=== PATIENT | female | born 1990 | race Caucasian/White ===

== ENCOUNTER 2021-11-18 09:14 | Emergency (ER) | payer OTHER, SELFPAY ==
[2021-11-18 09:15] VITALS: BP 106/62; PULSE 89; RESP 14; TEMP 36.1; O2SAT 97; BMI 31.7
--- NOTE | 2021-11-18 09:53 | EDS_ITS ---
HPI History of Present Illness Chief Complaint: Back Informant: patient Onset/Context/Timing Onset: Today Context: Gradual Onset Timing: Continuous Quality: Sharp and Aching Location: Lumbar and Right Leg Worsened by: improves with Movement Relieved by: Nothing Associated Symptoms Associated Symptoms: Radiation to Right Leg; Negative for Numbness, Tingling, Radiation to Left Leg, Abdominal Pain, Dysuria, Unable to Ambulate, Unable to Transfer, Urinary Retention, Urinary Incontinence, Constipation and Fecal Incontinence Narrative Narrative: Patient presents with low back pain that became worse today. Patient states she has a history of chronic low back pain. Patient states she recently moved to the area and has a new primary care physician but has not seen them ye t. Patient states her pain is over her lower lumbar area. Patient states the pain radiates down her right leg. Patient states nothing makes it better. Patient states it is worse with movement. Patient denies any fevers or chills. Patient denies any abdominal pain. Patient denies any bowel or bladder changes. Patient denies any saddle anesthesia. [facility] LICENSE OF [facility] Medical History Bipolar disorder Home Medications fluoxetine 40 mg PO DAILY 11/18/21 [History Last Taken Unknown] hydrocodone-acetaminophen 1 tab PO Q6H PRN PRN 3 Days #10 tablet 11/18/21 [Rx Last Taken Unknown] Allergy/AdvReac Type Severity Reaction Status Date / Time sumatriptan [From Imitrex] Allergy Mild Other Verified 11/18/21 09:17 Social History Smoking Status: Never smoker ROS ROS ED Constitutional Constitutional ED: Denies chills or fever(s) Eyes Eyes: Denies blurry vision or change in vision ENT ENT ED: Denies rhinorrhea or sore throat Cardiovascular Cardiovascular: Denies chest pain or palpitations Respiratory/Chest Respiratory/Chest: Denies cough or dyspnea Gastrointestinal Gastrointestinal: Denies nausea or vomiting Genitourinary Genitourinary ED: Denies dysuria or hematuria Musculoskeletal Musculoskeletal: Reports back pain; Denies neck pain Integumentary Denies abscess or rash Neurologic Neurologic: Denies headache(s) or weakness Allergic/Immunologic Allergic/Immunologic ED: Denies mouth swelling or urticaria EXAM Physical Exam Const Vital Signs: 11/18/21 09:15 Temperature 97.0 F L Temperature Source Temporal Pulse Rate 89 Respiratory Rate 14 Blood Pressure 106/62 Blood Pressure Mean 76 Pulse Ox 97 Oxygen Delivery Method Room Air Positive well nourished, well developed and obese General Appearance ED: well developed Nutritional Appearance: obese HEENT Reports moist mucous membranes Neck supple and no JVD Back/Spine Back/Spine Narrative: There is tenderness over the lower lumbar spine and paraspinal muscles, worse on the right. There is no edema or ecchymosis. There is no bony crepitance or step-off. Range of motion was slightly limited in all motions of the lumbar spine secondary to pain. Strength is 5/5 bilaterally in the lower extremities. There are no sensory deficits noted. Deep tendon reflexes are 2/4 bilaterally. Neuro oriented x3 and no sensory deficits noted Sensorium / Orientation: alert Motor Exam: strength 5/5 throughout Deep Tendon Reflexes: Rt Patellar (L4): 2+, Lt Patellar (L4): 2+, Rt Ankle (S1): 2+ and Lt Ankle (S1): 2+ Deep Tendon Reflexes Back: Rt Patellar (L4): 2+, Lt Patellar (L4): 2+, Rt Ankle (S1): 2+ and Lt Ankle (S1): 2+ Psych mental status grossly normal MDM MDM MDM Narrative Medical decision making narrative: Patient was given injection of morphine here. Patient was given a prescription for short course of [place]. Patient was instructed to use ice to the area. Patient was instructed to follow-up with her primary care physician in 5 to 7 days. Patient understood and was agreeable with the plan. All questions were answered. Discharge Plan Triage Chief Complaint: Back ED Provider: Ernesto Burt Dx/Rx/DC Orders Clinical Impression: Sciatica Instructions: ED Sciatica Prescriptions: New hydrocodone-acetaminophen [hydrocodone-acetaminophen] 1 TABLET tablet 1 tab PO Q6H PRN PRN (Reason: Pain) 3 Days Qty: 10 RF: 0 No Action fluoxetine 40 mg Capsule 40 mg PO DAILY RF: 0 Referrals: Rg Muñoz MD [NON-STAFF] - 3-5 Days Disposition Disposition: Home, Self Care
[2021-11-18] MEDS: Morphine 4 MG/ML Syringe IM (10:13)
[2021-11-18 10:25] VITALS: PULSE 73; RESP 16; O2SAT 98
--- NOTE | 2021-11-18 10:26 | ED.RN ---
THIS NURSE REVIEWED D/C INSTRUCTIONS WITH PT. PT VERBALIZED UNDERSTANDING OF INSTRUCTIONS. PT DENIES FURTHER NEEDS OR QUESTIONS AT THIS TIME
== END 2021-11-18 10:30 | disposition home or self-care (01) ==
LOC: ED 10:14
PROVIDERS: Emergency Provider Emergency Medicine; Visit Provider Emergency Medicine
DX: M54.41 Lumbago with sciatica, right side (principal); E66.9 Obesity, unspecified; Z79.899 Other long term (current) drug therapy
CPT/HCPCS: 96372; 99282

== ENCOUNTER 2021-11-26 08:16 | Emergency (ER) | payer OTHER, SELFPAY ==
[2021-11-26 08:17] VITALS: BP 108/74; PULSE 90; RESP 16; TEMP 36.1; O2SAT 98; BMI 31.8
--- NOTE | 2021-11-26 08:36 | ED.VIS.BACK ---
HPI History of Present Illness Chief Complaint: Back Narrative Narrative: Patient has chronic back pain. This has been ongoing for a few years, she exacerbated it again about a month ago and is has had pain ever since. She does have an appointment but it is 3 weeks from now. She has no radiation of the pain she has no bowel or bladder compromise. No urinary retention symptoms. No recent fever or chills. She does not know an event that would have caused this pain. [facility] Medical History Bipolar disorder Home Medications fluoxetine 40 mg PO DAILY 11/18/21 [History Last Taken Unknown] hydrocodone-acetaminophen 1 tab PO Q6H PRN PRN 3 Days #10 tablet 11/18/21 [Rx Last Taken Unknown] hydrocodone-acetaminophen 1 tab PO Q8H PRN 3 Days #10 tab 11/26/21 [Rx Last Taken Unknown] tizanidine 4 mg PO QHS PRN #20 tab 11/26/21 [Rx Last Taken Unknown] Allergy/AdvReac Type Severity Reaction Status Date / Time sumatriptan [From Imitrex] Allergy Mild Other Verified 11/26/21 08:20 Social History Smoking Status: Never smoker ROS ROS ED ROS Narrative Past medical history: Reviewed Medications: Reviewed Social history: Noncontributory Review of systems: All systems negative except as indicated General: No fever Eyes: No visual changes ENT: No upper airway congestion, normal voice Neck: No neck pain Cardiovascular: No chest pain Respiratory: No shortness of breath or cough Gastrointestinal: No abdominal pain, nausea vomiting or diarrhea Genitourinary: No dysuria. No urinary retention symptoms Musculoskeletal: Back pain as in HPI Skin: No rash Neurological: No memory loss, confusion or any focal weakness Psych: No recent behavioral changes Hematologic: No easy bleeding or easy bruising EXAM Physical Exam Narrative Exam Narrative: Vitals reviewed General: Patient appears in some discomfort HEENT: Moist mucous membranes Neck: Nontender Cardiovascular normal heart rate Respiratory: No respiratory difficulty speaking in full sentences Abdomen: Soft and nontender, there is no suprapubic mass or pain Back: Some back pain in the lower back region both spinal and paraspinal. No step-offs. Some flattening of the lordosis. Extremities: Moves all extremities without joint pain or signs of trauma Neurological: There is normal plantar flexion and dorsiflexion of both feet and great toes. Patellar and Achilles reflexes are normal. Normal strength and sensation. Negative straight leg test. Skin: No rash Psychiatric: Slightly anxious. Const Vital Signs: 11/26/21 08:17 Temperature 97.0 F L Temperature Source Temporal Pulse Rate 90 Respiratory Rate 16 Blood Pressure 108/74 Blood Pressure Mean 85 Pulse Ox 98 Oxygen Delivery Method Room Air MDM MDM MDM Narrative Medical decision making narrative: Patient has back pain. No radicular symptoms. No signs of cauda equina. She has had x-rays in the past which were unremarkable. She does not meet criteria for MRI. I will treat her symptomatically she is to follow-up so she can get physical therapy and other treatments. Discharge Plan Triage Chief Complaint: Back ED Provider: Chapincito Negron Dx/Rx/DC Orders Clinical Impression: Acute lumbar myofascial strain Instructions: ED Back Pain (Acute or Chronic) Prescriptions: New hydrocodone-acetaminophen 5-325 mg tablet 1 tab PO Q8H PRN (Reason: pain) 3 Days Qty: 10 RF: 0 tizanidine 4 mg tablet 4 mg PO QHS PRN (Reason: muscle spasticity) Qty: 20 RF: 0 No Action fluoxetine 40 mg Capsule 40 mg PO DAILY RF: 0 hydrocodone-acetaminophen [hydrocodone-acetaminophen] 1 TABLET tablet 1 tab PO Q6H PRN PRN (Reason: Pain) 3 Days Qty: 10 RF: 0 Primary Care Provider: Care Physician,No Primary Referrals: Care Physician,No Primary [Primary Care Provider] - Disposition Disposition: Home, Self Care
[2021-11-26] MEDS: oxyCODONE 5 MG Tablet PO (09:07)
[2021-11-26] MEDS: cycloBENZAPRine HCl 10 MG Tablet PO (09:08)
== END 2021-11-26 09:32 | disposition home or self-care (01) ==
LOC: ED 08:42
PROVIDERS: Emergency Provider Emergency Medicine; Visit Provider Emergency Medicine
DX: S39.012A Strain of muscle, fascia and tendon of lower back, initial encounter (principal); G89.29 Other chronic pain; X58.XXXA Exposure to other specified factors, initial encounter
CPT/HCPCS: 99282

== ENCOUNTER 2021-12-06 03:22 | Emergency (ER) | payer OTHER, SELFPAY ==
[2021-12-06 03:23] VITALS: BP 106/58; PULSE 76; RESP 16; TEMP 36.8; O2SAT 95; BMI 32.3
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
[2021-12-06] MEDS: Ketorolac 60 MG/2 ML Vial IM (03:50)
[2021-12-06] MEDS: diazePAM 5 MG Tablet PO (03:51)
[2021-12-06] MEDS: oxyCODONE 5 MG Tablet 10 MG PO (03:51)
[2021-12-06 04:09] VITALS: BP 112/60; PULSE 79; RESP 18; O2SAT 96
== END 2021-12-06 04:10 | disposition home or self-care (01) ==
LOC: ED 03:56
PROVIDERS: Emergency Provider Emergency Medicine; Visit Provider Emergency Medicine
DX: M54.9 Dorsalgia, unspecified (principal); G89.29 Other chronic pain
CPT/HCPCS: 96372; 99283

== ENCOUNTER 2022-01-13 09:24 | Emergency (ER) | payer BC, OTHER, SELFPAY ==
[2022-01-13 09:25] VITALS: BP 107/75; PULSE 79; RESP 16; TEMP 35.9; O2SAT 99; BMI 30.9
--- NOTE | 2022-01-13 10:26 | ED.VIS.BACK ---
HPI History of Present Illness Chief Complaint: Back Informant: patient Onset/Context/Timing Onset: Days Context: Gradual Onset Timing: Continuous Quality: Dull and - (Stabbing) Location: Lumbar Worsened by: improves with Movement and Ambulation Relieved by: Nothing Associated Symptoms Associated Symptoms: Numbness, Tingling and Dysuria; Negative for Radiation to Right Leg, Radiation to Left Leg, Fever, Abdominal Pain, Unable to Ambulate, Unable to Transfer, Urinary Retention, Urinary Incontinence, Constipation and Fecal Incontinence Narrative Narrative: Patient presents with back pain that has gotten worse over the past couple days. Patient states it is constant. Patient describes it as dull and stabbing. Patient states it is in her lower back and radiates into both hips and buttocks. Patient states her pain is worse with movement and with ambulation. Patient admits to some numbness and tingling in her buttocks. Patient also admits to some dysuria. Patient denies any urinary or stool incontinence. Patient denies any saddle anesthesia. [facility] Medical History Bipolar disorder Home Medications fluoxetine 40 mg PO DAILY 01/13/22 [History Last Taken Unknown] hydrocodone-acetaminophen 1 tab PO Q6H PRN PRN 3 Days #10 tablet 01/13/22 [Rx Last Taken Unknown] Allergy/AdvReac Type Severity Reaction Status Date / Time sumatriptan [From Imitrex] Allergy Mild Other Verified 01/13/22 09:25 Social History Smoking Status: Never smoker substance use type: does not use ROS ROS ED Constitutional Constitutional ED: Denies chills or fever(s) Eyes Eyes: Denies blurry vision or change in vision ENT ENT ED: Reports rhinorrhea; Denies sore throat Cardiovascular Cardiovascular: Denies chest pain or palpitations Respiratory/Chest Respiratory/Chest: Denies cough or dyspnea Gastrointestinal Gastrointestinal: Denies nausea or vomiting Genitourinary Genitourinary ED: Denies dysuria or hematuria Musculoskeletal Musculoskeletal: Reports back pain; Denies neck pain Integumentary Denies abscess or rash Neurologic Neurologic: Reports headache(s); Denies weakness Allergic/Immunologic Allergic/Immunologic ED: Denies mouth swelling or urticaria EXAM Physical Exam Const Vital Signs: 01/13/22 09:25 Temperature 96.6 F L Temperature Source Temporal Pulse Rate 79 Respiratory Rate 16 Blood Pressure 107/75 Blood Pressure Mean 85 Pulse Ox 99 Oxygen Delivery Method Room Air Positive well nourished and well developed General Appearance ED: well developed HEENT Reports moist mucous membranes Back/Spine Back/Spine Narrative: There is tenderness over the lumbar spine and right lumbar paraspinal muscles. There is no edema or ecchymosis. There is no bony crepitance or step-off. There is no deformity noted. Range of motion was limited in all motions of the lumbar spine secondary to pain. Lumbar Spine / Lower Back: ROM limited Extremity normal to inspection General Extremety ED: Negative for edema or tenderness General Extremity: Negative for edema Neuro oriented x3 and no sensory deficits noted Sensorium / Orientation: alert Motor Exam: strength 5/5 throughout Deep Tendon Reflexes: Rt Patellar (L4): 2+, Lt Patellar (L4): 2+, Rt Ankle (S1): 2+ and Lt Ankle (S1): 2+ Deep Tendon Reflexes Back: Rt Patellar (L4): 2+, Lt Patellar (L4): 2+, Rt Ankle (S1): 2+ and Lt Ankle (S1): 2+ Psych mental status grossly normal MDM MDM MDM Narrative Medical decision making narrative: Patient was given a dose of [place] here. X-rays of the lumbar spine were obtained. There are 3 views. On my interpretation, there is no acute fracture. There is some mild degenerative changes. Urinalysis was obtained. There is no evidence of urinary tract infection. Patient was advised of her findings. Patient states she was still having some pain in her back. Patient was given an injection of morphine. Patient was given referral for primary care physician. Patient was given a prescription for a short course of [place]. Patient was instructed to use ice to the area. Patient was instructed to return if worse in any way. Patient understood and was agreeable with the plan. All questions were answered. Lab Data Attestation: I reviewed the patient's lab results. Labs: Laboratory Results - last 24 hr 01/13/22 12:30 Urine Color Yellow Urine Clarity Sl. Cloudy Urine pH 8.0 Ur Specific Cat[place] 1.010 Urine Protein Negative Urine Glucose (UA) Normal Urine Ketones Negative Urine Occult Blood Negative Urine Nitrite Negative Urine Bilirubin Negative Urine Urobilinogen Normal Ur Leukocyte Esterase Negative Urine RBC 0 SEEN Urine WBC 0 SEEN Ur Squamous Epith Cells 5-10 SEEN Urine Bacteria 0 SEEN Urine Mucus 0 SEEN Radiography X-Ray: LS SPine, Read by ED Physician, Read by Radiologist and DJD Diagnostic Testing: Clinical Impression(s) from Imaging Studies Lumbar Spine X-Ray 01/13/22 10:32 IMPRESSION: 1. Mild degenerative disc disease Electronically Signed: Tyrone Aguilera MD at 11:40 EST Reading Location ID and State: [address] [place] [address] , Service support , Discharge Plan Triage Chief Complaint: Back ED Provider: Ernesto Burt Dx/Rx/DC Orders Clinical Impression: Low back pain Instructions: ED Back Pain (Acute or Chronic) Prescriptions: New hydrocodone-acetaminophen [hydrocodone-acetaminophen] 1 TABLET tablet 1 tab PO Q6H PRN PRN (Reason: Pain) 3 Days Qty: 10 RF: 0 No Action fluoxetine 40 mg capsule 40 mg PO DAILY RF: 0 Primary Care Provider: Care Physician,No Primary Referrals: Quentin Zimmerman MD [STAFF PHYSICIAN] - 3-5 Days Care Physician,No Primary [Primary Care Provider] - Disposition Disposition: Home, Self Care
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
[2022-01-13] MEDS: HYDROcodone Bitartrate/Apap 5/325 Tablet PO (10:54)
--- NOTE | 2022-01-13 12:10 | CASEMGMT ---
DRU GARG note: Today's visit noted to be patient's fourth ER visit for back pain since 11/18/2021. DRU GARG to patient's room to speak with patient. DRU GARG introduced self and role at [facility]. Patient alert and oriented, agreeable to speaking with DRU GARG. Patient confirms that she does not have a primary care physician. Patient provided with [facility] Healthcare Provider Directory and encouraged to review directory and contact provider of choice to establish care. Patient questions, Are they affiliated with the [facility]? Because I don't want to see anybody at the [facility]. Patient made aware [facility] providers, as well as non-[facility] providers, listed on directory. Voiced understanding. Patient denies questions, concerns or needs. DRU Buckley CM
[2022-01-13] MEDS: Morphine 2 MG/ML Syringe IM (12:32)
[2022-01-13 12:36] LABS: Bacteria 0 SEEN /hpf (None Seen); Mucous, Urine 0 SEEN /hpf (<or=2+); Red Blood Cells-Urine 0 SEEN /hpf (0-5); White Blood Cells 0 SEEN /hpf (0-5)
[2022-01-13 12:38] LABS: Color, Urine Yellow (Yellow); Glucose, Dipstick Normal (Normal); Ketone-Dipstick Negative (Negative); Leukocyte Esterase-Dipstick Negative /ul (Negative); Nitrite-Dipstick Negative (Negative); Occult Blood-Urine Negative /ul (Negative); Protein-Dipstick Negative (Negative); Urine Bilirubin Dipstick Negative (Negative); Urine Clarity Sl. Cloudy (Clear); Urine Urobilinogen Normal (Normal)
[2022-01-13 12:47] LABS: Squamous Epithelial Cells - UA 5-10 SEEN /hpf (5-10)
== END 2022-01-13 13:36 | disposition home or self-care (01) ==
PROVIDERS: Emergency Provider Emergency Medicine; Visit Provider Emergency Medicine
DX: M54.50 Low back pain, unspecified (principal); Z79.899 Other long term (current) drug therapy
CPT/HCPCS: 72100; 81001; 96372; 99283

== ENCOUNTER 2022-04-18 07:30 | Emergency (ER) | payer BC, OTHER, SELFPAY ==
[2022-04-18 07:31] VITALS: BP 107/71; PULSE 78; RESP 16; TEMP 36.5; O2SAT 97; BMI 31.8
--- NOTE | 2022-04-18 08:09 | EDS_ITS ---
HPI History of Present Illness Chief Complaint: Back Narrative Narrative: 32-year-old female presenting with back pain. She described this is nontraumatic. She describes this as a chronic recurrent issue. She describes it as right-sided radiating to the right gluteal and right hamstring. She is able to ambulate although it is worse with movement. Its worse with twisting and rotating her trunk. She states she is seen a physician in [place] for this as well as in [place]. She states that she is also seeing a primary care here in [place]. She states that she was told she is going to need physical therapy although she has not done this recently. Her last physical therapy was in June with a different physician out of state. Patient states that this was unsuccessful. No urinary complaints. No loss of bladder or bowel control. [facility] Medical History Bipolar disorder Home Medications fluoxetine 40 mg PO DAILY 01/13/22 [History Last Taken Unknown] prednisone 40 mg PO DAILY 2 Days #8 tab 04/18/22 [Rx Last Taken Unknown] tizanidine [Zanaflex] 4 mg PO Q8H PRN #14 cap 04/18/22 [Rx Last Taken Unknown] Allergy/AdvReac Type Severity Reaction Status Date / Time sumatriptan [From Imitrex] Allergy Mild Other Verified 04/18/22 07:33 Social History Smoking Status: Never smoker alcohol intake: current substance use type: does not use ROS ROS ED Constitutional Constitutional ED: Denies chills, fever(s) or sweats Eyes Eyes: Denies blurry vision or change in vision ENT ENT ED: Denies ear pain or sore throat Cardiovascular Cardiovascular: Denies chest pain, palpitations or racing heartbeat Respiratory/Chest Respiratory/Chest: Denies cough, dyspnea or sputum Gastrointestinal Gastrointestinal: Denies abdominal pain, constipation, diarrhea, nausea or vomiting Genitourinary Genitourinary ED: Denies dysuria, hematuria or urinary frequency Musculoskeletal Musculoskeletal: Reports back pain; Denies arthralgias, myalgias or neck pain Integumentary Denies abscess, Abrasions or rash Neurologic Neurologic: Denies headache(s), paresthesias or weakness Psychiatric Psychiatric: Denies anxiety, depression, suicidal ideation or suicidal thoughts Endocrine Endocrinology: Denies polydipsia or polyuria EXAM Physical Exam Const Vital Signs: 04/18/22 07:31 Temperature 97.7 F L Temperature Source Temporal Pulse Rate 78 Respiratory Rate 16 Blood Pressure 107/71 Blood Pressure Mean 83 Pulse Ox 97 Oxygen Delivery Method Room Air Positive well nourished General Appearance ED: NAD HEENT Reports moist mucous membranes Negative for trauma Eyes PERRL and EOMs intact bilaterally Resp normal respiratory effort Cardio regular rate and regular rhythm Back/Spine Lumbar Spine / Lower Back: lumbar ROM normal, paraspinal muscle tenderness right and straight leg raise positive right at 40 degrees; Negative for lumbar spinal tenderness Sacrum: Negative for ecchymosis Coccyx: Negative for swelling Extremity normal to inspection General Extremety ED: Yes edema and tenderness General Extremity: edema Neuro oriented x3 and no sensory deficits noted Sensorium / Orientation: alert Motor Exam: strength 5/5 throughout Psych mental status grossly normal Skin no rashes or lesions noted MDM MDM MDM Narrative Medical decision making narrative: Patient presenting with recurrent back pain. She states she was told she needs physical therapy to improve this. She states this is currently nontraumatic and she woke up with pain. She denies any loss of bladder bowel control. She denies saddle anesthesia. She does have some radicular pain going down her right gluteal and hamstring on the right. Patient given Norflex and Toradol in the ER. I spent a great deal of time discussing with her the process of physical therapy and trying to improve. I also discussed with her stretching exercises to help her improve her pain. She will be given a prescription for prednisone and muscle relaxers. I do not believe she is needs any imaging as this is nontraumatic and she has had imaging in the past which was nondiagnostic. Patient appears to be amenable to this plan and she is discharged home in stable condition. Impression: 1. Lumbar strain 2. Lumbar radiculopathy Lab Data Attestation: I reviewed the patient's lab results. Discharge Plan Triage Chief Complaint: Back ED Provider: Dinesh Shepard Dx/Rx/DC Orders Instructions: Back Exercises: Lower Back Stretch, ED Back Exercises, Lumbar, ED Back Sprain/Strain Prescriptions: New tizanidine [Zanaflex] 4 mg capsule 4 mg PO Q8H PRN (Reason: muscle spasticity) Qty: 14 RF: 0 prednisone 10 mg tablet 40 mg PO DAILY 2 Days Qty: 8 RF: 0 No Action fluoxetine 40 mg capsule 40 mg PO DAILY RF: 0 Primary Care Provider: Fouzia Amezquita NP Referrals: Fouzia Amezquita NP, [employer]ER-[employer] [Primary Care Provider] - Disposition Disposition: Home, Self Care
[2022-04-18] MEDS: predniSONE 20 MG Tablet 60 MG PO (08:12)
[2022-04-18] MEDS: Orphenadrine 60 MG/2 ML Ampul IM (08:12)
[2022-04-18] MEDS: Ketorolac 15 MG/ML Vial IM (08:13)
== END 2022-04-18 08:43 | disposition home or self-care (01) ==
PROVIDERS: Emergency Provider Student in an Organized Health Care Education/Training Program; PCP Clinical Nurse Specialist; Visit Provider Student in an Organized Health Care Education/Training Program
DX: S39.012A Strain of muscle, fascia and tendon of lower back, initial encounter (principal); F31.9 Bipolar disorder, unspecified; X58.XXXA Exposure to other specified factors, initial encounter; M54.16 Radiculopathy, lumbar region; G89.29 Other chronic pain
CPT/HCPCS: 96372; 99283

== ENCOUNTER 2023-07-14 09:28 | Emergency (ER) | payer OTHER, SELFPAY ==
[2023-07-14 09:29] VITALS: PULSE 78; RESP 14; TEMP 36.4; O2SAT 98; BMI 29.2
--- NOTE | 2023-07-14 09:40 | EDS_ITS ---
HPI History of Present Illness Chief Complaint: Headache Narrative Narrative: Patient presents with a gradual onset of headache for few days. This is similar to prior migraine headaches. She has photophobia but no vision changes she has some nausea but no vomiting. She has no neck pain or stiffness she has no fevers or chills. She has no neurological symptoms. [facility] Medical History Bipolar disorder Home Medications fluoxetine 40 mg capsule 40 mg PO DAILY 01/13/22 [History Last Taken Unknown] prednisone 10 mg tablet 40 mg (4 x 10 mg) PO DAILY 2 days #8 tabs 04/18/22 [Rx Last Taken Unknown] tizanidine 4 mg capsule (Zanaflex) 4 mg PO Q8H PRN muscle spasticity #14 caps 04/18/22 [Rx Last Taken Unknown] Allergy/AdvReac Type Severity Reaction Status Date / Time sumatriptan [From Imitrex] Allergy Mild Other Verified 04/18/22 07:33 Social History Smoking Status: Never smoker alcohol intake: current substance use type: does not use ROS ROS ED ROS Narrative Past medical history: Reviewed Medications: Reviewed Social history: Noncontributory Review of systems: All systems negative except as indicated General: No fever. Headache as in HPI Eyes: No visual changes. Some photophobia ENT: No upper airway congestion, normal voice Neck: No neck pain Cardiovascular: No chest pain Respiratory: No shortness of breath or cough Gastrointestinal: No abdominal pain. There is nausea present Genitourinary: No dysuria Musculoskeletal: Denies myalgias no difficulty with ambulation Skin: No rash Neurological: No memory loss, confusion or any focal weakness EXAM Physical Exam Narrative Exam Narrative: Physical exam General: Patient appears somewhat uncomfortable Head: Normocephalic, Atraumatic Eyes: Conjunctiva not pale. Pupils are 3 mm and reactive ENT: Moist mucous membranes Neck: Supple, Nontender, No lymphadenopathy. No meningismus Cardiovascular: Regular rate, Regular rhythm Respiratory: No distress, CTA bilaterally Abdomen: Soft, Nontender, Nondistended Back: Nontender, Normal Inspection. Negative for: CVA tenderness Extremities: Nontender, No edema Skin: Normal color, No rash Neurological: Alert, Normal Strength, Normal Sensation Const Vital Signs: 07/14/23 09:29 Temperature 97.5 F L Temperature Source Temporal Pulse Rate 78 Respiratory Rate 14 Pulse Ox 98 Oxygen Delivery Method Room Air MDM MDM MDM Narrative Medical decision making narrative: Patient has a gradual onset of her chronic recurrent migraine. She has no neurological symptoms, she has no neck stiffness or fever or chills. Therefore I believe she likely has a migraine. I am not worried about meningitis, I am n ot worried about any intracranial mass, I am not worried about any kind of stroke or subarachnoid hemorrhage. Patient does not meet criteria for head CT. She does not meet criteria for any blood work. She received IV fluids and headache cocktail with significant improvement of her symptoms. I believe she can be safely discharged home. Discharge Plan Triage Chief Complaint: Headache ED Provider: Chapincito Negron Dx/Rx/DC Orders Clinical Impression: Migraine, Nausea Instructions: ED Headache Unspecified Prescriptions: No Action fluoxetine 40 mg capsule 40 mg PO DAILY Patient Comments: take 1 capsule by mouth once daily tizanidine [Zanaflex] 4 mg capsule 4 mg PO Q8H PRN (Reason: muscle spasticity) Qty: 14 0RF prednisone 10 mg tablet 40 mg PO DAILY 2 Days Qty: 8 0RF Primary Care Provider: Fouzia Amezquita NP Referrals: Fouzai Amezquita REAL ESTATE INVESTOR, REAL ESTATE INVESTOR-C [Primary Care Provider] - 3-5 Days Disposition Disposition: Home, Self Care
[2023-07-14] MEDS: 0.9% Normal Saline 1,000 ML 999 ML IV (09:49)
[2023-07-14] MEDS: Metoclopramide 10 MG/2 ML Vial IV (09:50)
[2023-07-14] MEDS: DiphenhydrAMINE 50 MG/ML Syringe 25 MG IV (09:51)
[2023-07-14] MEDS: Ketorolac 15 MG/ML Vial IV (09:52)
[2023-07-14 11:02] VITALS: BP 154/72; PULSE 76; RESP 16; O2SAT 99
== END 2023-07-14 11:03 | disposition home or self-care (01) ==
PROVIDERS: Emergency Provider Emergency Medicine; PCP Clinical Nurse Specialist; Visit Provider Emergency Medicine
DX: G43.909 Migraine, unspecified, not intractable, without status migrainosus (principal)
CPT/HCPCS: 96361; 96374; 96375; 99283; J7030

== ENCOUNTER 2023-07-16 09:07 | Emergency (ER) | payer OTHER, SELFPAY ==
[2023-07-16 09:08] VITALS: BP 89/77; PULSE 55; RESP 14; TEMP 36.6; O2SAT 97; BMI 30.9
[2023-07-16] MEDS: DiphenhydrAMINE 50 MG/ML Syringe 25 MG IV (09:41)
[2023-07-16] MEDS: 0.9% Normal Saline 1,000 ML 999 ML IV (09:41)
[2023-07-16] MEDS: Ketorolac 30 MG/ML Syringe IV (09:42)
[2023-07-16] MEDS: Metoclopramide 10 MG/2 ML Vial IV (09:42)
--- NOTE | 2023-07-16 10:53 | EX.ED.DYSGE1 ---
HPI History of Present Illness Chief Complaint: Headache Informant: patient Onset/Context/Timing Onset: Today Context: Gradual Onset Current Severity: Moderate Maximum Severity: Moderate Narrative Narrative: Patient presents secondary to migraine that started this morning. Was gradual in onset. She does have a history of migraines. Patient was actually treated in the ER couple days ago for similar. She states that she also has some head congestion with nausea and chills. [facility] Medical History (Updated 07/16/23 @ 10:[address] Tracey Coleman MD) Bipolar disorder Migraine Home Medications fluoxetine 40 mg capsule 40 mg PO DAILY 01/13/22 [History Last Taken Unknown] prednisone 10 mg tablet 40 mg (4 x 10 mg) PO DAILY 2 days #8 tabs 04/18/22 [Rx Last Taken Unknown] tizanidine 4 mg capsule (Zanaflex) 4 mg PO Q8H PRN muscle spasticity #14 caps 04/18/22 [Rx Last Taken Unknown] Allergy/AdvReac Type Severity Reaction Status Date / Time sumatriptan [From Imitrex] Allergy Mild Other Verified 07/16/23 09:08 Social History Smoking Status: Never smoker alcohol intake: current substance use type: does not use ROS ROS ED Constitutional Constitutional ED: Reports chills; Denies fever(s) Eyes Eyes: Reports other Details: Sees wavy lines in vision consistent with prior migraines ENT ENT ED: Reports other Details: Head congestion ; Denies rhinorrhea or sore throat Cardiovascular Cardiovascular: Denies chest pain or palpitations Respiratory/Chest Respiratory/Chest: Reports cough; Denies dyspnea Gastrointestinal Gastrointestinal: Denies abdominal pain, nausea or vomiting Genitourinary Genitourinary ED: Denies dysuria Musculoskeletal Musculoskeletal: Denies back pain or extremity pain Integumentary Denies Abrasions or rash Neurologic Neurologic: Reports headache(s); Denies weakness Psychiatric Psychiatric: Denies anxiety or depression Allergic/Immunologic Allergic/Immunologic ED: Denies lip swelling or urticaria EXAM Physical Exam Const Vital Signs: 07/16/23 09:08 Temperature 98 F Temperature Source Temporal Pulse Rate 55 L Respiratory Rate 14 Blood Pressure 89/77 L Blood Pressure Mean 81 Pulse Ox 97 Oxygen Delivery Method Room Air Positive well nourished and well developed General Appearance ED: well developed HEENT Reports moist mucous membranes Eyes EOMs intact bilaterally Chest Wall inspection of chest normal and palpation of chest normal Resp normal respiratory effort and clear to auscultation bilaterally Cardio regular rhythm Rate: bradycardia GI normal to inspection, nondistended, normoactive bowel sounds Extremity normal to inspection Neuro oriented x3 and no sensory deficits noted Motor Exam: strength 5/5 throughout Skin no rashes or lesions noted MDM MDM MDM Narrative Medical decision making narrative: Patient was given Toradol, Reglan, Benadryl, IV fluids. Given her congestion a COVID and influenza test is obtained. Treatment and Re-Evaluation :: On repeat evaluation patient reports feeling much improved. Her COVID test did return positive. This was discussed with her. She was encouraged to contact her company to determine how long she will need to be off work. Return instructions given. Discharge Plan Triage Chief Complaint: Headache ED Provider: Tracey Coleman Dx/Rx/DC Orders Clinical Impression: COVID, Migraine Instructions: Coronavirus Disease 2019 (COVID-19): Overview, Coronavirus Disease 2019 (COVID-19): Caring for Yourself or Others, ED, Migraine (Classical) Prescriptions: No Action fluoxetine 40 mg capsule 40 mg PO DAILY Patient Comments: take 1 capsule by mouth once daily tizanidine [Zanaflex] 4 mg capsule 4 mg PO Q8H PRN (Reason: muscle spasticity) Qty: 14 0RF prednisone 10 mg tablet 40 mg PO DAILY 2 Days Qty: 8 0RF Stand Alone Forms: ED Work / School Excuse Primary Care Provider: Fouzia Amezquita NP Referrals: Fouzia Amezquita NP, [employer]OES SALESPERSON-C [Primary Care Provider] - 1-2 Weeks Disposition Disposition: Home, Self Care
[2023-07-16 11:16] VITALS: BP 105/66; PULSE 63; RESP 18; O2SAT 100
== END 2023-07-16 11:17 | disposition home or self-care (01) ==
PROVIDERS: Emergency Provider Emergency Medicine; PCP Clinical Nurse Specialist; Visit Provider Emergency Medicine
DX: U07.1 COVID-19 (principal); G43.909 Migraine, unspecified, not intractable, without status migrainosus
CPT/HCPCS: 87428; 96361; 96374; 96375; 99283; J7030; A4216

== ENCOUNTER 2023-07-24 10:01 | Emergency (ER) | payer OTHER, SELFPAY ==
[2023-07-24 10:03] VITALS: BP 115/74; PULSE 72; RESP 14; TEMP 35.1; O2SAT 97; BMI 30.2
--- NOTE | 2023-07-24 10:17 | EX.ED.VIS.HA ---
HPI History of Present Illness Chief Complaint: Headache Detail of Chief Complaint: Diagnosed with COVID about 8 days ago. Informant: patient Onset/Context/Timing Onset: Today Context: Gradual Timing: Continuous Quality -Headache: Positive for Similar Prior Headaches and Dull Current Severity: Mild Maximum Severity: Mild Associated Symptoms/Injury Associated Symptoms: Positive for Nausea and Vomiting Injury - HICKS: Negative for Direct Trauma, Fall or Assault Narrative Narrative: 33 -year-old female history of bipolar disorder migraine headaches. Seen in ER twice last week on diagnosed with COVID. She been having intermittent headaches. She has had imaging in the past and has no history of brain aneurysms. No fall or trauma. Sister is also tested positive for COVID recently. She has had some nausea and vomiting. Prior similar symptoms: Yes Recent Illness/Hospitalization: No PFSH PFSH Medical History Bipolar disorder Migraine Home Medications fluoxetine 40 mg capsule 40 mg PO DAILY 01/13/22 [History Last Taken Unknown] prednisone 10 mg tablet 40 mg (4 x 10 mg) PO DAILY 2 days #8 tabs 04/18/22 [Rx Last Taken Unknown] tizanidine 4 mg capsule (Zanaflex) 4 mg PO Q8H PRN muscle spasticity #14 caps 04/18/22 [Rx Last Taken Unknown] ondansetron 4 mg disintegrating tablet 4 mg PO Q6H PRN nausea and vomiting #7 tabs 07/24/23 [Rx Last Taken Unknown] Allergy/AdvReac Type Severity Reaction Status Date / Time sumatriptan [From Imitrex] Allergy Mild Other Verified 07/24/23 10:02 Social History Smoking Status: Never smoker alcohol intake: current substance use type: does not use ROS ROS ED ROS Narrative Headache. Nausea and vomiting. Body aches. Review of Systems ROS Unobtainable: Denies due to encephalopathy Constitutional Constitutional ED: Reports chills and fever(s) Eyes Eyes: Denies blurry vision ENT ENT ED: Denies ear pain, rhinorrhea or sore throat Respiratory/Chest Respiratory/Chest: Reports cough Gastrointestinal Gastrointestinal: Reports nausea and vomiting; Denies abdominal pain, constipation, diarrhea or melena Genitourinary Genitourinary ED: Denies dysuria or hematuria Integumentary Denies abscess Neurologic Neurologic: Reports headache(s) Psychiatric Psychiatric: Denies anxiety Endocrine Endocrinology: Denies polydipsia Hematologic/Lymphatic Hematologic/Lymphatic: Denies easy bleeding or easy bruising Allergic/Immunologic Allergic/Immunologic ED: Denies mouth swelling or tongue swelling EXAM Physical Exam Narrative Exam Narrative: Well-appearing 33-year-old female. Vital signs stable afebrile. Does not look septic toxic or in distress. HEENT exam unremarkable. Moist with membranes. Posterior pharynx unremarkable. Neck nontender no lymphadenopathy. No meningismus. Lungs clear to auscultation bilaterally. Heart regular rhythm rate about 70 no murmur. Chest wall nontender. Abdomen soft nontender. Back nontender. Moving all 4 extremities. Neurovascular intact. NIH is 0. Normal neurologic exam. Awake alert. Oriented. Answering questions following commands. Exam. Const Vital Signs: 07/24/23 10:03 Temperature 95.2 F L Temperature Source Temporal Pulse Rate 72 Respiratory Rate 14 Blood Pressure 115/74 Blood Pressure Mean 87 Pulse Ox 97 Oxygen Delivery Method Room Air Positive well nourished and well developed; Negative for cachectic, contractures or unkempt General Appearance ED: well developed and NAD; Negative for unkempt, cachectic, contractures, cyanotic or diaphoretic Nutritional Appearance: Negative for cachectic HEENT Reports normocephalic and moist mucous membranes atraumatic; Negative for trauma, tenderness, temporal artery tenderness or vesicular rash Face and Sinus: Negative for sinus tenderness Eyes PERRL and EOMs intact bilaterally General Eye ED: Negative for pale conjunctiva or scleral icterus Neck no lymphadenopathy, supple, no meningeal signs and no JVD General: Negative for tenderness Resp normal respiratory effort and clear to auscultation bilaterally Effort and Inspection: Negative for retractions Auscultation: Negative for rales, rhonchi or wheezes Cardio regular rate, regular rhythm, S1 normal heart sound, S2 normal heart sound and no murmurs Rate: Negative for bradycardia or tachycardic Rhythm: Negative for abnormal rhythm GI non-tender and non-distended Auscultation: normoactive bowel sounds Palpation: soft; Negative for firm or tender Back/Spine no CVA tenderness General Back: Negative for CVA tenderness Cervical Spine: Negative for cervical spine tenderness Thoracic Spine / Upper Back: Negative for thoracic spinal tenderness Lumbar Spine / Lower Back: Negative for lumbar spinal tenderness Extremity normal to inspection, full ROM and normal capillary refill General Extremety ED: Negative for edema or tenderness General Extremity: Negative for edema Neuro oriented x3, CN's II-XII intact bilaterally and no sensory deficits noted Sensorium / Orientation: awake, alert, oriented to person, oriented to place and oriented to time; Negative for orientation impaired, lethargic or stuporous Coordination / Balance: [id number]-cp-coxb test normal Speech: speech normal Motor Exam: strength 5/5 throughout Psych mental status grossly normal Appearance: Negative for unkempt Attitude: No agitated Mood & Affect: Negative for depressed, anxious or tearful Skin General Skin Exam: elasticity normal Lesions: no lesions Rashes: no rashes Trauma: Negative for abrasion MDM MDM MDM Narrative Medical decision making narrative: [id number] female COVID-positive 8 days ago. Symptoms consistent with COVID and also migraine headaches. Exam very benign. Neurologic exam normal. Treated with IM Toradol. P.o. Zofran. Discharged home with a prescription for Zofran. Outpatient follow-up. Off work today. History & Record Review Discussion w/independent historian: Patient Discharge Plan Triage Chief Complaint: Headache Other Complaint: Nausea/Vomiting ED Provider: Lauri Mena Dx/Rx/DC Orders Clinical Impression: COVID, Migraine headache Instructions: Human Coronaviruses, ED, Migraine (Classical) Prescriptions: New ondansetron 4 mg tablet,disintegrating 4 mg PO Q6H PRN (Reason: nausea and vomiting) Qty: 7 0RF No Action fluoxetine 40 mg capsule 40 mg PO DAILY Patient Comments: take 1 capsule by mouth once daily tizanidine [Zanaflex] 4 mg capsule 4 mg PO Q8H PRN (Reason: muscle spasticity) Qty: 14 0RF prednisone 10 mg tablet 40 mg PO DAILY 2 Days Qty: 8 0RF Primary Care Provider: Fouzia Amezquita NP Referrals: Fouzia Amezquita AERONAUTICS TEACHER, AERONAUTICS TEACHER-C [Primary Care Provider] - 1 Week if not improving Activity Restrictions/Additional Instructions: Motrin and Tylenol for body aches and headaches. Fluids and rest Zofran as needed for nausea. Primary care provider if not improving. Off work today. May return to normal work on Thursday. That is July 27. Disposition Disposition: Home, Self Care
[2023-07-24] MEDS: Ondansetron ODT 4 MG Tablet PO (10:50)
[2023-07-24] MEDS: Ketorolac 60 MG/2 ML Vial IM (10:50)
== END 2023-07-24 11:08 | disposition home or self-care (01) ==
LOC: ED 10:30
PROVIDERS: Emergency Provider Emergency Medicine; PCP Clinical Nurse Specialist; Visit Provider Emergency Medicine
DX: U07.1 COVID-19 (principal); F31.9 Bipolar disorder, unspecified; R11.2 Nausea with vomiting, unspecified; G43.909 Migraine, unspecified, not intractable, without status migrainosus; Z79.899 Other long term (current) drug therapy
CPT/HCPCS: 96372; 99283

== ENCOUNTER 2023-10-05 11:07 | Emergency (ER) | payer OTHER, SELFPAY ==
[2023-10-05 11:08] VITALS: BP 115/72; PULSE 79; RESP 14; TEMP 36.6; O2SAT 100; BMI 65.3
--- NOTE | 2023-10-05 11:25 | CT_ITS ---
STUDY: CT ABDOMEN AND PELVIS WITH CONTRAST REASON FOR EXAM: Female, 33 years old. abdominal pain RADIATION DOSAGE (If Supplied By Facility): CTDIvol = ( 11.57 ) mGy, DLP = ( 428.35 ) mGycm TECHNIQUE: Transaxial images were obtained from the dome of the diaphragm to the symphysis pubis without oral contrast. IV 100mL Isovue-300 was administered. Sagittal and coronal images were reconstructed. Individualized dose optimization techniques were used for this CT. COMPARISON: None. FINDINGS: The visualized lung bases are unremarkable. The visualized portions of the heart are within normal limits. Normal liver. Normal gallbladder and extrahepatic biliary system. Normal spleen. Normal pancreas. Normal bilateral adrenal glands. Normal right kidney. Normal left kidney. Normal visualized stomach. Normal small intestine. Normal colon. The appendix is visualized and appears normal. Appendix seen on coronal recon image 57 Normal abdominal aorta. Normal inferior vena cava. Normal retroperitoneum. Normal urinary bladder. Normal visualized uterus. Physiologic ovarian cysts noted, no demonstrated free fluid. There is a small umbilical hernia containing fat. Normal osseous structures. CT/Abdomen/Pelvis W IV Cont ONLY IMPRESSION: No suspicious solid organ abnormality No free intraperitoneal fluid, air, or suspicious adenopathy. Normal appendix visualized Electronically Signed: Gennaro Kee MD at 12:33 EST ,
--- NOTE | 2023-10-05 11:27 | EX.ED.DYSGE1 ---
HPI <TRUONG Orozco - Last Filed: 10/05/23 13:18> History of Present Illness Chief Complaint: GI Bleed Narrative Narrative: Patient is a 33-year-old female with history of migraine headaches, bipolar disorder, who is currently being treated for right hip strain who has been taking ibuprofen 600 mg twice a day for 1 week, she did not take any today. Patient presents the emergency department with 2 days of generalized abdominal cramping, abdominal pain, nausea and vomiting. Patient states this morning she had a bowel movement that was straight blood. Patient states this concerned her and this is what brought her in for evaluation. She denies any fever or chills, she denies any recent antibiotic use. She is concerned secondary to abdominal pain. She denies any history of abdominal surgeries, she denies being sexually active at this time, she denies any history of hemorrhoids. PFSH <TRUONG Orozco - Last Filed: 10/05/23 13:18> [facility]LY [facility], [facility] Medical History (Updated 10/05/23 @ 13:16 by TRUONG Orozco) Bipolar disorder COVID Migraine Home Medications fluoxetine 40 mg capsule 40 mg PO DAILY 01/13/22 [History Last Taken Unknown] prednisone 10 mg tablet 40 mg (4 x 10 mg) PO DAILY 2 days #8 tabs 04/18/22 [Rx Last Taken Unknown] tizanidine 4 mg capsule (Zanaflex) 4 mg PO Q8H PRN muscle spasticity #14 caps 04/18/22 [Rx Last Taken Unknown] ondansetron 4 mg disintegrating tablet 4 mg PO Q6H PRN nausea and vomiting #7 tabs 07/24/23 [Rx Last Taken Unknown] dicyclomine 20 mg tablet 20 mg PO TID #30 tabs 10/05/23 [Rx Last Taken Unknown] Allergy/AdvReac Type Severity Reaction Status Date / Time sumatriptan [From Imitrex] Allergy Mild Other Verified 07/24/23 10:02 Social History Smoking Status: Unknown if ever smoked alcohol intake: current substance use type: does not use ROS <TRUONG Orozco - Last Filed: 10/05/23 13:18> ROS ED ROS Narrative Constitutional: Negative for fever, chills, weight loss, weakness Eyes: Negative for vision loss, vision change, double vision ENT: Negative for any sore throat, ear pain, congestion Cardiovascular: Negative for any chest pain, tightness, palpitations Respiratory: Negative for any cough, sputum production, hemoptysis, dyspnea, dyspnea on exertion, orthopnea Gastrointestinal: Negative for any a constipation, blood in vomit. Positive for blood in stool patient positive for abdominal pain, nausea and vomiting, diarrhea : Negative for any urinary frequency, dysuria, retention, blood in urine Muscle skeletal: Negative for any myalgias, arthralgias, neck pain, back pain Neurological: Negative for any headache, syncope, numbness or tingling, dizziness Skin: Negative for any rashes, lumps, itching, abrasions, lacerations Psychiatric: Negative for any depression, anxiety, stress, suicidal ideation, homicidal ideation Hematologic: Negative for any easy bruising, excessive bruising, easy bleeding Allergies: Negative for any eczema, hives, rash EXAM <TRUONG Orozco - Last Filed: 10/05/23 13:18> Physical Exam Narrative Exam Narrative: Vital signs reviewed. HEET: Head normocephalic atraumatic, TMs clear bilaterally. Posterior pharynx is clear, moist mucous membranes. Nares clear bilaterally. Neck: Supple with no lymphadenopathy or tenderness. No signs of meningismus. Cardiac: Regular rate and rhythm no murmurs gallops or rubs, equal peripheral pulses bilaterally. Respiratory: Lungs clear to auscultation bilaterally. No chest tenderness. Abdomen: Soft,nondistended. No abdominal bruit or pulsatile masses. No hepatosplenomegaly. Patient has tenderness to the lower abdomen to the suprapubic area that goes to the left lower abdomen. No peritoneal signs. Active bowel sounds. Extremities: No peripheral edema, no signs of gross trauma or deformity. Active full range of motion of all extremities. Neuro: Cranial nerves II through XII intact, no focal neurological deficits. Skin: Clean dry and intact with no rash, purpura, petechiae, vesicles or pustules. Backs/flank: No CVA tenderness, no midline spinal tenderness, no deformity. Psych: Normal mood and affect. No SI, HI or acute psychosis. Rectal: Rectal exam completed with female nurse retail cashier associate Inessa GONSALES. Patient had a chronic hemorrhoid, there is no active blood around the anus, there is no dried blood. Rectal vault was empty, light brown residue my finger. No masses felt. No signs of hemorrhage Const Vital Signs: 10/05/23 11:08 Temperature 98 F Temperature Source Temporal Pulse Rate 79 Respiratory Rate 14 Blood Pressure 115/72 Blood Pressure Mean 86 Pulse Ox 100 Oxygen Delivery Method Room Air Positive well nourished and well developed General Appearance ED: well developed <Dr. Chino Morris DO - Last Filed: 10/05/23 11:35> Physical Exam Const Vital Signs: 10/05/23 11:08 Temperature 98 F Temperature Source Temporal Pulse Rate 79 Respiratory Rate 14 Blood Pressure 115/72 Blood Pressure Mean 86 Pulse Ox 100 Oxygen Delivery Method Room Air MDM <TRUONG Orozco - Last Filed: 10/05/23 13:18> MDM Lab Data Labs: Laboratory Results - last 24 hr 10/05/23 10/05/23 11:35 12:11 WBC 9.1 RBC 4.44 Hgb 13.8 Hct 40.4 MCV 91.0 MCH 31.1 MCHC 34.2 RDW Std Deviation 41.6 RDW Coeff of Duy 12.6 Plt Count 286 MPV 9.8 Immature Gran % (Auto) 0.200 Neut % (Auto) 57.5 Lymph % (Auto) 29.2 Coryell % (Auto) 6.1 Eos % (Auto) 6.1 H Baso % (Auto) 0.9 Absolute Neuts (auto) 5.2 Absolute Lymphs (auto) 2.65 Nucleated RBC % 0 Sodium 137 Potassium 4.0 Chloride 106 Carbon Dioxide 26.0 Anion Gap 5 BUN 15 Creatinine 0.78 Estim Creat Clear Calc 83.27 Est GFR (MDRD) Af Amer 109 Est GFR (MDRD) Non-Af 90 BUN/Creatinine Ratio 19.4 Glucose 91 Calcium 8.6 Total Bilirubin 0.40 AST 18 ALT 13 Alkaline Phosphatase 68 Total Protein 7.6 Albumin 3.8 Globulin 3.8 Albumin/Globulin Ratio 1.0 Lipase 36 Urine Color Yellow Urine Clarity Clear Urine pH 6.0 Ur Specific Chauvin 1.015 Urine Protein Negative Urine Glucose (UA) Normal Urine Ketones Negative Urine Occult Blood Negative Urine Nitrite Negative Urine Bilirubin Negative Urine Urobilinogen Normal Ur Leukocyte Esterase Negative Urine RBC 0 SEEN Urine WBC 0 SEEN Ur Squamous Epith Cells 0-5 SEEN Urine Bacteria 0 SEEN Urine Mucus 0 SEEN Urine Test Negative Radiography Diagnostic Testing: Clinical Impression(s) from Imaging Studies Abdomen/Pelvis CT 10/05/23 11:25 IMPRESSION: No suspicious solid organ abnormality No free intraperitoneal fluid, air, or suspicious adenopathy. Normal appendix visualized Electronically Signed: Gennaro Kee MD at 12:33 EST Reading Location ID and State: [address] [place] [address] , Service support , Treatment and Re-Evaluation :: Patient appears generally well, patient appears nontoxic, vital signs are stable. Patient presents to the emergency department with complaints of generalized abdominal cramping, nausea vomiting with 1 episode of blood in stool. Differential diagnosis includes rectal mass, diverticulitis, viral gastroenteritis, gastritis. Patient's physical lamination was negative for any red flag signs. There is no rectal bleeding on my exam. Patient will receive a CT scan of the abdomen pelvis. Patient was given dicyclomine IM, Toradol, Zofran as well as 1 L of normal saline. On reevaluation, patient was in no distress. Patient did have relief of symptoms with medication. Patient CBC was unremarkable, hemoglobin is 13.8, patient's chemistries were unremarkable, lipase was negative. Patient's urinalysis was negative for any infection, patient's urine hCG was negative. Patient was positive for blood occult, this was microscopic. As I do not see any blood on my examination. Patient CT scan of the abdomen pelvis shows no suspicious solid organ abnormality, no free intraperitoneal fluid, air, or suspicious adenopathy, normal appendix visualized. At this time, patient will be discharged home, patient will need to follow-up outpatient with GI. Patient was given strict return precaution to return for worsening rectal bleeding, worsening abdominal pain. All questions were answered. Patient instructed to stop her ibuprofen that she is taking for her hip, she will also be giving a prescription for Bentyl. Patient is happy with the plan of care, patient stable for discharge <Dr. Chino Morris, DO - Last Filed: 10/05/23 11:35> [facility] MDM Narrative Medical decision making narrative: ED attending note: I evaluated the patient in conjunction with the LOUISE. I agree with his/her statements and above findings. I have personally performed a face to face assessment of the patient and have reviewed the LOUISE Note. I performed a substantive portion of the visit including all aspects of the following. I personally saw the patient performed chart review, physical exam, reviewed labs, imaging (if obtained), and formulated a treatment and management plan. Brief history: 33-year-old female here with abdominal pain, diarrhea concern for GI bleed Exam: Nursing triage notes reviewed, Vital signs reviewed Constitutional: please see mdm Lungs: Clear to auscultation, No wheezing or rales. No increased work of breathing, no conversational dyspnea, no accessory muscle use, no nasal flaring. No respiratory distress noted Heart: Regular rate and rhythm, No murmurs, No rubs and No gallops, 2+ distal pulses (radial, femoral, posterior tibial) in all extremities Abdomen: Soft, there is no tenderness, rigidity, rebound or guarding, no obvious peritoneal signs, no palpable pulsatile abdominal masses, no auscultated abdominal bruit : No CVAT Rectal: Performed by LOUISE Extremities: No edema Neuro: No focal neurological deficits, cranial nerves II through XII intact, 5/5 strength in all extremities. Intact sensation to light touch in all extremities, 2+ reflexes bilateral patella dens. Normal gait. No ataxia. MDM/plan: Chief Complaint: Abdominal pain, diarrhea concern for GI bleed External records reviewed: Imaging studies reviewed: No recent advanced imaging of the abdomen or pelvis Factors affecting care: Migraine, COVID-19 Social determinants of health: None History obtained from others: None Consults: None at this time [facility] narrative: Patient was initially hemodynamically stable, afebrile, nontoxic-appearing. Abdominal exam is benign. Rectal exam showed no active bleeding. I considered the following differential diagnosis: Dehydration, anemia, pancreatitis, hepatobiliary instruction, GI bleed We will obtain a broad lab work-up, give fluids, obtain a CT scan abdomen pelvis, to rule out a life-limiting etiologies. Shared decision making: I will have a discussion with the patient and or visitors regarding risk/benefits of further testing or admission. They will be made aware of of the risk/benefits inherent in this decision they will be given the opportunity to voice understanding. Lab Data Labs: Laboratory Results - last 24 hr 10/05/23 10/05/23 11:35 12:11 WBC 9.1 RBC 4.44 Hgb 13.8 Hct 40.4 MCV 91.0 MCH 31.1 MCHC 34.2 RDW Std Deviation 41.6 RDW Coeff of Duy 12.6 Plt Count 286 MPV 9.8 Immature Gran % (Auto) 0.200 Neut % (Auto) 57.5 Lymph % (Auto) 29.2 Coryell % (Auto) 6.1 Eos % (Auto) 6.1 H Baso % (Auto) 0.9 Absolute Neuts (auto) 5.2 Absolute Lymphs (auto) 2.65 Nucleated RBC % 0 Sodium 137 Potassium 4.0 Chloride 106 Carbon Dioxide 26.0 Anion Gap 5 BUN 15 Creatinine 0.78 Estim Creat Clear Calc 83.27 Est GFR (MDRD) Af Amer 109 Est GFR (MDRD) Non-Af 90 BUN/Creatinine Ratio 19.4 Glucose 91 Calcium 8.6 Total Bilirubin 0.40 AST 18 ALT 13 Alkaline Phosphatase 68 Total Protein 7.6 Albumin 3.8 Globulin 3.8 Albumin/Globulin Ratio 1.0 Lipase 36 Urine Color Yellow Urine Clarity Clear Urine pH 6.0 Ur Specific Chauvin 1.015 Urine Protein Negative Urine Glucose (UA) Normal Urine Ketones Negative Urine Occult Blood Negative Urine Nitrite Negative Urine Bilirubin Negative Urine Urobilinogen Normal Ur Leukocyte Esterase Negative Urine RBC 0 SEEN Urine WBC 0 SEEN Ur Squamous Epith Cells 0-5 SEEN Urine Bacteria 0 SEEN Urine Mucus 0 SEEN Urine Test Negative Radiography Diagnostic Testing: Clinical Impression(s) from Imaging Studies Abdomen/Pelvis CT 10/05/23 11:25 IMPRESSION: No suspicious solid organ abnormality No free intraperitoneal fluid, air, or suspicious adenopathy. Normal appendix visualized Electronically Signed: Gennaro Kee MD at 12:33 EST , Discharge Plan Triage Chief Complaint: GI Bleed ED Midlevel Provider: [place] Eli ED Provider: Chino Morris Dx/Rx/DC Orders Clinical Impression: Blood in stool, Abdominal pain Instructions: Abdominal Pain Prescriptions: New dicyclomine 20 mg tablet 20 mg PO TID Qty: 30 0RF No Action fluoxetine 40 mg capsule 40 mg PO DAILY Patient Comments: take 1 capsule by mouth once daily tizanidine [Zanaflex] 4 mg capsule 4 mg PO Q8H PRN (Reason: muscle spasticity) Qty: 14 0RF prednisone 10 mg tablet 40 mg PO DAILY 2 Days Qty: 8 0RF ondansetron 4 mg tablet,disintegrating 4 mg PO Q6H PRN (Reason: nausea and vomiting) Qty: 7 0RF Primary Care Provider: Fouzia Amezquita NP Referrals: Javier Beonit DO [Med Staff - Active Staff] - Fouzia Amezquita METAL ENGRAVER, METAL ENGRAVER-C [Primary Care Provider] - Activity Restrictions/Additional Instructions: Please stop your ibuprofen, use Tylenol for pain. Please follow-up with GI. Return for any worsening symptoms Disposition Disposition: Home, Self Care
[2023-10-05 11:42] LABS: Absolute Lymphocyte Count 2.65 X10^3/uL (0.83-4.51); Absolute Neutrophil Count 5.2 X10^3/uL (2.0-7.7); Basophil# 0.08 X10^3/uL; Basophil% 0.9 % (0-1); Eosinophil# 0.55 X10^3/uL; Eosinophils% 6.1 % (0-5); Hematocrit 40.4 % (37-47); Hemoglobin 13.8 g/dL (12.0-15.0); Lymphocyte # 2.65 X10^3/ul (0.83-4.51); Lymphocyte % 29.2 % (19-41); Mean Corp Hgb Conc 34.2 g/dL (32-36); Mean Corpuscular Hgb 31.1 pg (27.0-32.0); Mean Platelet Vol. 9.8 fl (6.2-12.0); Monocyte# 0.55 X10^3/uL; Monocyte% 6.1 % (0-10); NRBC Flagged by Analyzer 0 % (0-5); Neutrophil # 5.21 X10^3/uL (2.7-7.7); Neutrophil % 57.5 % (47-70); Platelet Count 286 K/mm3 (150-450); RBC Distribution Width CV 12.6 % (11.6-14.6); RBC Distribution Width SD 41.6 fl (35.1-43.9); Red Blood Count 4.44 M/mm3 (4.2-5.4); White Blood Count 9.1 K/mm3 (4.4-11.0)
[2023-10-05] MEDS: 0.9% Normal Saline (1000mL) 1,000 ML 1000 ML IV (11:42)
[2023-10-05] MEDS: Ketorolac 15 MG/ML Vial IV (11:42)
[2023-10-05] MEDS: Ondansetron 4 MG/2 ML Vial IV (11:43)
[2023-10-05] MEDS: Dicyclomine 20 MG/2 ML Vial IM (11:43)
[2023-10-05 11:59] LABS: AST(SGOT) 18 U/L (15-37); Alanine Aminotransfer ALT/SGPT 13 U/L (13-56); Albumin, Serum 3.8 g/dL (3.2-5.0); Alkaline Phosphatase 68 U/L (45-117); Anion Gap 5 (5-15); BUN 15 mg/dL (7-18); BUN/Creat Ratio 19.4 RATIO (10-20); Calcium,Total 8.6 mg/dL (8.5-10.1); Chloride 106 mmol/L (98-107); Creatinine, Serum 0.78 mg/dL (0.55-1.02); EST Glomerular Filtration Rate 90 mL/min (>60); Est Glom Filt Rate - Afr Amer 109 mL/min (>60); Estimated Creatinine Clearance 83.27 ml/min; Globulin 3.8 g/dL (2.2-4.2); Glucose 91 mg/dL (74-106); Lipase 36 U/L (13-75); Protein, Total 7.6 g/dL (6.4-8.2); Sodium Level 137 mmol/L (136-145)
[2023-10-05 12:18] LABS: Bacteria 0 SEEN /hpf (None Seen); Mucous, Urine 0 SEEN /hpf (<or=2+); Red Blood Cells-Urine 0 SEEN /hpf (0-5); White Blood Cells 0 SEEN /hpf (0-5)
[2023-10-05 12:21] LABS: Color, Urine Yellow (Yellow); Glucose, Dipstick Normal (Normal); Ketone-Dipstick Negative (Negative); Leukocyte Esterase-Dipstick Negative /ul (Negative); Nitrite-Dipstick Negative (Negative); Occult Blood-Urine Negative /ul (Negative); Protein-Dipstick Negative (Negative); Specific Gravity, Urine 1.015 (1.002-1.030); Urine Bilirubin Dipstick Negative (Negative); Urine Clarity Clear (Clear); Urine Urobilinogen Normal (Normal)
[2023-10-05 12:22] LABS: Internal QC Validated? YES +Cl - CLEAR BKGD; Pregnancy, Urine Negative Negative
[2023-10-05 12:26] LABS: Squamous Epithelial Cells - UA 0-5 SEEN /hpf (5-10)
[2023-10-05 13:24] VITALS: BP 128/78; PULSE 68; RESP 16
== END 2023-10-05 13:25 | disposition home or self-care (01) ==
PROVIDERS: Nurse Practitioner; Emergency Provider Emergency Medicine; PCP Clinical Nurse Specialist; Visit Provider Emergency Medicine
DX: K92.1 Melena (principal); F31.9 Bipolar disorder, unspecified; R19.7 Diarrhea, unspecified; R10.84 Generalized abdominal pain; Z79.899 Other long term (current) drug therapy; K64.9 Unspecified hemorrhoids
CPT/HCPCS: 74177; 80053; 81001; 81025; 82274; 83690; 85025; 96361; 96372; 96374; 96375; 99283; J7030; Q9967; A4216; J2405

== ENCOUNTER → 2023-11-10 | Outpatient (CLI) | payer OTHER, SELFPAY ==
[2023-11-10 09:06] LABS: Absolute Lymphocyte Count 2.79 X10^3/uL (0.83-4.51); Absolute Neutrophil Count 4.5 X10^3/uL (2.0-7.7); Basophil# 0.07 X10^3/uL; Basophil% 0.8 % (0-1); Eosinophil# 0.42 X10^3/uL; Hematocrit 42.4 % (37-47); Hemoglobin 14.2 g/dL (12.0-15.0); Lymphocyte # 2.79 X10^3/ul (0.83-4.51); Lymphocyte % 33.2 % (19-41); Mean Corp Hgb Conc 33.5 g/dL (32-36); Mean Corpuscular Hgb 30.9 pg (27.0-32.0); Mean Corpuscular Volume 92.2 fL (81-99); Mean Platelet Vol. 10.1 fl (6.2-12.0); Monocyte% 7.1 % (0-10); NRBC Flagged by Analyzer 0 % (0-5); Neutrophil % 53.5 % (47-70); Platelet Count 298 K/mm3 (150-450); RBC Distribution Width CV 12.6 % (11.6-14.6); RBC Distribution Width SD 42.3 fl (35.1-43.9); RET-HE 32.4 pg (30-35); Reticulocyte Count 1.45 % (0.5-1.5); White Blood Count 8.4 K/mm3 (4.4-11.0)
[2023-11-10 09:32] LABS: Vitamin B12 460 pg/mL (211-911)
[2023-11-10 09:41] LABS: AST(SGOT) 14 U/L (15-37); Alanine Aminotransfer ALT/SGPT 12 U/L (13-56); Albumin, Serum 3.6 g/dL (3.2-5.0); Alkaline Phosphatase 64 U/L (45-117); Anion Gap 3 (5-15); BUN 12 mg/dL (7-18); BUN/Creat Ratio 14.9 RATIO (10-20); CRP 3.16 mg/L (0.0-3.0); Chloride 109 mmol/L (98-107); EST Glomerular Filtration Rate 86 mL/min (>60); Est Glom Filt Rate - Afr Amer 104 mL/min (>60); Ferritin 72 ng/mL (8-252); Free T3 2.1 pg/mL (2.18-3.98); Globulin 3.7 g/dL (2.2-4.2); Glucose 101 mg/dL (74-106); Iron 54 ug/dL (50-170); Iron Binding Capacity,Total 297 ug/dL (250-450); LDH 200 U/L (84-246); Luteinizing Hormone 10.4 mIU/mL; Potassium 3.9 mmol/L (3.5-5.1); Protein, Total 7.3 g/dL (6.4-8.2); Sodium Level 138 mmol/L (136-145); Thyroid Stim Hormone (TSH) 2.67 uIU/mL (0.358-3.74); Triglycerides 50 mg/dL
[2023-11-11 08:28] LABS: Erythrocyte Sedimentation Rate 12 mm/hr (0-30)
[2023-11-12 13:07] LABS: Anti-Centromere B Ab <0.2 AI (0.0-0.9); Anti-Chromatin <0.2 AI (0.0-0.9); Anti-Jo <0.2 AI (0.0-0.9); Anti-Scleroderma-70 AB 6.8 AI (0.0-0.9); Anti-dsDNA Ab 2 IU/mL (0-9); Beef <0.10 kU/L (Class 0); Chocolate <0.10 kU/L (Class 0); Codfish <0.10 kU/L (Class 0); Corn <0.10 kU/L (Class 0); Egg, Whole <0.10 kU/L (Class 0); Milk (Cow) <0.10 kU/L (Class 0); Mussels <0.10 kU/L (Class 0); Peanut <0.10 kU/L (Class 0); Pork <0.10 kU/L (Class 0); RNP Ab <0.2 AI (0.0-0.9); SJOGREN'S Anti-SS-A test < 0.2 AI (0.0-0.9); SJOGREN'S Anti-SS-B test < 0.2 AI (0.0-0.9); Salmon <0.10 kU/L (Class 0); Shrimp <0.10 kU/L (Class 0); Smith Ab <0.2 AI (0.0-0.9); Soybean <0.10 kU/L (Class 0); Tuna <0.10 kU/L (Class 0); Vitamin D 1,25-Dihydroxy 39.4 pg/mL (24.8-81.5); Wheat <0.10 kU/L (Class 0)
[2023-11-13 15:08] LABS: Albumin 4.1 g/dL (2.9-4.4); Alpha-1-Globulins 0.2 g/dL (0.0-0.4); Alpha-2-Globulins 0.7 g/dL (0.4-1.0); Anti-Smooth Muscle ABS 11 Units (0-19); Chromogranin A 43.5 ng/mL (0.0-101.8); Cytoplasmic Ab (C-ANCA) <1:20 titer (Neg:<1:20); Endomysial Antibody IgA Negative (Negative); Gamma Globulin 1.1 g/dL (0.4-1.8); Gastrin, Serum 29 pg/mL (0-115); HEPATITIS B SURFACE AG Negative (Negative); Haptoglobin 163 mg/dL (33-278); Hep C Antibodies Non Reactive (Non Reactive); Hepatitis A IgM Antibody Negative (Negative); Hepatitis B Core AB IgM Negative (Negative); IgG, Quant 1092 mg/dL (586-1602); Immunoglobulin A 115 mg/dL (87-352); Immunoglobulin E 5 IU/mL (6-495); Immunoglobulin G, Subclass 1 554 mg/dL (248-810); Immunoglobulin G, Subclass 2 290 mg/dL (130-555); Immunoglobulin G, Subclass 3 83 mg/dL (15-102); Immunoglobulin G, Subclass 4 27 mg/dL (2-96); Immunoglobulin M 178 mg/dL (26-217); PROEL- TOTAL PROTEIN 7.1 g/dL (6.0-8.5); Perinuclear Ab (P-ANCA) <1:20 titer (Neg:<1:20); t-Transglutaminase IgA <2 U/mL (0-3)
== END | disposition home or self-care (01) ==
PROVIDERS: PCP Clinical Nurse Specialist; Referring Provider Internal Medicine Gastroenterology; Visit Provider Internal Medicine Gastroenterology
DX: K92.2 Gastrointestinal hemorrhage, unspecified (principal)
CPT/HCPCS: 36415; 80053; 80074; 82607; 82652; 82728; 82784; 82785; 82787; 82941; 83001; 83002; 83010; 83516; 83540; 83550; 83615; 84165; 84443; 84478; 84481; 85025; 85045; 85652; 86003; 86005; 86140; 86225; 86235; 86255; 86256; 86316; 86334

== ENCOUNTER → 2023-11-12 | Outpatient (CLI) | payer OTHER, SELFPAY ==
[2023-11-18 13:07] LABS: Giardia Lamblia, Stool EIA Negative (Negative); Pancreatic Elastase, Fecal 288 (>200)
[2023-11-20 17:07] LABS: Calprotectin, Stool 578 ug/g (0-120)
== END | disposition home or self-care (01) ==
LOC: LABSPEC 10:31
PROVIDERS: PCP Internal Medicine; Referring Provider Internal Medicine Gastroenterology; Visit Provider Internal Medicine Gastroenterology
DX: K58.9 Irritable bowel syndrome, unspecified (principal); K92.2 Gastrointestinal hemorrhage, unspecified
CPT/HCPCS: 82653; 83630; 83993; 87329

== ENCOUNTER 2023-11-23 07:51 | Day surgery (SDC) | payer OTHER, SELFPAY ==
[2023-11-23] VITALS (7 sets, daily range): BP systolic 92–107; BP diastolic 50–66; PULSE 59–69; RESP 14–16; TEMP 36.3–36.8; O2SAT 94–97; BMI 31.0
--- NOTE | 2023-11-23 | GASB_PTH ---
PATHOLOGY RESULTS PATIENT: CARLOS SAN LOC: EN U#:[id number] AGE/SX: 33/F ROOM: RE11/23/[address]: Dr. Javier Benoit DO : 1990 BED: DIS: 11/23/2023 SPEC #: [id number] RECD: 11/23/23 13:06 STATUS: LILIANA ALEGRIA #: [id number] SANTOS: 11/23/23 00:[address]: Javier Benoit DEPT: SURGICAL PATHOLOGY RECD BY: Harry Pillai ENTERED: 11/23/23 13:06 SP TYPE: Gastric Bx OTHR DR: Dr. Louann Dolan MD Tissues: Duodenum, NOS Gastric mucous membrane Procedures: Surgery Specimen Level IV HEADER OPERATION: EGD with biopsy PRE-OP DIAGNOSIS: GI bleeding, nausea and vomiting TISSUE SUBMITTED: A - Duodenum biopsy, B - Gastric antrum biopsy MICROSCOPIC DIAGNOSIS A. Duodenum, biopsy: Fragments of duodenal mucosa, no pathologic diagnosis. B. Gastric antrum, biopsy: Mild gastritis. See microscopic description and comment. KOURTNEY:minoo 11/24/2023 COMMENT B. The results of immunohistochemistry for Helicobacter pylori will be reported separately ([id number]). MICROSCOPIC DESCRIPTION Slides are reviewed. B. The specimen shows fragments of gastric mucosa with chronic inflammatory cell infiltrates in the lamina propria consisting of lymphocytes and plasma cells, consistent with mild chronic gastritis. GROSS DESCRIPTION A - Received in fixative is one container labeled with the patient's name and designated duodenum biopsy. The specimen consists of two irregular fragments of light pedroza soft tissue that in aggregate measure 0.6 x 0.3 x 0.1 cm. The specimen is totally submitted in one cassette. B - Received in fixative is one container labeled with the patient's name and designated gastric antrum biopsy. The specimen consists of two irregular fragments of light pedroza soft tissue that in aggregate measure 0.6 x 0.3 x 0.1 cm. The specimen is totally submitted in one cassette. / KOURNTEY:minoo 11/23/2023 TC:3 CPT: 04787 x2
--- OUTSIDE RECORDS SUMMARY | 2023-11-23 08:19 | XMS RPT_ITS | CCD ---
Author Name Unknown Address [id number] [place] [address] Organization [facility] Care Team Providers Care Federal Law Clerk Name Role Phone Brad Dolan MD Primary Care Provider TALAMPAS, BRAD D Primary Care Unavailable TALAMPAS, BRAD D Primary Care Unavailable TALAMPAS, BRAD D Primary Care Unavailable TALAMPAS, BRAD D Primary Care Unavailable FOUZIA AMEZQUITA Referring Unavailable TALAMPAS, BRAD D Primary Care Unavailable TALAMPAS, BRAD D Attending Unavailable ISSA BHATTI Referring Unavailable TALAMPAS, BRAD D Primary Care Unavailable TALAMPAS, BRAD D Primary Care Unavailable ISSA BHATTI Attending Unavailable TALAMPAS, BRAD D Referring Unavailable TALAMPAS, BRAD D Primary Care Unavailable TALAMPAS, BRAD D Primary Care Unavailable TALAMPAS, BRAD D Primary Care Unavailable AVRIL RHOADES Referring Unavailable Allergies Allergy Classification Reported Allergen(s) Allergy Type Date of Onset Reaction(s) Facility (20 sources) SUMAtriptan; Translations: [SUMATRIPTAN] Drug Allergy 10-04-2019 [facility] Medications Current Medications Medication Drug Class(es) Dates Sig (Normalized) Sig (Original) acetaminophen 325 mg oral tablet (2 sources) Start: 08-24-2023 End: 08-31-2023 take 325-650 mg by mouth every four hours as needed acetaminophen (TYLENOL) 325 mg tablet Take 1-2 tablets by mouth every 4 hours as needed for pain for up to 7 days. 30 tablet 0 08/24/2023 08/31/2023 Active Completed/Discontinued Medications Medication Drug Class(es) Dates Sig (Normalized) Sig (Original) cyclobenzaprine hydrochloride 10 mg oral tablet (1 source) Muscle Relaxant Start: 10-16-2021 End: 03-11-2022 take 1 tablet by mouth at bedtime as needed for muscle spasms cyclobenzaprine (FLEXERIL) 10 mg tablet Indications: Acute bilateral low back pain with right-sided sciatica Take 1 tablet by mouth at bedtime as needed for muscle spasm. 30 tablet 0 10/16/2021 03/11/2022 Discontinued Problems Problem Classification Problem Date Documented Date Episodic/Chronic Anxiety disorders (4 sources) Anxiety; Translations: [Anxiety disorder, unspecified] Onset: 11-07-2022 Chronic Conditions associated with dizziness or vertigo (2 sources) Dizziness; Translations: [Dizziness and giddiness] Onset: 09-28-2023 09-28-2023 Episodic Genitourinary symptoms and ill-defined conditions (1 source) Increased frequency of urination; Translations: [Frequency of micturition] Episodic Immunizations and screening for infectious disease (7 sources) Patient encounter status; Translations: [Encounter for screening for human immunodeficiency virus [HIV]] Episodic Inflammatory diseases of female pelvic organs (1 source) Bacterial vaginosis; Translations: [Acute vaginitis] Episodic Menstrual disorders (2 sources) Missed period; Translations: [Irregular menstruation, unspecified] Onset: 11-07-2022 Chronic Mood disorders (1 source) Mood disorders; Translations: [Anxiety and depression] Onset: 11-07-2022 Nausea and vomiting (3 sources) Nausea and vomiting; Translations: [Nausea with vomiting, unspecified] Episodic Other aftercare (1 source) Encounter for therapeutic drug level monitoring; Translations: [Encounter for therapeutic drug monitoring] Onset: 09-28-2023 Episodic Other endocrine disorders (20 sources) Polycystic ovary; Translations: [Polycystic ovarian syndrome] Onset: 03-11-2022 Chronic Other female genital disorders (1 source) Vaginal discharge; Translations: [Other specified noninflammatory disorders of vagina] Episodic Other injuries and conditions due to external causes (1 source) Injury of left knee; Translations: [Unspecified injury of left lower leg, subsequent encounter] Episodic Other non-traumatic joint disorders (1 source) Bilateral wrist pain; Translations: [Pain in right wrist] Episodic Other non-traumatic joint disorders (1 source) Pain in left knee; Translations: [Pain in joint, lower leg] Episodic Other non-traumatic joint disorders (1 source) Pain in right hip joint; Translations: [Pain in right hip] 08-24-2023 Episodic Other non-traumatic joint disorders (1 source) Pain in right hip; Translations: [Pain of right hip] Onset: 08-24-2023 Episodic Other nutritional; endocrine; and metabolic disorders (1 source) Body mass index 30+ - obesity; Translations: [Obesity, unspecified] Chronic Other screening for suspected conditions (not mental disorders or infectious disease) (1 source) Cancer cervix screening status; Translations: [Encounter for screening for malignant neoplasm of cervix] Episodic Other upper respiratory infections (4 sources) Sore throat symptom; Translations: [Acute pharyngitis, unspecified] Episodic Residual codes; unclassified (1 source) Did not attend; Translations: [Procedure and treatment not carried out because of patient's decision for other reasons] Episodic Residual codes; unclassified (1 source) Flushing; Translations: [Hot flashes] Onset: 09-28-2023 Episodic Screening and history of mental health and substance abuse codes (1 source) H/O: manic depressive disorder; Translations: [Personal history of other mental and behavioral disorders] Episodic Spondylosis; intervertebral disc disorders; other back problems (4 sources) Chronic low back pain; Translations: [Lumbago with sciatica, right side] Episodic Results Test Name Value Interpretation Reference Range Facil ity Vital Signs Date Time Vital Sign Value Performing Clinician Jeffy carlin 09-28-2023 10:46-0500 Body temperature 97.11 [degF] Jarrett Carcamo MD Work Phone: [facility] 09-28-2023 10:46-0500 Body weight 77.29 kg Jarrett Carcamo MD Work Phone: [facility] 09-28-2023 10:46-0500 Diastolic blood pressure 72 mm[Hg] Jarrett Carcamo MD Work Phone: [facility] 09-28-2023 10:46-0500 Heart rate 62 /min Jarrett Carcamo MD Work Phone: [facility] 09-28-2023 10:46-0500 Respiratory rate 21 /min Jarrett Carcamo MD Work Phone: [facility] 09-28-2023 10:46-0500 SaO2% (BldA) [Mass fraction] 98 % Jarrett Carcamo MD Work Phone: [facility] 09-28-2023 10:46-0500 Systolic blood pressure 98 mm[Hg] Jarrett Carcamo MD Work Phone: [facility] 09-04-2023 10:03-0400 Body temperature 98.01 [degF] Amalia Gerard APRN.HEALTH ASSESSMENT AND TREATMENT TEACHER Work Phone: [facility] 09-04-2023 10:03-0400 Body weight 77.47 kg Amalia Gerard APRN.HEALTH ASSESSMENT AND TREATMENT TEACHER Work Phone: [facility] 09-04-2023 10:03-0400 Diastolic blood pressure 70 mm[Hg] Amalia Gerard APRN.HEALTH ASSESSMENT AND TREATMENT TEACHER Work Phone: [facility] 09-04-2023 10:03-0400 Heart rate 81 /min Amalia Gerard APRN.HEALTH ASSESSMENT AND TREATMENT TEACHER Work Phone: [facility] 09-04-2023 10:03-0400 Respiratory rate 18 /min Amalia Gerard APRN.HEALTH ASSESSMENT AND TREATMENT TEACHER Work Phone: [facility] 09-04-2023 10:03-0400 SaO2% (BldA) [Mass fraction] 97 % Amalia Gerard APRN.HEALTH ASSESSMENT AND TREATMENT TEACHER Work Phone: [facility] 09-04-2023 10:03-0400 Systolic blood pressure 104 mm[Hg] Amalia Gerard APRN.HEALTH ASSESSMENT AND TREATMENT TEACHER Work Phone: [facility] 08-24-2023 09:26-0400 Body temperature 96.91 [degF] Avril Rhoades APRN.HEALTH ASSESSMENT AND TREATMENT TEACHER Work Phone: [facility] 08-24-2023 09:26-0400 Body weight 78.47 kg Avril Rhoades APRN.HEALTH ASSESSMENT AND TREATMENT TEACHER Work Phone: [facility] 08-24-2023 09:26-0400 Diastolic blood pressure 72 mm[Hg] Avril Rhoades APRN.HEALTH ASSESSMENT AND TREATMENT TEACHER Work Phone: [facility] 08-24-2023 09:26-0400 Heart rate 88 /min Avril Pendlebury [employer].HEALTH ASSESSMENT AND TREATMENT TEACHER Work Phone: [facility] 08-24-2023 09:26-0400 Respiratory rate 16 /min Avril Pendlebury [employer].HEALTH ASSESSMENT AND TREATMENT TEACHER Work Phone: [facility] 08-24-2023 09:26-0400 SaO2% (BldA) [Mass fraction] 98 % Avril Pendduglasbury [employer].HEALTH ASSESSMENT AND TREATMENT TEACHER Work Phone: [facility] 08-24-2023 09:26-0400 Systolic blood pressure 126 mm[Hg] Avril Pendlebury [employer].HEALTH ASSESSMENT AND TREATMENT TEACHER Work Phone: [facility] 05-12-2023 07:15-0400 Body temperature 98.6 [degF] Isela Praisler-Wood [employer].HEALTH ASSESSMENT AND TREATMENT TEACHER Work Phone: [facility] 05-12-2023 07:15-0400 Body weight 79.38 kg Isela Praisler-Wood [employer].HEALTH ASSESSMENT AND TREATMENT TEACHER Work Phone: [facility] 05-12-2023 07:15-0400 Diastolic blood pressure 82 mm[Hg] Isela Praisler-Wood [employer].HEALTH ASSESSMENT AND TREATMENT TEACHER Work Phone: [facility] 05-12-2023 07:15-0400 Heart rate 76 /min Isela Praisler-Wood [employer].HEALTH ASSESSMENT AND TREATMENT TEACHER Work Phone: [facility] 05-12-2023 07:15-0400 Respiratory rate 16 /min Isela Praisler-Wood [employer].HEALTH ASSESSMENT AND TREATMENT TEACHER Work Phone: [facility] 05-12-2023 07:15-0400 SaO2% (BldA) [Mass fraction] 98 % Isela Praisler-Wood [employer].HEALTH ASSESSMENT AND TREATMENT TEACHER Work Phone: [facility] 05-12-2023 07:15-0400 Systolic blood pressure 118 mm[Hg] Isela Praisler-Wood [employer].HEALTH ASSESSMENT AND TREATMENT TEACHER Work Phone: [facility] 03-12-2023 16:05-0400 Body temperature 98.01 [degF] Chiara Donell [employer].HEALTH ASSESSMENT AND TREATMENT TEACHER Work Phone: [facility] 03-12-2023 16:05-0400 Body weight 77.66 kg Chiara Donell [employer].HEALTH ASSESSMENT AND TREATMENT TEACHER Work Phone: [facility] 03-12-2023 16:05-0400 Diastolic blood pressure 66 mm[Hg] Chiara Donell [employer].HEALTH ASSESSMENT AND TREATMENT TEACHER Work Phone: [facility] 03-12-2023 16:05-0400 Heart rate 101 /min Chiara Donell [employer].HEALTH ASSESSMENT AND TREATMENT TEACHER Work Phone: [facility] 03-12-2023 16:05-0400 Respiratory rate 18 /min Chiara Donell [employer].HEALTH ASSESSMENT AND TREATMENT TEACHER Work Phone: [facility] 03-12-2023 16:05-0400 SaO2% (BldA) [Mass fraction] 97 % Chiara Donell [employer].HEALTH ASSESSMENT AND TREATMENT TEACHER Work Phone: [facility] 03-12-2023 16:05-0400 Systolic blood pressure 122 mm[Hg] Chiara Donell [employer].HEALTH ASSESSMENT AND TREATMENT TEACHER Work Phone: [facility] 09-25-2022 10:37-0500 Body weight 82.56 kg Fouzia Amezquita [employer].CLINICAL PROJECT LEADER Work Phone: [facility] 09-25-2022 10:37-0500 Diastolic blood pressure 58 mm[Hg] Fouzia Amezquita [employer].CLINICAL PROJECT LEADER Work Phone: [facility] 09-25-2022 10:37-0500 Heart rate 65 /min Fouzia Amezquita [employer].CLINICAL PROJECT LEADER Work Phone: [facility] 09-25-2022 10:37-0500 SaO2% (BldA) [Mass fraction] 98 % Fouzia Amezquita [employer].CLINICAL PROJECT LEADER Work Phone: [facility] 09-25-2022 10:37-0500 Systolic blood pressure 94 mm[Hg] Fouzia Amezquita [employer].CLINICAL PROJECT LEADER Work Phone: [facility] 09-11-2022 09:14-0400 Body weight 81.65 kg Fouzia Amezquita [employer].CLINICAL PROJECT LEADER Work Phone: [facility] 09-11-2022 09:14-0400 Diastolic blood pressure 62 mm[Hg] Fouzia Amezquita [employer].CLINICAL PROJECT LEADER Work Phone: [facility] 09-11-2022 09:14-0400 Heart rate 68 /min Fouzia Amezquita [employer].CLINICAL PROJECT LEADER Work Phone: [facility] 09-11-2022 09:14-0400 Respiratory rate 16 /min Fouzia Amezquita [employer].CLINICAL PROJECT LEADER Work Phone: [facility] 09-11-2022 09:14-0400 SaO2% (BldA) [Mass fraction] 98 % Fouzia Amezquita [employer].CLINICAL PROJECT LEADER Work Phone: [facility] 09-11-2022 09:14-0400 Systolic blood pressure 94 mm[Hg] Fouzia Amezquita [employer].CLINICAL PROJECT LEADER Work Phone: [facility] 06-11-2022 10:49-0400 Body temperature 97.2 [degF] Jarrett Carcamo MD Work Phone: [facility] 06-11-2022 10:49-0400 Body weight 86.55 kg Jarrett Carcamo MD Work Phone: [facility] 06-11-2022 10:49-0400 Diastolic blood pressure 82 mm[Hg] Jarrett Carcamo MD Work Phone: [facility] 06-11-2022 10:49-0400 Heart rate 62 /min Jarrett Carcamo MD Work Phone: [facility] 06-11-2022 10:49-0400 Respiratory rate 16 /min Jarrett Carcamo MD Work Phone: [facility] 06-11-2022 10:49-0400 SaO2% (BldA) [Mass fraction] 97 % Jarrett Carcamo MD Work Phone: [facility] 06-11-2022 10:49-0400 Systolic blood pressure 120 mm[Hg] Jarrett Carcamo MD Work Phone: [facility] 03-13-2022 07:54-0400 Body height 160 cm Katelyn Hoff [employer].HEALTH ASSESSMENT AND TREATMENT TEACHER Work Phone: [facility] 03-13-2022 07:54-0400 Body weight 84.19 kg Katelyn Hoff [employer].HEALTH ASSESSMENT AND TREATMENT TEACHER Work Phone: [facility] 03-13-2022 07:54-0400 Diastolic blood pressure 60 mm[Hg] Katelyn Hoff [employer].HEALTH ASSESSMENT AND TREATMENT TEACHER Work Phone: [facility] 03-13-2022 07:54-0400 Systolic blood pressure 90 mm[Hg] Katelyn Hoff [employer].HEALTH ASSESSMENT AND TREATMENT TEACHER Work Phone: [facility] 03-11-2022 07:10-0400 Body height 161.9 cm Fouzia Amezquita [employer].CLINICAL PROJECT LEADER Work Phone: [facility] 03-11-2022 07:10-0400 Body weight 83.01 kg Fouzia Amezquita [employer].CLINICAL PROJECT LEADER Work Phone: [facility] 03-11-2022 07:10-0400 Diastolic blood pressure 72 mm[Hg] Fouzia Amezquita [employer].CLINICAL PROJECT LEADER Work Phone: [facility] 03-11-2022 07:10-0400 Heart rate 68 /min Fouzia Amezquita [employer].CLINICAL PROJECT LEADER Work Phone: [facility] 03-11-2022 07:10-0400 Respiratory rate 16 /min Fouzia Amezquita [employer].CLINICAL PROJECT LEADER Work Phone: [facility] 03-11-2022 07:10-0400 Systolic blood pressure 104 mm[Hg] Fouzia Amezquita [employer].CLINICAL PROJECT LEADER Work Phone: [facility] Encounters Encounter Date Encounter Type Care Provider Facility Start: 10-05-2023 ambulatory Brad salcedo MD Work Phone: [facility] Procedures Date Procedure Procedure Detail Performing Clinician Start: 03-12-2023 STREP A MOLECULAR (POC) Amalia Gerard APRN.HEALTH ASSESSMENT AND TREATMENT TEACHER Work Phone: Start: 06-11-2022 Urnls dip stick/tabl et rgnt auto w/o microscopy Hi João [employer].HEALTH ASSESSMENT AND TREATMENT TEACHER Work Phone: Start: 03-11-2022 Adult depression screening assessment Fouzia Amezquita [employer].CLINICAL PROJECT LEADER Work Phone: Plan of Treatment Date Care Activity Detail Author Start: 03-13-2027 HPV TESTING HPV TESTING [facility] Start: 03-13-2027 PAP TESTING PAP TESTING [facility] Start: 05-15-2024 Influenza vaccination Influenza Vacc ine (#1) [facility] Immunizations Immunization Date Immunization Notes Care Provider Fa cility 05-20-2021 COVID-19 vaccine (ABDI) Fouzia Amezquita [employer].CLINICAL PROJECT LEADER Work Phone: [facility] Work Phone: Payers Date Payer Category Payer Unknown [id number] 2021 Unknown [employer] PPO [id number] 2021-Present [phone] [address] [place] [address] PPO [id number] 2021 Unknown [id number] 2021 Unknown [facility] [id number] 2021-Present [phone] [address] [place] [address] PPO [id number] Social History Date Type Detail Facility Start: 10-16-2021 End: 09-11-2022 Tobacco smoking status NHIS Never smoked tobacco [facility] Start: 10-16-2021 End: 09-11-2022 Tobacco use and exposure Smokeless tobacco non-user [facility] Start: 1990 Sex Assigned At Not on file C [facility] Start: 03-01-2022 End: 09-25-2022 Exposure to SARS-CoV-2 (event) Not sure [facility] Work Phone: Start: 03-13-2022 End: 09-28-2023 Alcohol intake Current drinker of alcohol (finding) [facility] Start: 03-13-2022 History SDOH Alcohol Comment socially [facility] Start: 09-11-2022 End: 11-07-2022 History SDOH Alcohol Frequency 2 [facility] Start: 09-11-2022 End: 11-07-2022 History SDOH Alcohol Std Drinks 1 [facility] Start: 09-11-2022 End: 11-07-2022 History SDOH Social Connections [facility] 3 [facility] Start: 09-11-2022 History SDOH Social Connections Meetings 98 [facility] Start: 09-11-2022 End: 11-07-2022 History SDOH Physical Activity DPW 5 [facility] Start: 09-11-2022 History SDOH Physica l Activity MPS 0 [facility] Start: 11-07-2022 History SDOH Financial 4 [facility] Start: 11-07-2022 End: 12-13-2022 History of Social function [facility] Start: 11-07-2022 End: 12-13-2022 Social connection and isolation panel [facility] Do you belong to any clubs or organizations such as faith groups, unions, fraternal or athletic groups, or school groups? No [facility] Are you now , , , , never or living with a partner? [facility] How often to you hav e a drink containing alcohol? Monthly or less [facility] How many standard dr inks containing alcohol do you have on a typical day? 1 or 2 [facility] How often do you hav e 6 or more drinks on 1 occasion? Less than monthly [facility] How hard is it for y ou to pay for the very basics like food, housing, medical care, and heating Not very hard [facility] Adult Depression Scr eening Assessment 4 [facility] Do you feel stress - tense, restless, nervous, or anxious, or unable to sleep at night because your mind is troubled all the time - these days [OSQ] Very much [facility] (I/We) worried whefred er (my/our) food would run out before (I/we) got money to buy more. Never true [facility] Clinical Notes 03-11-2022 to 10-14-2023 Telephone Encounter - Arely Rodriguez RN - 10/14/2023 11:03 AM ESTTelephone Encounter - Angela Stephenson LPN - 10/14/2023 10:56 AM Jarrett Barger MD - 09/28/2023 10:57 AM EST Note Date & Type Note Facility 10-14-2023 Miscellaneous Notes Patient returns call and below message reviewed. Patient verbalizes understanding. Arely Rodriguez RN LEFT MESSAGE FOR PATIENT TO CALL OFFICE. The following approved medication requests have been transmitted electronically. Requested Prescriptions Signed Prescriptions Disp Refills promethazine (PHENERGAN) 25 mg tablet 12 tablet 0 Sig: Take 1 tablet by mouth every 6 hours as needed for nausea/vomiting. Authorizing Provider: BRAD DOLAN MD See if above more effective. Let her know can be more sedating than Zofrn. Noted will address 2 & [address] Benoit Pt notified of 's message below. Pt reports the followin) Zofran only works for 1 hr for nausea. Is there something else that can be prescribed. 2) Pt is scheduled with Dr. Benoit for 11/10 3) At ER on physical exam dr noted pt has a lump on the outside of rectum but nothing more was said about it. Pt is going to ask Dr. Benoit about it at appt. Marianna Delacruz LPN LEFT MESSAGE FOR PATIENT TO CALL OFFICE. Reviewed labs. Issa addressed already. Agree with Vitamin D supplement. Also noted that after the 09/30 telephone encounter, she had episode of rectal bleeding and went to ER as instructed by triage nurse. Reviewed ER evaluation. CT scan unremarkable. Blood counts were fine. Glucose was within normal limits. Ibuprofen that had been taking for hip pain routinely for a week was discontinued. She was referred to Dr. Benoit. Noted called to request work excuse 10/09 and Issa took care of that. Check on patient to see how she is doing. Hoping that stopping the ibuprofen helped with nausea and that rectal bleeding has resolved. See whether she was able to make appointment with Dr. Benoit (if any problems getting appointment due to his busy scheduled, if she is okay with going outside of [place] to [facility], can refer to GI in [facility] or [place], or other [facility] site that she prefers. With regards to the low glucose, if she was not symptomatic, note that women can usually tolerate a lower glucose than men. Also, body can make fuel when glucose is low (by burning up fat stores). If gets symptoms of low sugar between meals, needs to make sure to get enough protein whenever has meals, and also snacks should not be high carb snacks. Avoid high amounts of simple carb meals and snacks that can result in low sugars 1 to 2 hours after meal because pancreas releases too much insulin in response to the high carb meal. She should follow up if ongoing issues with nausea or trouble eating, or symptoms of low sugar, etc. Patient reviewed her lab results and provider's message. Asking why was her glucose 67 that day. Reports she ate breakfast and lunch that day and had labs drawn in the afternoon. Reports she has been weak lately, and nauseous, and she is not b/c she has taken 3 tests- all negative, and she had her period. Patient had nausea episode while talking on the phone to this nurse. Reports she had already taken zofran today, and cannot take it again until 11 am. Advised patient to try eating saltine cracker and / or sip on gingerale. Patient agreeable. Patient aware her vitamin D is low and plans to start taking supplement as advised. Please advise patient. documented in this encounter [facility] 10-05-2023 Miscellaneous Notes Patient call in for rectal bleeding. Patient has been having problems with dizziness. Patient reports having nausea and vomiting to day. Patient reports that she just went to restroom and had a bowel movment with a cup full of flood. Nurse Triage assessment completed with protocol recommending for disposition of Go to ED now. Care advice reviewed with patient, patient stated understanding. Reason for Disposition SEVERE rectal bleeding (large blood clots; constant or on and off bleeding) Answer Assessment - Initial Assessment Questions 1. APPEARANCE of BLOOD: Bright red, little stool mixed in 2. AMOUNT: Patient states a normal sized cup full of blood. 3. FREQUENCY: One time 4. ONSET: Just noticed it today 5. DIARRHEA: Yes, 3 in past 24 hours. 6. CONSTIPATION: Denies constipation 7. RECURRENT SYMPTOMS: Denies ever having blood in stool before 8. BLOOD THINNERS: Not on blood thinners 9. OTHER SYMPTOMS: Nausea and Vomiting; Abdominal pain rating 7 out of 10, sharp pain; Has been getting dizzy. Protocols used: Rectal [id number] documented in this encounter [facility] 09-28-2023 Note HNO ID: [id number] Author: Issa Bhatti APRN.HEALTH ASSESSMENT AND TREATMENT TEACHER Service: ? Author Type: Nurse Practitioner Type: Progress Notes Filed: 09/28/2023 4:38 PM Note Text: SUBJECTIVE Jordyn Araujo is a 33 year old female here today for acute concern. Chief Complaint Patient presents with: Same Day Appointment HPI Jordyn Araujo is a 33 year old female. She was seen in earlier today and brought up concerns of dizziness and was advised to follow up with her PCP. Issues with dizziness over the last 2 months. Gets a hot flash, dizzy, light headed, nausea, maybe vomiting. 2-4 times a day. No feelings of passing out or that she might pass out. Appetite decreased some. Has migraines but not any worse. No new medicines. Menstrual cycles are regular for her, just ended. No possibility of . Not sleeping great. Maybe 4 hours. Wakes and tosses and turns. Cannot take seroquel when she has to work the next day. Her medications were reviewed today and her list is now up to date. Medications Current Outpatient Medications Medication Sig ibuprofen (MOTRIN) 600 mg tablet Take 1 tablet by mouth every 6 hours as needed for pain. ondansetron orally disintegrating (ZOFRAN ODT) 4 mg disintegrating tablet Take 1 tablet by mouth every 6 hours as needed for nausea/vomiting. QUEtiapine (SEROQUEL) 25 mg tablet Take 1 tablet by mouth daily at bedtime. twice a week FLUoxetine (PROZAC) 40 mg capsule Take 1 capsule by mouth once daily. No current facility-administered medications for this visit. ALLERGIES Allergen Reactions Sumatriptan Hives ACTIVE PROBLEM LIST Polycystic Ovaries - 03/11/2022 Social History Tobacco Use Smoking status: Never Smokeless tobacco: Never Vaping Use Vaping Use: Never used Substance Use Topics Alcohol use: Yes Comment: socially Drug use: Not Currently Review of Systems Respiratory: Negative. Cardiovascular: Negative. Neurological: Positive for dizziness, light-headedness and headaches. Negative for tremors, seizures, syncope, facial asymmetry, speech difficulty, weakness and numbness. OBJECTIVE BP 102/68 Pulse 96 Temp 97.6 Resp 18 Wt 170 lb (77.1kg) SpO2 97% [facility] 09/26/2023 Physical Exam Vitals and nursing note reviewed. Constitutional: General: She is awake. She is not in acute distress. Appearance: Normal appearance. She is well-developed and well-groomed. She is not ill-appearing, toxic-appearing or diaphoretic. HENT: Head: Normocephalic. Right Ear: External ear normal. Left Ear: External ear normal. Nose: Nose normal. Eyes: General: Vision grossly intact. Conjunctiva/sclera: Conjunctivae normal. Pupils: Pupils are equal, round, and reactive to light. Neck: Vascular: No JVD. Trachea: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 information from multiple sources, and as a consequence, information in this document may materially change the coding, format and clinical context of patient data. In addition, data may be omitted in some cases. CLINICAL DECISIONS SHOULD BE BASED ON THE PRIMARY CLINICAL RECORDS. [facility] [employer] [facility]. provides no warranty or guarantee of the accuracy or completeness of information in this document.
[2023-11-23 08:34] LABS: Internal QC Validated? YES +Cl - CLEAR BKGD; Pregnancy, Urine Negative Negative; Record Kit Lot#,Urine Preg HCG0000667200
[2023-11-23] MEDS: Lactated Ringers 1,000 ML 15 ML IV (08:41)
--- NOTE | 2023-11-23 08:51 | PCM.HP.BLA ---
History and Physical Date of Admission: 11/23/23 33 F who presents to the office today for follow up. PMH migraines, bipolar disorder.? [facility] ED 10.05.23 with abdominal cramping/pain, N/V with single BM of blood; use of ibuprofen 600mg BID for right hip strain. No acute finding and discharged with dicyclomine.?Biochemical?CBC, CMP, lipase without pertinent abnormality?CT abd/pel IV only?small umbilical hernia. No acute/chronic finding.? OV 11.10.23- Pt reports she is still having daily abdominal pain that is worse with eating. Has been constipated. Having a hard BM every few days. Has seen blood only a handful of time since the ER visit. Nausea is controlled. Has not had any GI issues prior and has not had any major surgeries. ? ROS Const Constitutional: No anorexia, fatigue, fever(s), weight change or sleep problems Eyes Eyes: No change in vision ENT ENT: No abnormal hearing, difficulty swallowing, mouth lesions, tongue swelling or throat swelling Resp Respiratory: No cough or shortness of breath Cardio Cardiology: No chest pain at rest, chest pain with exertion, shortness of breath or dyspnea on exertion Gastro GI: No difficulty swallowing Genitourinary-Female: No difficulty urinating or burning urination Musc Musculoskeletal: No joint pain, joint swelling, muscle weakness or decreased muscle mass Skin Skin: No hair loss in leg, yellowing of the eye, itchy eyes, rash, skin ulcer or skin swelling Neuro Neurology: No abnormal hearing, abnormal movements, confusion, unsteady gait/balance or memory loss Psych Psychiatric: No anxiety, No confusion and No memory loss Endo Endocrine: No fatigue or weight change Aller/Imm Allergy/Immunologic: No itchy eyes, throat swelling or tongue swelling Marlo/Lymp Hematologic/Lymphatic: No easy bleeding, easy bruising or enlarged lymph nodes Exam Const General: cooperative and comfortable Nutritional Appearance: average body habitus and well nourished [facility] Head: normal to inspection Ears: hearing grossly normal bilaterally Nose: external nose normal Face and sinus: normal facial exam Mouth: oral mucosae normal Throat: posterior oropharynx normal Eyes General: appearance normal, both eyes and all related structures Neck Neck: normal visual inspection Chest Chest palpation & inspection: normal inspection of the chest and normal palpation of entire chest wall Resp Effort & Inspection: normal respiratory effort Auscultation: Bilateral: Clear to Auscultation Cardio Palpation: normal PMI Rate: regular rate Rhythm: regular rhythm GI Inspection: normal to inspection Auscultation: normal bowel sounds Percussion: normal to percussion Palpation: no hepatosplenomegaly Skin General: no rashes or lesions noted Neuro General: patient alert Extrem General: normal to inspection Psych Affect: normal affect Quality Reporting Tobacco Screening ([facility]) Smoking Status: Unknown if ever smoked Assessment and Plan Assessment and Plan (1) GI bleeding: Status: Acute Qualifiers: GI bleed type/associated pathology: unspecified gastrointestinal hemorrhage type Qualified Code(s): K92.2 - Gastrointestinal hemorrhage, unspecified (2) Nausea & vomiting: Status: Acute Qualifiers: Vomiting type: unspecified Qualified Code(s): R11.2 - Nausea with vomiting, unspecified Plan: 33-year-old with past medical history of migraine disorder presents with acute on chronic nausea vomiting associated with abdominal pain and lower GI bleeding. She does take ibuprofen to 3 times a day for uncontrolled migraine disorder. She also has a history of lower GI bleeding which presented to the emergency room. This prompted a CT scan of the abdomen pelvis which did not show any abnormalities. She was given Bentyl which she has been taking on a scheduled basis. She is still having some lower GI bleeding and she still very nauseous and throwing up on a daily basis. She denied marijuana usage, cigarettes or previous abdominal surgeries. She denies any urinary tract infections but did admit to abnormal Pap smear in the past. I urged her to see a radiator mechanic. She was also diagnosed with excessive testosterone levels from her previous radiator mechanic. I told her it makes it even more important that she does see a radiator mechanic or portfolio mgr. She said she would discuss this with her primary. Her differential diagnosis for upper GI symptoms does include gastroparesis, peptic ulcer disease from NSAIDs, IBS, exocrine and endocrine insufficiency, H. pylori gastritis, celiac disease. The differential diagnosis for lower GI bleeding does include hemorrhoidal bleeding, anal fissure, diverticular bleeding, ulcerative colitis and less likely neoplasia. She will undergo an upper and lower endoscopy for evaluation of her lower GI tract. She will also undergo gastric emptying study and possible HIDA scan with ejection fraction in the near future pending blood work, imaging and endoscopic evaluation. Orders: Orders CBC W/Diff, Automated Today K92.2 - Gastrointestinal hemorrhage, unspecified Ferritin Today K92.2 - Gastrointestinal hemorrhage, unspecified BHUMI + Protein Elect, Serum Today K92.2 - Gastrointestinal hemorrhage, unspecified Iron Binding Capacity,Total Today K92.2 - Gastrointestinal hemorrhage, unspecified Retic Panel Count Today K92.2 - Gastrointestinal hemorrhage, unspecified Iron Today K92.2 - Gastrointestinal hemorrhage, unspecified Celiac Disease Profile Today K92.2 - Gastrointestinal hemorrhage, unspecified LDH Today K92.2 - Gastrointestinal hemorrhage, unspecified Haptoglobin Today K92.2 - Gastrointestinal hemorrhage, unspecified ANCA Today K92.2 - Gastrointestinal hemorrhage, unspecified Anti-Smooth Muscle ABS Today K92.2 - Gastrointestinal hemorrhage, unspecified CRP Today K92.2 - Gastrointestinal hemorrhage, unspecified Erythrocyte Sed Rate Today K92.2 - Gastrointestinal hemorrhage, unspecified Immunoglobulin E Today K92.2 - Gastrointestinal hemorrhage, unspecified Miscellaneous Lab Procedure Today K92.2 - Gastrointestinal hemorrhage, unspecified Comprehensive Metabolic Profil Today K92.2 - Gastrointestinal hemorrhage, unspecified Hepatitis Panel Acute Today K92.2 - Gastrointestinal hemorrhage, unspecified Thyroid Stim Hormone (TSH) Today K92.2 - Gastrointestinal hemorrhage, unspecified Allergen, Food Profile 14 Today K92.2 - Gastrointestinal hemorrhage, unspecified Pancreatic Elastase, Fecal Today K92.2 - Gastrointestinal hemorrhage, unspecified Calprotectin, Stool Today K92.2 - Gastrointestinal hemorrhage, unspecified Stool Lactoferrin/WBC Today K58.9 - Irritable bowel syndrome without diarrhea, K92.2 - Gastrointestinal hemorrhage, unspecified Giardia Lamblia, Stool EIA Today K92.2 - Gastrointestinal hemorrhage, unspecified Triglycerides Today K92.2 - Gastrointestinal hemorrhage, unspecified IgG Subclasses Today K92.2 - Gastrointestinal hemorrhage, unspecified UCHE Comprehensive Panel Today K92.2 - Gastrointestinal hemorrhage, unspecified Vitamin B12 Today K92.2 - Gastrointestinal hemorrhage, unspecified Vitamin D 1,25-Dihydroxy Today K92.2 - Gastrointestinal hemorrhage, unspecified Free T3 Today K92.2 - Gastrointestinal hemorrhage, unspecified FSH and LH Today K92.2 - Gastrointestinal hemorrhage, unspecified Gastrin, Serum Today K92.2 - Gastrointestinal hemorrhage, unspecified Gastric Emptying Study Today K92.2 - Gastrointestinal hemorrhage, unspecified, R11.2 - Nausea with vomiting, unspecified Medications: New prochlorperazine maleate 10 mg PO Q8H PRN 90 tabs 0RF nausea and vomiting pantoprazole 20 mg PO BID 30 days 60 tabs 3RF hyoscyamine sulfate 0.125 mg PO BID-QID PRN 30 tabs 1RF abdominal pain I have examined the patient and the H&P has been reviewed. There are no clinical changes since date of exam.
--- NOTE | 2023-11-23 09:30 | IMM_PTH ---
PATHOLOGY RESULTS PATIENT: CARLOS SAN LOC: EN U#:[id number] AGE/SX: 33/F ROOM: RE11/23/[address]: Dr. Javier Benoit DO : 1990 BED: DIS: 11/23/2023 SPEC #: [id number] RECD: 11/23/23 14:10 STATUS: LILIANA REGood #: [id number] SANTOS: 11/23/23 09:[address]: Javier Benoit DEPT: IMMUNOHISTOCHEMISTRY RECD BY: Macrina Thomas ENTERED: 11/23/23 14:10 SP TYPE: IMMUNO OTHR DR: Dr. Louann Dolan MD Tissues: Stomach, NOS Procedures: H Pylori (initial) PHYSICIAN & INSTITUTION [place] [address] SPECIMEN INFORMATION: Tissue Source: B - Gastric antrum Clinical Info: GI bleeding, nausea and vomiting Specimen Number: [id number] CPT code: 71019 METHODOLOGY: Deparaffinized sections of prefer/formalin-fixed tissue or PAP/DQ stained slides are incubated with monoclonal/polyclonal antibodies/oligonucleotide probes. Localization is made via biotin free immunoperoxidase method. Appropriate controls are performed and reacted as expected. Results on target cell population are indicated in the following table: RESULTS: ANTIBODY / CLONE RESULT Block B H Pylori (polyclonal) negative These tests were developed and their performance characteristics determined by [facility]. They may not have been cleared or approved by the U.S. Food and Drug Administration. The FDA has determined that such clearance or approval is not necessary. The above immunohistochemical/dualISH markers are ordered and reviewed by the Pathologist. INTERPRETATION: B. Gastric antrum, biopsy: Negative for Helicobacter pylori organisms. KOURTNEY:minoo 11/24/2023
--- NOTE | 2023-11-23 10:11 | OP.EGD_ITS ---
Patient Name: Jordyn Araujo Procedure Date: 11/23/2023 9:52 AM Date of : 1990 Age: 33 Procedure: Upper GI endoscopy Indications: Epigastric abdominal pain Providers: Javier Benoit DO Referring MD: Louann Dolan Medicines: Monitored Anesthesia Care Patient Profile: This is a 33 year old female. Refer to note in patient chart for documentation of history and physical. Patient has symptoms of acute epigastric abdominal pain. Complications: No immediate complications. Procedure: Pre-Anesthesia Assessment: - Prior to the procedure, a History and Physical was performed, and patient medications and allergies were reviewed. The patient is competent. The risks and benefits of the procedure and the sedation options and risks were discussed with the patient. All questions were answered and informed consent was obtained. Patient identification and proposed procedure were verified by the physician in the pre-procedure area. Mental Status Examination: alert and oriented. Airway Examination: normal oropharyngeal airway and neck mobility. Respiratory Examination: clear to auscultation. Prophylactic Antibiotics: The patient does not require prophylactic antibiotics. Prior Anticoagulants: The patient has taken no anticoagulant or antiplatelet agents. ASA Grade Assessment: II - A patient with mild systemic disease. After reviewing the risks and benefits, the patient was deemed in satisfactory condition to undergo the procedure. The anesthesia plan was to use monitored anesthesia care (MAC). Immediately prior to administration of medications, the patient was re-assessed for adequacy to receive sedatives. The heart rate, respiratory rate, oxygen saturations, blood pressure, adequacy of pulmonary ventilation, and response to care were monitored throughout the procedure. The physical status of the patient was re-assessed after the procedure. After obtaining informed consent, the endoscope was passed under direct vision. Throughout the procedure, the patient's blood pressure, pulse, and oxygen saturations were monitored continuously. The gastroscope was introduced through the anus and advanced to second part of duodenum. After obtaining informed consent, the endoscope was passed under direct vision. Throughout the procedure, the patient's blood pressure, pulse, and oxygen saturations were monitored continuously. The gastroscope was introduced through the mouth, and advanced to the second part of duodenum. The upper GI endoscopy was accomplished without difficulty. The patient tolerated the procedure well. Scope In: 10:03:24 AM Scope Out: 10:06:13 AM Total Procedure Duration Time 0 hours 2 minutes 49 seconds Findings: The examined esophagus was normal. One non-bleeding linear gastric ulcer with no stigmata of bleeding was found in the gastric antrum. The lesion was 6 mm in largest dimension. Biopsies were taken with a cold forceps for histology. Verification of patient identification for the specimen was done. Biopsies were taken with a cold forceps for Helicobacter pylori testing. Verification of patient identification for the specimen was done. No gross lesions were noted in the second portion of the duodenum. Biopsies were taken with a cold forceps for histology. Verification of patient identification for the specimen was done. Estimated blood loss was minimal. Impression: - Normal esophagus. - Non-bleeding gastric ulcer with no stigmata of bleeding. Biopsied. - No gross lesions in the second portion of the duodenum. Biopsied. Recommendation: - Discharge patient to home. - Resume previous diet. - Continue present medications. - Await pathology results. Procedure Code(s): --- Professional --- 17638, Esophagogastroduodenoscopy, flexible, transoral; with biopsy, single or multiple CPT copyright 2021 [employer]. All rights reserved. The codes documented in this report are preliminary and upon hairspring assembler review may be revised to meet current compliance requirements. Javier Benoit DO 11/23/2023 10:11:09 AM This report has been signed electronically. Number of Addenda: 0 Note Initiated On: 11/23/2023 9:52 AM
--- NOTE | 2023-11-23 10:11 | OP.CCLET_ITS ---
11/23/2023 Louann Dolan [address] [place] [address] Re : Upper GI endoscopy procedure for Jordyn Araujo Dear Dr. Dolan This procedure was performed on Thursday, November 23, 2023. My impressions and recommendations are as follows: Impressions : - Normal esophagus. - Non-bleeding gastric ulcer with no stigmata of bleeding. Biopsied. - No gross lesions in the second portion of the duodenum. Biopsied. Recommendations : - Discharge patient to home. - Resume previous diet. - Continue present medications. - Await pathology results. My findings are described in the full procedure note, which is enclosed. If I can be of further assistance, please feel free to contact me at . Sincerely, Javier Benoit, 11/23/2023 10:11:09 AM This report has been signed electronically.
== END 2023-11-23 10:57 | disposition home or self-care (01) ==
LOC: EN 07:55 → AC 07:56
PROVIDERS: Anesthesiology; PCP Internal Medicine; Referring Provider Internal Medicine; Visit Provider Internal Medicine Gastroenterology
PROC: 0DJ08ZZ Inspection of Upper Intestinal Tract, Via Natural or Artificial Opening Endoscopic (ICD-10-PCS; CPT 43235; principal; 2023-11-23 09:25)
DX: K29.70 Gastritis, unspecified, without bleeding (principal); K92.2 Gastrointestinal hemorrhage, unspecified; K25.9 Gastric ulcer, unspecified as acute or chronic, without hemorrhage or perforation; R11.2 Nausea with vomiting, unspecified; J45.909 Unspecified asthma, uncomplicated; K21.9 Gastro-esophageal reflux disease without esophagitis; Z79.899 Other long term (current) drug therapy
CPT/HCPCS: 43239; 81025; 88305; 88342; J7120; J2405

== ENCOUNTER 2023-11-24 04:35 | Emergency (ER) | payer OTHER, SELFPAY ==
[2023-11-24 04:36] VITALS: BP 108/54; PULSE 84; RESP 16; TEMP 36.6; O2SAT 96; BMI 30.8
--- NOTE | 2023-11-24 04:44 | EX.ED.VIS.HA ---
HPI History of Present Illness Chief Complaint: Headache Narrative Narrative: 33-year-old female past medical history of previous migraine headaches, presents with migraine headache that began approximately 12 hours ago. She states that yesterday she had a procedure performed, and that she had an anoscopy . She is not sure if she is having a reaction to the anesthesia because in the evening, she developed a migraine headache. She states is little worse than her previous migraines but similar in location. It is in her front forehead area and radiates towards the back, then will lighten up and then go forward again. She endorses photophobia and phonophobia but no numbness or tingling of her arms or legs, no blurred vision. She was nauseated and vomited once. She states that she found out that ibuprofen which she usually takes for headaches was causing her ulcers. However, she did take Aleve an hour prior to arrival which did nothing for her pain. She presents because of migraine headache. [facility] Medical History Alcohol use Anxiety Arthritis Asthma Back pain Bipolar disorder Easy bruising Gastric reflux History of irregular heartbeat History of pain when walking History of steroid therapy Injury of head and neck Loss of consciousness Low iron Marijuana use Migraine Restless legs Shortness of breath on exertion Syncope Vapes nicotine containing substance Wears glasses Home Medications fluoxetine 40 mg capsule 40 mg PO DAILY 01/13/22 [History Last Taken 11/23/23 06:00] tizanidine 4 mg capsule (Zanaflex) 4 mg PO Q8H PRN muscle spasticity #14 caps 04/18/22 [Rx Last Taken Unknown] prochlorperazine maleate 10 mg tablet 10 mg PO Q8H PRN nausea and vomiting #90 tabs 11/10/23 [Rx Last Taken Unknown] hyoscyamine sulfate 0.125 mg tablet 0.125 mg PO DAILY PRN abdominal pain 11/19/23 [History Last Taken Unknown] pantoprazole 20 mg tablet,delayed release 20 mg PO DAILY 11/19/23 [History Last Taken Unknown] Allergy/AdvReac Type Severity Reaction Status Date / Time sumatriptan [From Imitrex] Allergy Mild Other Verified 11/23/23 08:36 Surgical History Hx of tonsillectomy Social History Smoking Status: Current some day smoker tobacco type: e-cigarettes alcohol intake: current substance use type: does not use ROS ROS ED ROS Narrative Constitutional: No fever, no chills. HEENT: No sore throat. No neck pain. No loss of vision. No rhinorrhea. Cardiovascular: No chest pain. No palpitations. No pedal edema. Respiratory: No cough, no shortness of breath. Abdominal: No abdominal pain. 1 episode of nausea and vomiting. Genitourinary: No dysuria. No hematuria. Musculoskeletal: No myalgias. No arthralgias. Neurologic: Positive headaches. No dizziness. No lightheadedness. No paresthesias. No loss of vision. Positive phonophobia and photophobia. Skin: No rash. No change in color. Psychiatric: No depression. No anxiety. EXAM Physical Exam Narrative Exam Narrative: Afebrile. Vital signs noted. HEENT: Normocephalic. Atraumatic. PERRL, EOMI. Neck soft and supple. No point tenderness or step off. Cardiovascular: Regular rate and rhythm. No murmurs, rubs, or gallops appreciated. Respiratory: No tachypnea. Lungs clear to auscultation bilaterally. Gastrointestinal: Abdomen soft, nontender, with normoactive bowel sounds. No rebound or guarding. Neurological: Awake. Alert. Nonfocal, nonlateralizing. Patellar DTRs equal and symmetric. EHL intact bilaterally. Skin: No rash. Normal color. No pallor. Musculoskeletal: No pedal edema. Full range of motion extremities. Const Vital Signs: 11/24/23 04:36 Temperature 97.8 F Temperature Source Temporal Pulse Rate 84 Respiratory Rate 16 Blood Pressure 108/54 L Blood Pressure Mean 72 Pulse Ox 96 Oxygen Delivery Method Room Air MDM MDM MDM Narrative Medical decision making narrative: Concern is for migraine headache. I do not feel that she meets requirement for CT scanning as her exam is nonfocal and nonlateralizing. I have low suspicion for intracranial hemorrhage or intracranial mass. I reviewed her prior records and she had been given Toradol, Benadryl, and Reglan in the past. As she has already taken an NSAID and stated that she found out that she has ulcers, I will refrain from Toradol use here in the emergency department. She currently rates her headache at about a 7 or 7-1/2. She will be bolused IV fluids and administered 10 mg of Reglan and 50 mg of Benadryl intravenously. On repeat examination at approximately 6:45 AM, she now rates her pain down to a 3 or 4, and as she has lessened by at least 2, I feel that she can be discharged to follow-up with her primary care provider. I also referred her to neurology as her new medications out there for migraines. She will be given a note to be off work today. I do not feel she requires admission. Disposition is discharged home in improved and stable condition. History & Record Review Discussion w/independent historian: Patient Additional record(s) reviewed:: Prior outpatient record and Prior ED visit Discharge Plan Triage Chief Complaint: Headache ED Provider: Steve Sweeney Dx/Rx/DC Orders Clinical Impression: Migraine headache Instructions: Migraine Triggers, ED, Migraine (Classical) Prescriptions: No Action prochlorperazine maleate 10 mg tablet 10 mg PO Q8H PRN (Reason: nausea and vomiting) Qty: 90 0RF fluoxetine 40 mg capsule 40 mg PO DAILY Patient Comments: take 1 capsule by mouth once daily tizanidine [Zanaflex] 4 mg capsule 4 mg PO Q8H PRN (Reason: muscle spasticity) Qty: 14 0RF pantoprazole 20 mg tablet,delayed release (DR/EC) 20 mg PO DAILY hyoscyamine sulfate 0.125 mg tablet 0.125 mg PO DAILY PRN (Reason: abdominal pain) Primary Care Provider: Louann Dolan Referrals: Louann Dolan MD [Primary Care Provider] - 3-5 Days if not improving Iggy Newby MD [Non-Staff -Ordering Privileges] - As Needed Disposition Disposition: Home, Self Care
[2023-11-24] MEDS: DiphenhydrAMINE 50 MG/ML Syringe IV (04:56)
[2023-11-24] MEDS: 0.9% Normal Saline (1000mL) 1,000 ML 999 ML IV (04:56)
[2023-11-24] MEDS: Metoclopramide 10 MG/2 ML Vial IV (04:56)
--- OUTSIDE RECORDS SUMMARY | 2023-11-24 05:32 | XMS RPT_ITS | CCD ---
Author Name Unknown Address [address] [place] [address] Organization [facility] Care Team Providers Care [employer] Business Development Officer Name Role Phone Brad Dolan MD Primary [...] sources) SUMAtriptan; Translations: [SUMATRIPTAN] Drug Allergy 10-04-2019 [facility] Medications Current Medications Medication Drug Class(es) [...] 97.11 [degF] Jarrett Carcamo MD Work Phone: [facility] 09-28-2023 10:46-0500 Body weight 77.29 kg Jarrett Carcamo MD Work Phone: [facility] 09-28-2023 10:46-0500 Diastolic blood pressure 72 mm[Hg] Jarrett Carcamo MD Work Phone: [facility] 09-28-2023 10:46-0500 Heart rate 62 /min Jarrett Carcamo MD Work Phone: [facility] 09-28-2023 10:46-0500 Respiratory rate 21 /min Jarrett Carcamo MD Work Phone: [facility] 09-28-2023 10:46-0500 SaO2% (BldA) [Mass fraction] 98 % Jarrett Carcamo MD Work Phone: [facility] 09-28-2023 10:46-0500 Systolic blood pressure 98 mm[Hg] Jarrett Carcamo MD Work Phone: [facility] 09-04-2023 10:03-0400 Body temperature 98.01 [degF] Amalia Gerard APRN.TEACHER Work Phone: [facility] 09-04-2023 10:03-0400 Body weight 77.47 kg Amalia Gerard APRN.TEACHER Work Phone: [facility] 09-04-2023 10:03-0400 Diastolic blood pressure 70 mm[Hg] Amalia Gerard APRN.TEACHER Work Phone: [facility] 09-04-2023 10:03-0400 Heart rate 81 /min Amalia Gerard APRN.TEACHER Work Phone: [facility] 09-04-2023 10:03-0400 Respiratory rate 18 /min Amalia Gerard APRN.TEACHER Work Phone: [facility] 09-04-2023 10:03-0400 SaO2% (BldA) [Mass fraction] 97 % Amalia Gerard APRN.TEACHER Work Phone: [facility] 09-04-2023 10:03-0400 Systolic blood pressure 104 mm[Hg] Amalia Gerard APRN.TEACHER Work Phone: [facility] 08-24-2023 09:26-0400 Body temperature 96.91 [degF] Avril Rhoades APRN.TEACHER Work Phone: [facility] 08-24-2023 09:26-0400 Body weight 78.47 kg Avril Rhoades APRN.TEACHER Work Phone: [facility] 08-24-2023 09:26-0400 Diastolic blood pressure 72 mm[Hg] Avril Rhoades APRN.TEACHER Work Phone: [facility] 08-24-2023 09:26-0400 Heart rate 88 /min Avril Pendlebury SPRAY STAINER.TEACHER Work Phone: [facility] 08-24-2023 09:26-0400 Respiratory rate 16 /min Avril Pendlebury SPRAY STAINER.TEACHER Work Phone: [facility] 08-24-2023 09:26-0400 SaO2% (BldA) [Mass fraction] 98 % Avril Pendduglasbury SPRAY STAINER.TEACHER Work Phone: [facility] 08-24-2023 09:26-0400 Systolic blood pressure 126 mm[Hg] Avril Pendlebury SPRAY STAINER.TEACHER Work Phone: [facility] 05-12-2023 07:15-0400 Body temperature 98.6 [degF] Isela Praisler-Wood SPRAY STAINER.TEACHER Work Phone: [facility] 05-12-2023 07:15-0400 Body weight 79.38 kg Isela Praisler-Wood SPRAY STAINER.TEACHER Work Phone: [facility] 05-12-2023 07:15-0400 Diastolic blood pressure 82 mm[Hg] Isela Praisler-Wood SPRAY STAINER.TEACHER Work Phone: [facility] 05-12-2023 07:15-0400 Heart rate 76 /min Isela Praisler-Wood SPRAY STAINER.TEACHER Work Phone: [facility] 05-12-2023 07:15-0400 Respiratory rate 16 /min Isela Praisler-Wood SPRAY STAINER.TEACHER Work Phone: [facility] 05-12-2023 07:15-0400 SaO2% (BldA) [Mass fraction] 98 % Isela Praisler-Wood SPRAY STAINER.TEACHER Work Phone: [facility] 05-12-2023 07:15-0400 Systolic blood pressure 118 mm[Hg] Isela Praisler-Wood SPRAY STAINER.TEACHER Work Phone: [facility] 03-12-2023 16:05-0400 Body temperature 98.01 [degF] Chiara Donell SPRAY STAINER.TEACHER Work Phone: [facility] 03-12-2023 16:05-0400 Body weight 77.66 kg Chiara Donell SPRAY STAINER.TEACHER Work Phone: [facility] 03-12-2023 16:05-0400 Diastolic blood pressure 66 mm[Hg] Chiara Donell SPRAY STAINER.TEACHER Work Phone: [facility] 03-12-2023 16:05-0400 Heart rate 101 /min Chiara Donell SPRAY STAINER.TEACHER Work Phone: [facility] 03-12-2023 16:05-0400 Respiratory rate 18 /min Chiara Donell SPRAY STAINER.TEACHER Work Phone: [facility] 03-12-2023 16:05-0400 SaO2% (BldA) [Mass fraction] 97 % Chiara Donell SPRAY STAINER.TEACHER Work Phone: [facility] 03-12-2023 16:05-0400 Systolic blood pressure 122 mm[Hg] Chiara Donell SPRAY STAINER.TEACHER Work Phone: [facility] 09-25-2022 10:37-0500 Body weight 82.56 kg Fouzia Amezquita SPRAY STAINER.CLIPPER AUTOMATIC Work Phone: [facility] 09-25-2022 10:37-0500 Diastolic blood pressure 58 mm[Hg] Fouzia Amezquita SPRAY STAINER.CLIPPER [employer]OM[employer]IC Work Phone: [facility] 09-25-2022 10:37-0500 Heart rate 65 /min Fouzia Amezquita SPRAY STAINER.CLIPPER AUTOMATIC Work Phone: [facility] 09-25-2022 10:37-0500 SaO2% (BldA) [Mass fraction] 98 % Fouzia Amezquita SPRAY STAINER.CLIPPER AUTOMATIC Work Phone: [facility] 09-25-2022 10:37-0500 Systolic blood pressure 94 mm[Hg] Fouzia Amezquita SPRAY STAINER.CLIPPER [employer] Work Phone: [facility] 09-11-2022 09:14-0400 Body weight 81.65 kg Fouzia Amezquita SPRAY STAINER.CLIPPER [employer] Work Phone: [facility] 09-11-2022 09:14-0400 Diastolic blood pressure 62 mm[Hg] Fouzia Amezquita SPRAY STAINER.CLIPPER [employer]OM[employer]IC Work Phone: [facility] 09-11-2022 09:14-0400 Heart rate 68 /min Fouzia Amezquita SPRAY STAINER.CLIPPER AUTOMATIC Work Phone: [facility] 09-11-2022 09:14-0400 Respiratory rate 16 /min Fouzia Amezquita SPRAY STAINER.CLIPPER AUTOMATIC Work Phone: [facility] 09-11-2022 09:14-0400 SaO2% (BldA) [Mass fraction] 98 % Fouzia Amezquita SPRAY STAINER.CLIPPER [employer]OMATIC Work Phone: [facility] 09-11-2022 09:14-0400 Systolic blood pressure 94 mm[Hg] Fouzia Amezquita SPRAY STAINER.CLIPPER [employer]OMATIC Work Phone: [facility] 06-11-2022 10:49-0400 Body temperature 97.2 [degF] Jarrett Carcamo MD Work Phone: [facility] 06-11-2022 10:49-0400 Body weight 86.55 kg Jarrett Carcamo MD Work Phone: [facility] 06-11-2022 10:49-0400 Diastolic blood pressure 82 mm[Hg] Jarrett Carcamo MD Work Phone: [facility] 06-11-2022 10:49-0400 Heart rate 62 /min Jarrett Carcamo MD Work Phone: [facility] 06-11-2022 10:49-0400 Respiratory rate 16 /min Jarrett Carcamo MD Work Phone: [facility] 06-11-2022 10:49-0400 SaO2% (BldA) [Mass fraction] 97 % Jarrett Carcamo MD Work Phone: [facility] 06-11-2022 10:49-0400 Systolic blood pressure 120 mm[Hg] Jarrett Carcamo MD Work Phone: [facility] 03-13-2022 07:54-0400 Body height 160 cm Katelyn Hoff SPRAY STAINER.TEACHER Work Phone: [facility] 03-13-2022 07:54-0400 Body weight 84.19 kg Katelny Hoff SPRAY STAINER.TEACHER Work Phone: [facility] 03-13-2022 07:54-0400 Diastolic blood pressure 60 mm[Hg] Katelyn Hoff SPRAY STAINER.TEACHER Work Phone: [facility] 03-13-2022 07:54-0400 Systolic blood pressure 90 mm[Hg] Katelyn Hoff SPRAY STAINER.TEACHER Work Phone: [facility] 03-11-2022 07:10-0400 Body height 161.9 cm Fouzia Amezquita SPRAY STAINER.[employer]IPPER [employer] Work Phone: [facility] 03-11-2022 07:10-0400 Body weight 83.01 kg Fouzia Amezquita SPRAY STAINER.CLIPPER AUTOMATIC Work Phone: [facility] 03-11-2022 07:10-0400 Diastolic blood pressure 72 mm[Hg] Fouzia Amezquita SPRAY STAINER.CLIPPER AUTOMATIC Work Phone: [facility] 03-11-2022 07:10-0400 Heart rate 68 /min Fouzia Amezquita SPRAY STAINER.CLIPPER AUTOM[employer]IC Work Phone: [facility] 03-11-2022 07:10-0400 Respiratory rate 16 /min Fouzia Amezquita SPRAY STAINER.CLIPPER AUTOMATIC Work Phone: [facility] 03-11-2022 07:10-0400 Systolic blood pressure 104 mm[Hg] Fouzia Amezquita SPRAY STAINER.CLIPPER [employer]OMATIC Work Phone: [facility] Encounters Encounter Date Encounter Type Care Provider Facility Start: 10-05-2023 ambulatory Brad salcedo MD Work Phone: Internal [facility] Procedures Date Procedure Procedure Detail Performing Clinician Start: 03-12-2023 STREP A MOLECULAR (POC) Amalia Gerard APRN.TEACHER Work Phone: Start: 06-11-2022 Urnls dip stick/tabl et rgnt auto w/o microscopy Hi João SPRAY STAINER.TEACHER Work Phone: Start: 03-11-2022 Adult depression screening assessment Fouzia Amezquita SPRAY STAINER.[employer]IPPER [employer] Work Phone: Plan of Treatment Date Care Activity Detail Author Start: 03-13-2027 HPV TESTING HPV TESTING [facility] Start: 03-13-2027 PAP TESTING PAP TESTING [facility] Start: 05-15-2024 Influenza vaccination Influenza Vacc ine (#1) [facility] Immunizations Immunization Date Immunization Notes Care Provider Fa cility 05-20-2021 COVID-19 vaccine (ABDI) Fouzia Amezquita SPRAY STAINER.CLIPPER AUTOM[employer]IC Work Phone: [facility] Work Phone: Payers Date Payer Category Payer Unknown [id number] 2021 Unknown [employer] PPO [id number] 2021-Present [phone] [address] [place] [address] PPO [id number] 2021 Unknown [id number] 2021 Unknown [facility] [id number] 2021-Present [phone] [address] [place] [address] PPO [id number] Social History Date Type Detail Facility Start: 10-16-2021 End: 09-11-2022 Tobacco smoking status NHIS Never smoked tobacco [facility] Start: 10-16-2021 End: 09-11-2022 Tobacco use and exposure Smokeless tobacco non-user [facility] Start: 1990 Sex Assigned At Not on file [facility] Start: 03-01-2022 End: 09-25-2022 Exposure to SARS-CoV-2 (event) Not sure [facility] Work Phone: Start: 03-13-2022 End: 09-28-2023 Alcohol intake Current drinker of alcohol (finding) [facility] Start: 03-13-2022 History SDOH Alcohol Comment socially [facility] Start: 09-11-2022 End: 11-07-2022 History SDOH Alcohol Frequency 2 [facility] Start: 09-11-2022 End: 11-07-2022 History SDOH Alcohol Std Drinks 1 [facility] Start: 09-11-2022 End: 11-07-2022 History SDOH Social Connections Confucianism 3 [facility] Start: 09-11-2022 History SDOH Social Connections Meetings 98 [facility] Start: 09-11-2022 End: 11-07-2022 History SDOH Physical Activity DPW 5 [facility] Start: 09-11-2022 History SDOH Physica l Activity MPS 0 [facility] Start: 11-07-2022 History SDOH Financial 4 [facility] Start: 11-07-2022 End: 12-13-2022 History of Social function [facility] Start: 11-07-2022 End: 12-13-2022 Social connection and isolation panel [facility] Do you belong to any clubs or organizations such as uatsdin groups, unions, fraternal or athletic groups, or school groups? No [facility] Are you now , , , , never or living with a partner? [facility] How often to you hav e a drink containing alcohol? Monthly or less [facility] How many standard dr inks containing alcohol do you have on a typical day? 1 or 2 [facility] How often do you hav e 6 or more drinks on 1 occasion? Less than monthly [facility] How hard is it for y ou to pay for the very basics like food, housing, medical care, and heating Not very hard [facility] Adult Depression Scr eening Assessment 4 [facility] Do you feel stress - tense, restless, nervous, or anxious, or unable to sleep at night because your mind is troubled all the time - these days [OSQ] Very much [facility] (I/We) worried whefred er (my/our) food would run out before (I/we) got money to buy more. Never true [facility] Clinical Notes 03-11-2022 to 10-14-2023 Telephone Encounter [...] she is okay with going outside of [place] to [facility] GI, can refer to GI in [facility] or [place], or other [facility] site that she prefers. With regards to [...] Please advise patient. documented in this encounter [facility] 10-05-2023 Miscellaneous Notes Patient call in for [...] Has been getting dizzy. Protocols used: Rectal [id number] documented in this encounter [facility] 09-28-2023 Note HNO ID: [id number] Author: Issa Bhatti APRN.TEACHER Service: ? Author Type: Nurse Practitioner Type: [...] 18 Wt 170 lb (77.1kg) SpO2 97% [facility] 09/26/2023 Physical Exam Vitals and nursing note [...] necessary edited, so (more content not included)... [facility] 09-28-2023 Note HNO ID: [id number] Author: Jarrett Carcamo MD Service: ? Author [...] walked to appointment desk. Jarrett Carcamo MD [facility] 09-28-2023 History of Presen t [...] Jarrett Carcamo MD documented in this encounter [facility] 09-04-2023 Note HNO ID: [id number] Author: Amalia Gerard APRN.DAR Service: ? Author [...] Patient agreeable to treatment plan. Amalia Gerard APRN.[facility] 09-04-2023 History of Presen t illness [...] Amalia Gerard APRN.DAR documented in this encounter [facility] 08-24-2023 Note HNO ID: [id number] Author: Elle Michaud RT(R) Service: Radiology Author [...] RT Michael(R) August 24, 2023 9:56 AM [facility] 08-24-2023 Miscellaneous Notes Patient notified of results as listed below, verbalized understanding of instructions given. Margot Gross MA X-rays normal. Continue care plan as discussed. Avril Rhoades APRN.CNP documented in this encounter [facility] 08-24-2023 Note HNO ID: [id number] Author: Avril Rhoades APRN.DAR Service: ? Author [...] of care. This note was generated using go2 media software. It may contain errors in wording, punctuation, or spelling. Avril Rhoades APRN.[facility] 08-24-2023 History of Presen t illness [...] of care. This note was generated using go2 media software. It may contain errors in wording, punctuation, or spelling. Avril Rhoades APRN.DAR documented in this encounter [facility] 07-01-2023 Miscellaneous Notes Last office visit: 11/07/22 [...] Angela Stephenson LPN documented in this encounter [facility] 06-25-2023 Miscellaneous Notes Last office visit: 11/07/2022 No future appt Dahiana Arriaga LPN documented in this encounter [facility] 05-13-2023 Miscellaneous Notes Spoke with pt and information listed below given. Pt verbalizes understanding. Marli Cui LPN Left message for patient to return call. Maria E Ashton Negative for flu and covid please notify thank you documented in this encounter [facility] 05-12-2023 Note HNO ID: [id number] Author: Isela Gonzalez APRN.DAR Service: ? Author [...] Discussed expected course of illness Isela Gonzalez APRN.[facility] 05-12-2023 History of Presen t illness [...] Discussed expected course of illness Isela Gonzalez APRN.TEACHER documented in this encounter [facility] 05-12-2023 Instructions Iseal Gonzalez APRN.TEACHER - 05/12/2023 7:29 AM EDT ASSESSMENT/PLAN: 1. [...] Discussed expected course of illness Isela Gonzalez APRN.TEACHER Treatment for Viral Upper Respiratory Tract Infections [...] fluids help open respiratory and sinus passages Hilger Nasal [place] may offer relief of nasal and head [...] rather than better documented in this encounter [facility] 04-27-2023 Note HNO ID: [id number] Author: CHIVO Umana Service: ? Author Type: Physician Health Specialist Type: Progress Notes Filed: 04/27/2023 11:54 AM Note Text: This note was created using [employer]. Subjective Jordyn Araujo is a 33 year [...] detail warranting prompt ER evaluation. CHIVO Umana [facility] 03-12-2023 Note HNO ID: [id number] Author: Chiara Marley APRN.TEACHER Service: ? Author Type: Nurse Practitioner Type: Progress Notes Filed: 03/12/2023 4:29 PM Note Text: Subjective The history is provided by the patient. No tack puller was used. HPI Jordyn Araujo is a [...] have confirmed and edited as necessary, the [facility] Review of Systems Constitutional: Positive for chills, [...] warranting prompt ER evaluation. Chiara Marley APRN.CNP [facility] 03-12-2023 Instructions Chiara Marley APRN.CNP [...] inability to swallow. documented in this encounter [facility] 03-12-2023 History of Presen t illness Narrative Subjective The history is provided by the patient. No tack puller was used. HPI Jordyn Araujo is a [...] have confirmed and edited as necessary, the [facility] Review of Systems Constitutional: Positive for chills, [...] Chiara Marley APRN.DAR documented in this encounter [facility] 11-07-2022 Note HNO ID: [id number] Author: Brad Dolan MD Service: ? Author Type: Physician Type: Progress Notes Filed: 11/07/2022 5:43 PM Note Text: VIRTUAL VISIT PROGRESS NOTE This is a virtual visit using [employer] video visit. It required patient-provider interaction for [...] file for this visit. Brad Dolan MD [facility] 11-07-2022 History of Presen t illness Narrative VIRTUAL VISIT PROGRESS NOTE This is a virtual visit using [employer] video visit. It required patient-provider interaction for [...] Brad Dolan MD documented in this encounter [facility] 11-07-2022 Miscellaneous Notes Patient switched to video documented in this encounter [facility] 10-15-2022 Miscellaneous Notes Last office visit: 09/25/22 Next appointment scheduled: 11/07/22 Patient phones requesting refills as follows: Requested Prescriptions Pending Prescriptions Disp Refills FLUoxetine (PROZAC) 40 mg capsule 90 capsule 3 Sig: Take 1 capsule by mouth once daily. Please review and advise. Angela Stephenson LPN documented in this encounter [facility] 09-25-2022 History of Presen t illness Narrative [...] now. - CONSULT TO ORTHOPAEDICS Fouzia Amezquita APRN.[employer] Medical Decision Making: Problems: Moderate: New problem with uncertain prognosis Risk: Moderate: Drug management Medical Decision Making Level: 4 - Moderate documented in this encounter [facility] 09-11-2022 Instructions Fouzia Amezquita APRN.CNS - 09/11/2022 9:32 AM EDT Check to see if your insurance covers Tdap vaccine and what location to get the vaccine Return here or go to pharmacy for Covid 19 booster documented in this encounter [facility] 09-11-2022 History of Presen t illness Narrative [...] care. Presents today to establish care with [facility] provider. Previous PCP: Dr Aleksandr Mares [facility]. Last seen: Jul 2021 Labwork: about Jul 2021, [place] Outside records:none available at the time of her visit. 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 States she took phentermine for weight loss and for gag reflex in the past per her previous PCP in [place]. History of PCOS, not currently taking metformin. [...] since that time. Has been seen at [facility] ER for this since moving to the [...] HEPLISAV B (HEPATITIS B, ADJUVANT, ADULT) - [employer] COVID-19 BIVALENT BOOSTER VACCINE, AGE 12+ YR [...] if needed in the interval Fouzia Amezquita APRN.[employer]IP[employer] Medical Decision Making: Problems: Low: Acute, uncomplicated illness or injury and Stable chronic illness Risk: Moderate: Drug management Medical Decision Making Level: 3 - Low documented in this encounter [facility] 07-09-2022 Miscellaneous Notes Okayed Patient has been [...] Meg Joyner LPN documented in this encounter [facility] 06-11-2022 History of Presen t illness Narrative [...] Jarrett Carcamo MD documented in this encounter [facility] 03-18-2022 History of Presen t illness Narrative GENERAL PSYCHOLOGY Patient was seen for an initial evaluation. All information is from Patient report except when noted. This evaluation is NOT intended for forensic, disability or child custody purposes. Informed consent was discussed and signed by the patient. -Pt was sent mychart msg with consent for tx -Pt read mychart msg,agreed [facility] Assessment: In Person Wstr Pt cancelled same day [facility] received a mychart msg from Pt today at 7:57am stating she needed to cancel her appt today due to needing to take her to chemo therapy -[facility] sent mychart msg with an available appt to resched appt -[facility] sent mychart msg with late cancellation ltr KASSY Parks documented in this encounter [facility] 03-14-2022 Miscellaneous Notes Patient notified. Kaitlin Sales RN The following approved medication requests have been transmitted electronically. Signed Prescriptions Disp Refills metroNIDAZOLE (FLAGYL) 500 mg tablet 14 tablet 0 Sig: Take 1 tablet by mouth twice daily for 7 days. Authorizing Provider: KATELYN HOFF Pharmacy Information Pharmacy Address Telephone [facility]/pharm[facility] #[id number] [place] [address] Left message to call office. [...] Katelyn Hoff APRN.DAR documented in this encounter [facility] 03-13-2022 History of Presen t illness Narrative Jordyn is a 32 year old who presents for an annual gynecologic exam with complaints of increase in vaginal discharge for several months. No itching, irritation or odor. Has been told that she has high testosterone but takes no medication. No history of PCOS that she is aware of. Moved to [place] from [place] 6 months ago due to 's job. Menses: cycles every 30-60 days and 4-5 days of flow. + cramping. Does not keep track of period but knows she has one each month at varying times. 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 HPV vaccine: No Last Pap: 5+ years ago in [facility] - thinks it was normal HPV: negative History of abnormal pap: Yes, had biopsy x 2, unsure of other procedures Last mammogram: never Sexually active: Yes History of STDS: ?HPV Patient concerns for STD exposure: No. Time with current partner: 10 years Pain with intercourse: No Postcoital bleeding: No OB History T2 L2 SAB0 IAB0 Ectopic0 Multiple0 Live Births0 Metalizing Supervisor History LMP: 03/08/2022, Having periods Age at Menarche: Age at First : Age at Menopause: Metalizing Supervisor History Comments: Sexual Activity: Yes; Male Contraception: [...] external genitalia normal, normal [place]th[place]'s glands, urethra, [place]'s glands, no vulvar lesions, no cervical lesions, [...] Katelyn Hoff APRN.DAR documented in this encounter [facility] 03-11-2022 History of Presen t illness Narrative SUBJECTIVE: HEPATITIS C SCREENING Never done HIV SCREENING Never done DTAP,TDAP,TD(1 - Tdap) Never done PAP TESTING Never done HPV TESTING Never done COVID-19 VACCINE(2 - Booster for Abdi series) due on 07/15/2021 HPI Jordyn Araujo is a 32 year old female. Presents today for physical exam, to establish care. Presents today to establish care with [facility] provider. Previous PCP: Dr Aleksandr Mares RUST. Last seen: Jul 2021 Labwork: about Jul 2021, [place] Outside records:none available at the time of her visit. 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 States she took phentermine for weight loss and for gag reflex in the past per her previous PCP in [place]. History of PCOS, not currently taking metformin. [...] since that time. Has been seen at [facility] ER for this since moving to the [...] ICD9: V72.31, ICD10: Z01.419 - CONSULT TO HOSE TUBING BACKER 4. Screening for HIV (human immunodeficiency virus) [...] 4 - Moderate documented in this encounter [facility] Encounter for gynecological examination (general) (routine) without abnormal findings- Primary Vaginal discharge Leukorrhea, not specified as infective Screening for cervical cancer Screening for malignant neoplasm of the cervix Encounter for screening for human papillomavirus (HPV) Special screening examination for human papillomavirus (HPV) [facility] Diagnosis BV (bacterial vaginosis)- Primary Vaginitis and vulvovaginitis, unspecified [facility] Diagnosis No-show for appointment- Primary [facility] Diagnosis Acute midline low back pain without sciatica- Primary Urinary frequency [facility] Diagnosis Bilateral wrist pain- Primary Pain [...] depression Dysthymic disorder [facility]* Diagnosis Injury of left knee, subsequent encounter- Primary Acute pain of left knee documented in this encounter [facility] note* Diagnosis Anxiety and depression- Primary Dysthymic disorder Missed periods Absence of menstruation documented in this encounter [facility] note* Diagnosis Sore throat- Primary Acute pharyngitis Strep throat Streptococcal sore throat documented in this encounter [facility] note* Diagnosis Viral URI with cough- Primary Acute upper respiratory infections of unspecified site Nausea and vomiting, unspecified vomiting type documented in this encounter [facility] note* Diagnosis Pain of right hip- Primary [facility]* Diagnosis URI, acute- Primary Acute upper respiratory infections of unspecified site documented in this encounter [facility] note* Diagnosis Acute midline low back pain without sciatica- Primary Dizziness Dizziness and giddiness Nausea and vomiting, unspecified vomiting type documented in this encounter [facility] note* Diagnosis Nausea- Primary Nausea alone [facility] Diagnostic Procedure Only (Urgent) - Closed Specialty Diagnoses / Procedures Referred By George matta Referred To Contact XR IMAGING Diagnoses Pain of right hip Procedures XR HIP GENERAL 3V PELV/AP/LAT RIGHT RADEX HIP UNILATERAL WITH PELVIS 2-3 VIEWS Avril Rhoades APRN.TEACHER [address] [place] [address] [place] [address] Referral ID Status Reason Start Date Expiration Date V isits Requested Visits Authorized [id number] Closed Auto-Generated Referral Clearance Not Met -Financial Clearance Bypassed 08/24/2023 09/22/2024 1 1 [facility] Reason for Referral Specialty Diagnoses / Procedures Referred By George matta Referred To Contact [facility] Diagnoses Chronic right-sided low back pain with right-sided sciatica Procedures CONSULT TO PHYSICAL THERAPY PHYSICAL THERAPY EVALUATION HIGH COMPLEX 45 MINS Fouzia Amezquita APRN.CLIPPER AUTOMATIC [address] [place] [address] [facility] [place] [address] [place] [address] Referral ID Status Reason Start Date Expiration Date Visits Requested Visits Authorized [id number] Pending Review Auto-Generat ed Referral 03/11/2022 03/11/2023 1 1 Specialty Diagnoses / Procedures Referred By Contac t Referred To Contact Diagnoses Well woman exam with routine gynecological exam Procedures CONSULT TO HOSE TUBING BACKER OFFICE/OUTPATIENT [facility] 60-74 MINUTES Fouzia Amezquita, SPRAY STAINER.[employer] [address] [place] [address] Referral ID Status Reason Start Date Expiration Date Visits Requested Visits Authorized [id number] Authorized PCP Requested Referral Auto-Generate d Referral 03/11/2022 03/11/2023 1 1 Specialty Diagnoses / Procedures Referred By Contac t Referred To Contact Orthopedics Diagnoses Injury of left knee, subsequent encounter Acute pain of left knee Procedures CONSULT TO ORTHOPAEDICS OFFICE/OUTPATIENT [facility] 60-74 MINUTES Fouzia Amezquita APRN.[employer]PER [employer] [address] [place] [address] Referral ID Status Reason Start Date Expiration Date Visits Requested Visits Authorized [id number] Pending Review PCP Requested Referral 2 09/25/2023 [...] or prosecute any alcohol or drug abuse patient.[facility] the event this information is protected by the Federal Confidentiality of Alcohol and Drug Abuse Patient Records regulations: The Federal rules restrict any use of the information to criminally investigate or prosecute any alcohol or drug abuse patient.[facility] the event this information is protected by the Federal Confidentiality of Alcohol and Drug Abuse Patient Records regulations: The Federal rules restrict any use of the information to criminally investigate or prosecute any alcohol or drug abuse patient.[facility] the event this information is protected by the Federal Confidentiality of Alcohol and Drug Abuse Patient Records regulations: The Federal rules restrict any use of the information to criminally investigate or prosecute any alcohol or drug abuse patient.[facility] the event this information is protected by the Federal Confidentiality of Alcohol and Drug Abuse Patient Records regulations: The Federal rules restrict any use of the information to criminally investigate or prosecute any alcohol or drug abuse patient.[facility] the event this information is protected by the Federal Confidentiality of Alcohol and Drug Abuse Patient Records regulations: The Federal rules restrict any use of the information to criminally investigate or prosecute any alcohol or drug abuse patient.[facility] the event this information is protected by the Federal Confidentiality of Alcohol and Drug Abuse Patient Records regulations: The Federal rules restrict any use of the information to criminally investigate or prosecute any alcohol or drug abuse patient.[facility] the event this information is protected by the Federal Confidentiality of Alcohol and Drug Abuse Patient Records regulations: The Federal rules restrict any use of the information to criminally investigate or prosecute any alcohol or drug abuse patient.[facility] the event this information is protected by the Federal Confidentiality of Alcohol and Drug Abuse Patient Records regulations: The Federal rules restrict any use of the information to criminally investigate or prosecute any alcohol or drug abuse patient.[facility] the event this information is protected by the Federal Confidentiality of Alcohol and Drug Abuse Patient Records regulations: The Federal rules restrict any use of the information to criminally investigate or prosecute any alcohol or drug abuse patient.[facility] the event this information is protected by the Federal Confidentiality of Alcohol and Drug Abuse Patient Records regulations: The Federal rules restrict any use of the information to criminally investigate or prosecute any alcohol or drug abuse patient.[facility] the event this information is protected by the Federal Confidentiality of Alcohol and Drug Abuse Patient Records regulations: The Federal rules restrict any use of the information to criminally investigate or prosecute any alcohol or drug abuse patient.[facility] the event this information is protected by the Federal Confidentiality of Alcohol and Drug Abuse Patient Records regulations: The Federal rules restrict any use of the information to criminally investigate or prosecute any alcohol or drug abuse patient.[facility] the event this information is protected by the Federal Confidentiality of Alcohol and Drug Abuse Patient Records regulations: The Federal rules restrict any use of the information to criminally investigate or prosecute any alcohol or drug abuse patient.[facility] the event this information is protected by the Federal Confidentiality of Alcohol and Drug Abuse Patient Records regulations: The Federal rules restrict any use of the information to criminally investigate or prosecute any alcohol or drug abuse patient.[facility] the event this information is protected by the Federal Confidentiality of Alcohol and Drug Abuse Patient Records regulations: The Federal rules restrict any use of the information to criminally investigate or prosecute any alcohol or drug abuse patient.[facility] the event this information is protected by the Federal Confidentiality of Alcohol and Drug Abuse Patient Records regulations: The Federal rules restrict any use of the information to criminally investigate or prosecute any alcohol or drug abuse patient.[facility] the event this information is protected by the Federal Confidentiality of Alcohol and Drug Abuse Patient Records regulations: The Federal rules restrict any use of the information to criminally investigate or prosecute any alcohol or drug abuse patient.[facility] the event this information is protected by the Federal Confidentiality of Alcohol and Drug Abuse Patient Records regulations: The Federal rules restrict any use of the information to criminally investigate or prosecute any alcohol or drug abuse patient.[facility] the event this information is protected by the Federal Confidentiality of Alcohol and Drug Abuse Patient Records regulations: The Federal rules restrict any use of the information to criminally investigate or prosecute any alcohol or drug abuse patient.[facility] the event this information is protected by the Federal Confidentiality of Alcohol and Drug Abuse Patient Records regulations: The Federal rules restrict any use of the information to criminally investigate or prosecute any alcohol or drug abuse patient.[facility] the event this information is protected by the Federal Confidentiality of Alcohol and Drug Abuse Patient Records regulations: The Federal rules restrict any use of the information to criminally investigate or prosecute any alcohol or drug abuse patient.[facility] the event this information is protected by the Federal Confidentiality of Alcohol and Drug Abuse Patient Records regulations: The Federal rules restrict any use of the information to criminally investigate or prosecute any alcohol or drug abuse patient.[facility] Reason for Visit (unrecogniz ed section and content) Reason Comments Yearly Exam Specialty Diagnoses / Procedures Referred By Contac t Referred To Contact Diagnoses Well woman exam with routine gynecological exam Procedures CONSULT TO HOSE TUBING BACKER OFFICE/OUTPATIENT NEW HIGH MDM 60-74 MINUTES Fouzia Amezquita, SPRAY STAINER.[employer]OMAT[employer] [address] [place] [address] Referral ID Status Reason Start Date Expiration Date V isits Requested Visits Authorized [id number] Closed PCP Requested Referral Auto-Generated Referral 03/11/2022 03/11/2023 1 1 Reason Comments Results New Medication Reason Comments Consult [facility] Assessment In P erson Pt Cancelled Same Day Specialty Diagnoses / Procedures Referred By Contac t Referred To Contact Psychiatry / ADULT PSYCHOLOGY Diagnoses 1st eval Procedures NEW PSYL ADULT Fouzia Amezquita, FRANCES.CLIPPER [employer]OMAT[employer] [address] [place] [address] Alicia, Jhon, FIRE EXTINGUISHER REPAIRER [address] [place] [address] Referral ID Status Reason Start Date Expiration Date V isits Requested Visits Authorized [id number] Pending Review 03/18/2022 06/16/2022 1 1 Reason Comments Urinary Frequency frequency and lower back pain x 3-4 days Reason Onset Date Comments Refill Request 07/09/2022 Reason Comments F/U 6 Month Specialty Diagnoses / Procedures Referred By Contac t Referred To Contact Internal Medicine / INTERNAL MEDICINE Diagnoses 6 month follow up Procedures 4C Brad Rivera MD [address] [place] [address] Fouzia Amezquita, SPRAY STAINER.[employer] [address] [place] [address] Referral ID Status Reason Start Date Expiration Date Visits Re quested Visits Authorized [id number] Closed 09/11/2022 11/15/2022 1 1 Reason Comments Knee Pain L knee. Knee popped out of place while playing pool. (uneven floor?) Specialty Diagnoses / Procedures Referred By Contac t Referred To Contact Internal Medicine / INTERNAL MEDICINE Diagnoses Knee pain left knee Well Now follow up Procedures OFFICE/OUTPATIENT ESTABLISHED MOD MDM 30-39 MIN 4C EST Self Fouzia Amzequita, SPRAY STAINER.[employer]OM[employer] [address] [place] [address] Referral ID Status Reason Start Date Expiration Date Visits Re quested Visits Authorized [id number] Closed 09/25/2022 11/15/2022 1 1 Reason Onset Date Comments Refill Request 10/15/2022 Reason Comments Follow Up Specialty Diagnoses / Procedures Referred By Contac t Referred To Contact Internal Medicine / INTERNAL MEDICINE Diagnoses 6 month f/u - new to LDT Procedures 4C EST Fouzia Amezquita, SPRAY STAINER.CLIPPER AUTOMAT[employer] [address] [place] [address] Brad Dolan MD [address] [place] [address] Referral ID Status Reason Start Date Expiration Date Visits Requested Visits Authorized [id number] Denied OON Notification Letter Financial Clearance Required - OON Payor Clearance Not Met - Admin/Fund Raiser/D irector Advise to Postpone/Resched ule or Not Proceed 2 11/15/2022 1 0 Reason Comments Pain, Throat Pt reported bilatera l ear pain, chills, cough x3 days. Specialty Diagnoses / Procedures Referred By Contac t Referred To Contact Family [facility] / [facility] Diagnoses ear pain, sore throat, bodyaches, fever, chills, cough Procedures EST SAME DAY Self Chiara Marley, SPRAY STAINER.TEACHER [address] [place] [address] Referral ID Status Reason Start Date Expiration Date Visits Re quested Visits Authorized [id number] Closed 03/12/2023 11/15/2023 1 1 Reason Comments [...] Procedures EST SAME DAY Self Avril Rhoades, SPRAY STAINER.TEACHER [address] [place] [address] Referral ID Status Reason Start Date Expiration Date Visits Re quested Visits Authorized [id number] Closed 08/24/2023 11/22/2023 1 1 Reason Comments Cough Cough, sinus, HICKS, sn eezing and congestion x 1 day Specialty Diagnoses / Procedures Referred By Contac t Referred To Contact [facility] / [facility] Diagnoses cough, sinus, headache, sneezing and congestion Procedures EST SAME DAY Self Amalia Gerard, SPRAY STAINER.TEACHER [address] [place] [address] Referral ID Status Reason Start Date Expiration Date Visits Re quested Visits Authorized [id number] Closed 09/04/2023 12/03/2023 1 1 Reason Comments Back Pain Mid to lower back pa in x 2 days Reason Comments Rectal Bleeding Reason Comments Patient Question Care Teams (unrecognized sec tion and content) [employer] Business Development Officer Relationship Specialty Start Date End Date Brad Dolan MD [address] [place] [id number] PCP - General Internal Medicine 03/11/22 Sba Business Development Officer Relationship Specialty Start Date End Date Brad Dolan MD [address] [place] [id number] PCP - General Internal Medicine 03/11/22 Sba Business Development Officer Relationship Specialty Start Date End Date Brad Dolan MD [address] [place] [id number] PCP - General Internal Medicine 03/11/22 Sba Business Development Officer Relationship Specialty Start Date End Date Brad Dolan MD [address] [place] [address] PCP - General Internal Medicine 03/11/22 Sba Business Development Officer Relationship Specialty Start Date End Date Brad Dolan MD [address] [place] [address] PCP - General Internal Medicine 03/11/22 Sba Business Development Officer Relationship Specialty Start Date End Date Brad Dolan MD [address] [place] [address] PCP - General Internal Medicine 03/11/22 Sba Business Development Officer Relationship Specialty Start Date End Date Brad Dolan MD [address] [place] [address] PCP - General Internal Medicine 03/11/22 Sba Business Development Officer Relationship Specialty Start Date End Date Brad Dolan MD [address] [place] [address] PCP - General Internal Medicine 03/11/22 Sba Business Development Officer Relationship Specialty Start Date End Date Brad Dolan MD [address] [place] [address] PCP - General Internal Medicine 03/11/22 Sba Business Development Officer Relationship Specialty Start Date End Date Brad Dolan MD [address] [place] [address] PCP - General Internal Medicine 03/11/22 Sba Business Development Officer Relationship Specialty Start Date End Date Brad Dolan MD [address] [place] [address] PCP - General Internal Medicine 03/11/22 Sba Business Development Officer Relationship Specialty Start Date End Date Brad Dolan MD [address] [place] [address] PCP - General Internal Medicine 03/11/22 Sba Business Development Officer Relationship Specialty Start Date End Date Brad Dolan MD [address] [place] [address] PCP - General Internal Medicine 03/11/22 Sba Business Development Officer Relationship Specialty Start Date End Date Brad Dolan MD [address] [place] [address] PCP - General Internal Medicine 03/11/22 Sba Business Development Officer Relationship Specialty Start Date End Date Brad Dolan MD [address] [place] [address] PCP - General Internal Medicine 03/11/22 Sba Business Development Officer Relationship Specialty Start Date End Date Brad Dolan MD [address] [place] [address] PCP - General Internal Medicine 03/11/22 Sba Business Development Officer Relationship Specialty Start Date End Date Brad Dolan MD [address] [facility], [place] [id number] PCP - General Internal Medicine 03/11/22 Sba Business Development Officer Relationship Specialty Start Date End Date Brad Dolan MD [address] [facility], [place] [id number] PCP - General Internal Medicine 03/11/22 Sba Business Development Officer Relationship Specialty Start Date End Date Brad Dolan MD [address] [place], [place] [id number] PCP - General Internal Medicine 03/11/22 INFORMATION [...] BE BASED ON THE PRIMARY CLINICAL RECORDS. [facility] [employer] [facility]. provides no warranty or guarantee of the accuracy or completeness of information in this document.
== END 2023-11-24 06:51 | disposition home or self-care (01) ==
PROVIDERS: Emergency Provider Emergency Medicine; PCP Internal Medicine; Visit Provider Emergency Medicine
DX: G43.909 Migraine, unspecified, not intractable, without status migrainosus (principal); F17.290 Nicotine dependence, other tobacco product, uncomplicated; Z79.899 Other long term (current) drug therapy
CPT/HCPCS: 96361; 96374; 96375; 99283; J7030; A4216

== ENCOUNTER 2023-12-02 06:50 | Day surgery (SDC) | payer OTHER, SELFPAY ==
--- NOTE | 2023-12-01 08:15 | COLBX_PTH ---
PATHOLOGY RESULTS PATIENT: CARLOS SAN LOC: EN U#:[id number] AGE/SX: 33/F ROOM: RE12/02/[address]: Dr. Javier Benoit DO : 1990 BED: DIS: 12/02/2023 SPEC #: [id number] RECD: 12/02/23 11:36 STATUS: LILIANA ALEGRIA #: [id number] SANTOS: 12/01/23 08:[address]: Javier Benoit DEPT: SURGICAL PATHOLOGY RECD BY: Aurea Hoff ENTERED: 12/02/23 11:37 SP TYPE: COLON BX OTHR DR: Dr. Louann Dolan MD Tissues: Ileum, NOS COLON BIOPSY Procedures: Surgery Specimen Level IV HEADER OPERATION: Colonoscopy and biopsies PRE-OP DIAGNOSIS: Lower GI bleeding and diarrhea TISSUE SUBMITTED: A - Terminal ileum, B - Random colon biopsies MICROSCOPIC DIAGNOSIS A. Terminal ileum, biopsy: Active ileitis. B. Colon, random biopsy: No pathologic change. AM:minoo 12/03/23 MICROSCOPIC DESCRIPTION Slides are reviewed. GROSS DESCRIPTION A - Received in fixative is one container labeled with the patient's name and designated terminal ileum. The specimen consists of two irregular fragments of light pedroza soft tissue that in aggregate measure 0.8 x 0.5 x 0.1 cm. The specimen is totally submitted in one cassette. B - Received in fixative is one container labeled with the patient's name and designated random colon biopsy. The specimen consists of multiple irregular fragments of light pedroza soft tissue that in aggregate measure 1.5 x 0.5 x 0.1 cm. The specimen is totally submitted in one cassette. / SJ:minoo 12/02/2023 TC:2 CPT: 21544 x2
[2023-12-02] VITALS (7 sets, daily range): BP systolic 87–101; BP diastolic 49–62; PULSE 70–80; RESP 16–18; TEMP 36.2–36.3; O2SAT 96–98; BMI 30.4
--- OUTSIDE RECORDS SUMMARY | 2023-12-02 06:57 | XMS RPT_ITS | CCD ---
Author Name Unknown Address [address] [place] [address] Organization [facility] Care Team Providers Care Medical Office Receptionist Assistant Name Role Phone Brad Dolan MD Primary [...] sources) SUMAtriptan; Translations: [SUMATRIPTAN] Drug Allergy 10-04-2019 [facility] Medications Current Medications Medication Drug Class(es) Dates [...] 97.11 [degF] Jarrett Carcamo MD Work Phone: [facility] 09-28-2023 10:46-0500 Body weight 77.29 kg Jarrett Carcamo MD Work Phone: [facility] 09-28-2023 10:46-0500 Diastolic blood pressure 72 mm[Hg] Jarrett Carcamo MD Work Phone: [facility] 09-28-2023 10:46-0500 Heart rate 62 /min Jarrett Carcamo MD Work Phone: [facility] 09-28-2023 10:46-0500 Respiratory rate 21 /min Jarrett Carcamo MD Work Phone: [facility] 09-28-2023 10:46-0500 SaO2% (BldA) [Mass fraction] 98 % Jarrett Carcamo MD Work Phone: [facility] 09-28-2023 10:46-0500 Systolic blood pressure 98 mm[Hg] Jarrett Carcamo MD Work Phone: [facility] 09-04-2023 10:03-0400 Body temperature 98.01 [degF] Amalia Gerard APRN.PRODUCTION SHIFT SUPERVISOR Work Phone: [facility] 09-04-2023 10:03-0400 Body weight 77.47 kg Amalia Gerard APRN.PRODUCTION SHIFT SUPERVISOR Work Phone: [facility] 09-04-2023 10:03-0400 Diastolic blood pressure 70 mm[Hg] Amalia Gerard APRN.PRODUCTION SHIFT SUPERVISOR Work Phone: [facility] 09-04-2023 10:03-0400 Heart rate 81 /min Amalia Gerard APRN.PRODUCTION SHIFT SUPERVISOR Work Phone: [facility] 09-04-2023 10:03-0400 Respiratory rate 18 /min Amalia Gerard APRN.PRODUCTION SHIFT SUPERVISOR Work Phone: [facility] 09-04-2023 10:03-0400 SaO2% (BldA) [Mass fraction] 97 % Amalia Gerard APRN.PRODUCTION SHIFT SUPERVISOR Work Phone: [facility] 09-04-2023 10:03-0400 Systolic blood pressure 104 mm[Hg] Amalia Gerard APRN.PRODUCTION SHIFT SUPERVISOR Work Phone: [facility] 08-24-2023 09:26-0400 Body temperature 96.91 [degF] Avril Rhoades APRN.PRODUCTION SHIFT SUPERVISOR Work Phone: [facility] 08-24-2023 09:26-0400 Body weight 78.47 kg Avril Rhoades APRN.PRODUCTION SHIFT SUPERVISOR Work Phone: [facility] 08-24-2023 09:26-0400 Diastolic blood pressure 72 mm[Hg] Avril Rhoades APRN.PRODUCTION SHIFT SUPERVISOR Work Phone: [facility] 08-24-2023 09:26-0400 Heart rate 88 /min Avril Pendlebury TECHNICAL MANAGER CHEMICAL PLANT.PRODUCTION SHIFT SUPERVISOR Work Phone: [facility] 08-24-2023 09:26-0400 Respiratory rate 16 /min Avril Pendlebury TECHNICAL MANAGER CHEMICAL PLANT.PRODUCTION SHIFT SUPERVISOR Work Phone: [facility] 08-24-2023 09:26-0400 SaO2% (BldA) [Mass fraction] 98 % Avril Pendduglasbury TECHNICAL MANAGER CHEMICAL PLANT.PRODUCTION SHIFT SUPERVISOR Work Phone: [facility] 08-24-2023 09:26-0400 Systolic blood pressure 126 mm[Hg] Avril Pendlebury TECHNICAL MANAGER CHEMICAL PLANT.PRODUCTION SHIFT SUPERVISOR Work Phone: [facility] 05-12-2023 07:15-0400 Body temperature 98.6 [degF] Isela Praisler-Wood TECHNICAL MANAGER CHEMICAL PLANT.PRODUCTION SHIFT SUPERVISOR Work Phone: [facility] 05-12-2023 07:15-0400 Body weight 79.38 kg Isela Praisler-Wood TECHNICAL MANAGER CHEMICAL PLANT.PRODUCTION SHIFT SUPERVISOR Work Phone: [facility] 05-12-2023 07:15-0400 Diastolic blood pressure 82 mm[Hg] Isela Praisler-Wood TECHNICAL MANAGER CHEMICAL PLANT.PRODUCTION SHIFT SUPERVISOR Work Phone: [facility] 05-12-2023 07:15-0400 Heart rate 76 /min Isela Praisler-Wood TECHNICAL MANAGER CHEMICAL PLANT.PRODUCTION SHIFT SUPERVISOR Work Phone: [facility] 05-12-2023 07:15-0400 Respiratory rate 16 /min Isela Praisler-Wood TECHNICAL MANAGER CHEMICAL PLANT.PRODUCTION SHIFT SUPERVISOR Work Phone: [facility] 05-12-2023 07:15-0400 SaO2% (BldA) [Mass fraction] 98 % Isela Praisler-Wood TECHNICAL MANAGER CHEMICAL PLANT.PRODUCTION SHIFT SUPERVISOR Work Phone: [facility] 05-12-2023 07:15-0400 Systolic blood pressure 118 mm[Hg] Isela Praisler-Wood TECHNICAL MANAGER CHEMICAL PLANT.PRODUCTION SHIFT SUPERVISOR Work Phone: [facility] 03-12-2023 16:05-0400 Body temperature 98.01 [degF] Chiara Donell TECHNICAL MANAGER CHEMICAL PLANT.PRODUCTION SHIFT SUPERVISOR Work Phone: [facility] 03-12-2023 16:05-0400 Body weight 77.66 kg Chiara Donell TECHNICAL MANAGER CHEMICAL PLANT.PRODUCTION SHIFT SUPERVISOR Work Phone: [facility] 03-12-2023 16:05-0400 Diastolic blood pressure 66 mm[Hg] Chiara Donell TECHNICAL MANAGER CHEMICAL PLANT.PRODUCTION SHIFT SUPERVISOR Work Phone: [facility] 03-12-2023 16:05-0400 Heart rate 101 /min Chiara Donell TECHNICAL MANAGER CHEMICAL PLANT.PRODUCTION SHIFT SUPERVISOR Work Phone: [facility] 03-12-2023 16:05-0400 Respiratory rate 18 /min Chiara Donell TECHNICAL MANAGER [employer] PLANT.PRODUCTION SHIFT SUPERVISOR Work Phone: [facility] 03-12-2023 16:05-0400 SaO2% (BldA) [Mass fraction] 97 % Chiara Donell TECHNICAL MANAGER [employer]MICAL PLANT.PRODUCTION SHIFT SUPERVISOR Work Phone: [facility] 03-12-2023 16:05-0400 Systolic blood pressure 122 mm[Hg] Chiara Donell TECHNICAL MANAGER [employer]MICAL PLANT.PRODUCTION SHIFT SUPERVISOR Work Phone: [facility] 09-25-2022 10:37-0500 Body weight 82.56 kg Fouzia Amezquita TECHNICAL MANAGER [employer]MICAL PLANT.LIVESTOCK SALES REPRESENTATIVE Work Phone: [facility] 09-25-2022 10:37-0500 Diastolic blood pressure 58 mm[Hg] Fouzia Amezquita TECHNICAL MANAGER [employer]ICAL PLANT.LIVESTOCK SALES REPRESENTATIVE Work Phone: [facility] 09-25-2022 10:37-0500 Heart rate 65 /min Fouzia Amezquita TECHNICAL MANAGER [employer]ANT.LIVESTOCK SALES REPRESENTATIVE Work Phone: [facility] 09-25-2022 10:37-0500 SaO2% (BldA) [Mass fraction] 98 % Fouzia Amezquita TECHNICAL MANAGER [employer] PLANT.LIVESTOCK SALES REPRESENTATIVE Work Phone: [facility] 09-25-2022 10:37-0500 Systolic blood pressure 94 mm[Hg] Fouzia Amezquita TECHNICAL MANAGER [employer]MICAL PLANT.LIVESTOCK SALES REPRESENTATIVE Work Phone: [facility] 09-11-2022 09:14-0400 Body weight 81.65 kg Fouzia Amezquita TECHNICAL MANAGER [employer]ICAL PLANT.LIVESTOCK SALES REPRESENTATIVE Work Phone: [facility] 09-11-2022 09:14-0400 Diastolic blood pressure 62 mm[Hg] Fouzia Amezquita TECHNICAL MANAGER [employer]MICAL PLANT.LIVESTOCK SALES REPRESENTATIVE Work Phone: [facility] 09-11-2022 09:14-0400 Heart rate 68 /min Fouzia Amezquita TECHNICAL MANAGER [employer]MICAL PLANT.LIVESTOCK SALES REPRESENTATIVE Work Phone: [facility] 09-11-2022 09:14-0400 Respiratory rate 16 /min Fouzia Amezquita TECHNICAL MANAGER [employer]MICAL PLANT.LIVESTOCK SALES REPRESENTATIVE Work Phone: [facility] 09-11-2022 09:14-0400 SaO2% (BldA) [Mass fraction] 98 % Fouzia Amezquita TECHNICAL MANAGER [employer] PLANT.LIVESTOCK SALES REPRESENTATIVE Work Phone: [facility] 09-11-2022 09:14-0400 Systolic blood pressure 94 mm[Hg] Fouzia Amezquita TECHNICAL MANAGER [employer]MICAL PLANT.LIVESTOCK SALES REPRESENTATIVE Work Phone: [facility] 06-11-2022 10:49-0400 Body temperature 97.2 [degF] Jarrett Carcamo MD Work Phone: [facility] 06-11-2022 10:49-0400 Body weight 86.55 kg Jarrett Carcamo MD Work Phone: [facility] 06-11-2022 10:49-0400 Diastolic blood pressure 82 mm[Hg] Jarrett Carcamo MD Work Phone: [facility] 06-11-2022 10:49-0400 Heart rate 62 /min Jarrett Carcamo MD Work Phone: [facility] 06-11-2022 10:49-0400 Respiratory rate 16 /min Jarrett Carcamo MD Work Phone: [facility] 06-11-2022 10:49-0400 SaO2% (BldA) [Mass fraction] 97 % Jarrett Carcamo MD Work Phone: [facility] 06-11-2022 10:49-0400 Systolic blood pressure 120 mm[Hg] Jarrett Carcamo MD Work Phone: [facility] 03-13-2022 07:54-0400 Body height 160 cm Katelyn Hoff TECHNICAL MANAGER CHEMICAL PLANT.PRODUCTION SHIFT SUPERVISOR Work Phone: [facility] 03-13-2022 07:54-0400 Body weight 84.19 kg Katelyn Hoff TECHNICAL MANAGER CHEMICAL PLANT.PRODUCTION SHIFT SUPERVISOR Work Phone: [facility] 03-13-2022 07:54-0400 Diastolic blood pressure 60 mm[Hg] Katelyn Hoff TECHNICAL MANAGER CHEMICAL PLANT.PRODUCTION SHIFT SUPERVISOR Work Phone: [facility] 03-13-2022 07:54-0400 Systolic blood pressure 90 mm[Hg] Katelyn Hoff TECHNICAL MANAGER CHEMICAL PLANT.PRODUCTION SHIFT SUPERVISOR Work Phone: [facility] 03-11-2022 07:10-0400 Body height 161.9 cm Fouzia Amezquita TECHNICAL MANAGER CHEMICAL PLANT.LIVESTOCK SALES REPRESENTATIVE Work Phone: [facility] 03-11-2022 07:10-0400 Body weight 83.01 kg Fouzia Amezquita TECHNICAL MANAGER CHEMICAL PLANT.LIVESTOCK SALES REPRESENTATIVE Work Phone: [facility] 03-11-2022 07:10-0400 Diastolic blood pressure 72 mm[Hg] Fouzia Amezquita TECHNICAL MANAGER CHEMICAL PLANT.LIVESTOCK SALES REPRESENTATIVE Work Phone: [facility] 03-11-2022 07:10-0400 Heart rate 68 /min Fouzia Amezquita TECHNICAL MANAGER CHEMICAL PLANT.LIVESTOCK SALES REPRESENTATIVE Work Phone: [facility] 03-11-2022 07:10-0400 Respiratory rate 16 /min Fouzia Amezquita TECHNICAL MANAGER CHEMICAL PLANT.LIVESTOCK SALES REPRESENTATIVE Work Phone: [facility] 03-11-2022 07:10-0400 Systolic blood pressure 104 mm[Hg] Fouzia Amezquita TECHNICAL MANAGER CHEMICAL PLANT.LIVESTOCK SALES REPRESENTATIVE Work Phone: [facility] Encounters Encounter Date Encounter Type Care Provider Facility Start: 10-05-2023 ambulatory Brad salcedo MD Work Phone: Internal [facility] Procedures Date Procedure Procedure Detail Performing Clinician Start: 03-12-2023 STREP A MOLECULAR (POC) Amalia Gerard APRN.PRODUCTION SHIFT SUPERVISOR Work Phone: Start: 06-11-2022 Urnls dip stick/tabl et rgnt auto w/o microscopy Hi João TECHNICAL MANAGER CHEMICAL PLANT.PRODUCTION SHIFT SUPERVISOR Work Phone: Start: 03-11-2022 Adult depression screening assessment Fouzia Amezquita TECHNICAL MANAGER CHEMICAL PLANT.LIVESTOCK SALES REPRESENTATIVE Work Phone: Plan of Treatment Date Care Activity Detail Author Start: 03-13-2027 HPV TESTING HPV TESTING [facility] Start: 03-13-2027 PAP TESTING PAP TESTING [facility] Start: 05-15-2024 Influenza vaccination Influenza Vacc ine (#1) [facility] Immunizations Immunization Date Immunization Notes Care Provider Fa cility 05-20-2021 COVID-19 vaccine (ABDI) Fuozia Amezquita TECHNICAL MANAGER CHEMICAL PLANT.LIVESTOCK SALES REPRESENTATIVE Work Phone: [facility] Work Phone: Payers Date Payer Category Payer Unknown [id number] 2021 Unknown [employer] PPO [id number] 2021-Present [phone] [address] [place] [address] PPO [id number] 2021 Unknown [id number] 2021 Unknown [facility] [id number] 2021-Present [phone] [address] [place] [address] PPO [id number] Social History Date Type Detail Facility Start: 10-16-2021 End: 09-11-2022 Tobacco smoking status NHIS Never smoked tobacco [facility] Start: 10-16-2021 End: 09-11-2022 Tobacco use and exposure Smokeless tobacco non-user [facility] Start: 1990 Sex Assigned At Not on file [facility] Start: 03-01-2022 End: 09-25-2022 Exposure to SARS-CoV-2 (event) Not sure [facility] Work Phone: Start: 03-13-2022 End: 09-28-2023 Alcohol intake Current drinker of alcohol (finding) [facility] Start: 03-13-2022 History SDOH Alcohol Comment socially [facility] Start: 09-11-2022 End: 11-07-2022 History SDOH Alcohol Frequency 2 [facility] Start: 09-11-2022 End: 11-07-2022 History SDOH Alcohol Std Drinks 1 [facility] Start: 09-11-2022 End: 11-07-2022 History SDOH Social Connections Mu-Ism 3 [facility] Start: 09-11-2022 History SDOH Social Connections Meetings 98 [facility] Start: 09-11-2022 End: 11-07-2022 History SDOH Physical Activity DPW 5 [facility] Start: 09-11-2022 History SDOH Physica l Activity MPS 0 [facility] Start: 11-07-2022 History SDOH Financial 4 [facility] Start: 11-07-2022 End: 12-13-2022 History of Social function [facility] Start: 11-07-2022 End: 12-13-2022 Social connection and isolation panel [facility] Do you belong to any clubs or organizations such as religion groups, unions, fraternal or athletic groups, or school groups? No [facility] Are you now , , , , never or living with a partner? [facility] How often to you hav e a drink containing alcohol? Monthly or less [facility] How many standard dr inks containing alcohol do you have on a typical day? 1 or 2 [facility] How often do you hav e 6 or more drinks on 1 occasion? Less than monthly [facility] How hard is it for y ou to pay for the very basics like food, housing, medical care, and heating Not very hard [facility] Adult Depression Scr eening Assessment 4 [facility] Do you feel stress - tense, restless, nervous, or anxious, or unable to sleep at night because your mind is troubled all the time - these days [OSQ] Very much [facility] (I/We) worried whefred er (my/our) food would run out before (I/we) got money to buy more. Never true [facility] Clinical Notes 03-11-2022 to 10-14-2023 Telephone Encounter [...] she is okay with going outside of [place] to [facility], can refer to GI in [facility] or [place], or other [facility] site that she prefers. With regards to [...] Please advise patient. documented in this encounter [facility] 10-05-2023 Miscellaneous Notes Patient call in for [...] Has been getting dizzy. Protocols used: Rectal Wfelrkuf-[id number]-VT documented in this encounter [facility] 09-28-2023 Note HNO ID: [id number] Author: Issa Bhatti APRN.PRODUCTION SHIFT SUPERVISOR Service: ? Author Type: Nurse Practitioner Type: [...] 18 Wt 170 lb (77.1kg) SpO2 97% [facility] 09/26/2023 Physical Exam Vitals and nursing [...] necessary edited, so (more content not included)... [facility] 09-28-2023 Note HNO ID: [id number] Author: Jarrett Carcamo MD Service: ? Author [...] walked to appointment desk. Jarrett Carcamo MD [facility] 09-28-2023 History of Presen t illness [...] Jarrett Carcamo MD documented in this encounter [facility] 09-04-2023 Note HNO ID: [id number] Author: Amalia Gerard APRN.DAR Service: ? Author [...] Patient agreeable to treatment plan. Amalia Gerard APRN.[facility] 09-04-2023 History of Presen t illness Narrative [...] Amalia Gerard APRN.DAR documented in this encounter [facility] 08-24-2023 Note HNO ID: [id number] Author: Elle Michaud RT(R) Service: Radiology Author [...] RT Michael(R) August 24, 2023 9:56 AM [facility] 08-24-2023 Miscellaneous Notes Patient notified of results as listed below, verbalized understanding of instructions given. Margot Gross MA X-rays normal. Continue care plan as discussed. vAril Rhoades APRN.CNP documented in this encounter [facility] 08-24-2023 Note HNO ID: [id number] Author: Avril Rhoades APRN.DAR Service: ? Author [...] of care. This note was generated using Consider[employer] software. It may contain errors in wording, punctuation, or spelling. Avril Rhoades APRN.[facility] 08-24-2023 History of Presen t illness Narrative [...] of care. This note was generated using [employer] software. It may contain errors in wording, punctuation, or spelling. Avril Rhoades APRN.DAR documented in this encounter [facility] 07-01-2023 Miscellaneous Notes Last office visit: 11/07/22 [...] Angela Stephenson LPN documented in this encounter [facility] 06-25-2023 Miscellaneous Notes Last office visit: 11/07/2022 No future appt Dahiana Arriaga LPN documented in this encounter [facility] 05-13-2023 Miscellaneous Notes Spoke with pt and information listed below given. Pt verbalizes understanding. Marli Cui LPN Left message for patient to return call. Maria E Ashton Negative for flu and covid please notify thank you documented in this encounter [facility] 05-12-2023 Note HNO ID: [id number] Author: Isela Gonzalez APRN.DAR Service: ? Author [...] Discussed expected course of illness Isela Gonzalez APRN.[facility] 05-12-2023 History of Presen t illness Narrative [...] Discussed expected course of illness Isela Gonzalez APRN.PRODUCTION SHIFT SUPERVISOR documented in this encounter [facility] 05-12-2023 Instructions Isela Gonzalez APRN.PRODUCTION SHIFT SUPERVISOR - 05/12/2023 7:29 AM EDT ASSESSMENT/PLAN: 1. [...] Discussed expected course of illness Isela Gonzalez APRN.PRODUCTION SHIFT SUPERVISOR Treatment for Viral Upper Respiratory Tract Infections [...] fluids help open respiratory and sinus passages [place] Nasal [place] may offer relief of nasal and head [...] rather than better documented in this encounter [facility] 04-27-2023 Note HNO ID: [id number] Author: CHIVO Umana Service: ? Author Type: Physician Small Equipment Operator Type: Progress Notes Filed: 04/27/2023 11:54 AM Note Text: This note was created using X[employer]. Subjective Jordyn Araujo is a 33 year [...] detail warranting prompt ER evaluation. CHIVO Umana [facility] 03-12-2023 Note HNO ID: [id number] Author: Chiara Marley APRN.PRODUCTION SHIFT SUPERVISOR Service: ? Author Type: Nurse Practitioner Type: Progress Notes Filed: 03/12/2023 4:29 PM Note Text: Subjective The history is provided by the patient. No professor of languages was used. HPI Jordyn Araujo is a [...] have confirmed and edited as necessary, the [facility] Review of Systems Constitutional: Positive for [...] warranting prompt ER evaluation. Chiara Marley APRN.CNP [facility] 03-12-2023 Instructions Chiara Marley APRN.CNP - [...] inability to swallow. documented in this encounter [facility] 03-12-2023 History of Presen t illness Narrative Subjective The history is provided by the patient. No professor of languages was used. HPI Jordyn Araujo is a [...] have confirmed and edited as necessary, the [facility] Review of Systems Constitutional: Positive for [...] Chiara Marley APRN.DAR documented in this encounter [facility] 11-07-2022 Note HNO ID: [id number] Author: Brad Dolan MD Service: ? Author Type: Physician Type: Progress Notes Filed: 11/07/2022 5:43 PM Note Text: VIRTUAL VISIT PROGRESS NOTE This is a virtual visit using [employer] video visit. It required patient-provider interaction for [...] file for this visit. Brad Dolan MD [facility] 11-07-2022 History of Presen t illness Narrative VIRTUAL VISIT PROGRESS NOTE This is a virtual visit using [employer] video visit. It required patient-provider interaction for [...] Brad Dolan MD documented in this encounter [facility] 11-07-2022 Miscellaneous Notes Patient switched to video documented in this encounter [facility] 10-15-2022 Miscellaneous Notes Last office visit: 09/25/22 Next appointment scheduled: 11/07/22 Patient phones requesting refills as follows: Requested Prescriptions Pending Prescriptions Disp Refills FLUoxetine (PROZAC) 40 mg capsule 90 capsule 3 Sig: Take 1 capsule by mouth once daily. Please review and advise. Angela Stephenson LPN documented in this encounter [facility] 09-25-2022 History of Presen t illness Narrative [...] now. - CONSULT TO ORTHOPAEDICS Fouzia Amezquita APRN.LIVESTOCK SALES REPRESENTATIVE Medical Decision Making: Problems: Moderate: New problem with uncertain prognosis Risk: Moderate: Drug management Medical Decision Making Level: 4 - Moderate documented in this encounter [facility] 09-11-2022 Instructions Fouzia Amezquita APRN.CNS - 09/11/2022 9:32 AM EDT Check to see if your insurance covers Tdap vaccine and what location to get the vaccine Return here or go to pharmacy for Covid 19 booster documented in this encounter [facility] 09-11-2022 History of Presen t illness Narrative [...] care. Presents today to establish care with [facility] provider. Previous PCP: Dr Aelksandr Mares [facility]. Last seen: Jul 2021 Labwork: about Jul 2021, [place] Outside records:none available at the time of her visit. CREW SUPERVISOR: [place] - [facility] Notes seen at [facility] ER for back pain since moving here 6 mos ago, 3-4 times. 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 States she took phentermine for weight loss and for gag reflex in the past per her previous PCP in [place]. History of PCOS, not currently taking metformin. [...] since that time. Has been seen at [facility] ER for this since moving to [...] HEPLISAV B (HEPATITIS B, ADJUVANT, ADULT) - [employer] COVID-19 BIVALENT BOOSTER VACCINE, AGE 12+ YR [...] if needed in the interval Fouzia Amezquita APRN.LIVESTOCK SALES REPRESENTATIVE Medical Decision Making: Problems: Low: Acute, uncomplicated illness or injury and Stable chronic illness Risk: Moderate: Drug management Medical Decision Making Level: 3 - Low documented in this encounter [facility] 07-09-2022 Miscellaneous Notes Okayed Patient has been [...] Meg Joyner LPN documented in this encounter [facility] 06-11-2022 History of Presen t illness Narrative [...] Jarrett Carcamo MD documented in this encounter [facility] 03-18-2022 History of Presen t illness Narrative [...] ltr KASSY Parks documented in this encounter [facility] 03-14-2022 Miscellaneous Notes Patient notified. Kaitlin Sales RN The following approved medication requests have been transmitted electronically. Signed Prescriptions Disp Refills metroNIDAZOLE (FLAGYL) 500 mg tablet 14 tablet 0 Sig: Take 1 tablet by mouth twice daily for 7 days. Authorizing Provider: KATELYN HOFF Pharmacy Information Pharmacy Address Telephone [facility]/pharmacy #[id number] [place] [address] Left message to call office. [...] Katelyn Hoff APRN.DAR documented in this encounter [facility] 03-13-2022 History of Presen t illness Narrative Jordyn is a 32 year old who presents for an annual gynecologic exam with complaints of increase in vaginal discharge for several months. No itching, irritation or odor. Has been told that she has high testosterone but takes no medication. No history of PCOS that she is aware of. Moved to [place] from [place] 6 months ago due to 's job. Menses: cycles every 30-60 days and 4-5 days of flow. + cramping. Does not keep track of period but knows she has one each month at varying times. 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 HPV vaccine: No Last Pap: 5+ years ago in [facility] - thinks it was normal HPV: negative History of abnormal pap: Yes, had biopsy x 2, unsure of other procedures Last mammogram: never Sexually active: Yes History of STDS: ?HPV Patient concerns for STD exposure: No. Time with current partner: 10 years Pain with intercourse: No Postcoital bleeding: No OB History T2 L2 SAB0 IAB0 Ectopic0 Multiple0 Live Births0 Client Reporting Associate History LMP: 03/08/2022, Having periods Age at Menarche: Age at First : Age at Menopause: Client Reporting Associate History Comments: Sexual Activity: Yes; Male Contraception: [...] external genitalia normal, normal Bartholin's glands, urethra, Pony's glands, no vulvar lesions, no cervical lesions, [...] Katelyn Hoff APRN.DAR documented in this encounter [facility] 03-11-2022 History of Presen t illness Narrative SUBJECTIVE: HEPATITIS C SCREENING Never done HIV SCREENING Never done DTAP,TDAP,TD(1 - Tdap) Never done PAP TESTING Never done HPV TESTING Never done COVID-19 VACCINE(2 - Booster for Abdi series) due on 07/15/2021 HPI Jordyn Araujo is a 32 year old female. Presents today for physical exam, to establish care. Presents today to establish care with [facility] provider. Previous PCP: Dr Aleksandr [facility]. Last seen: Jul 2021 Labwork: about Jul 2021, [place] Outside records:none available at the time of her visit. CREW SUPERVISOR: [place] [facility] Notes seen at [facility] ER for back pain since moving here 6 mos ago, 3-4 times. 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 States she took phentermine for weight loss and for gag reflex in the past per her previous PCP in [place]. History of PCOS, not currently taking metformin. [...] since that time. Has been seen at [facility] ER for this since moving to [...] ICD9: V72.31, ICD10: Z01.419 - CONSULT TO CREW SUPERVISOR 4. Screening for HIV (human immunodeficiency virus) [...] 4 - Moderate documented in this encounter [facility] Diagnosis Encounter for gynecological examination (general) (routine) without abnormal findings- Primary Vaginal discharge Leukorrhea, not specified as infective Screening for cervical cancer Screening for malignant neoplasm of the cervix Encounter for screening for human papillomavirus (HPV) Special screening examination for human papillomavirus (HPV) [facility] Diagnosis BV (bacterial vaginosis)- Primary Vaginitis and vulvovaginitis, unspecified [facility] Diagnosis No-show for appointment- Primary [facility] Diagnosis Acute midline low back pain without sciatica- Primary Urinary frequency [facility] Diagnosis Bilateral wrist pain- Primary Pain [...] depression Dysthymic disorder [facility] Diagnosis Injury of left knee, subsequent encounter- Primary Acute pain of left knee documented in this encounter [facility] note* Diagnosis Anxiety and depression- Primary Dysthymic disorder Missed periods Absence of menstruation documented in this encounter [facility] note* Diagnosis Sore throat- Primary Acute pharyngitis Strep throat Streptococcal sore throat documented in this encounter [facility] note* Diagnosis Viral URI with cough- Primary Acute upper respiratory infections of unspecified site Nausea and vomiting, unspecified vomiting type documented in this encounter [facility] note* Diagnosis Pain of right hip- Primary [facility]* Diagnosis URI, acute- Primary Acute upper respiratory infections of unspecified site documented in this encounter [facility] note* Diagnosis Acute midline low back pain without sciatica- Primary Dizziness Dizziness and giddiness Nausea and vomiting, unspecified vomiting type documented in this encounter [facility] note* Diagnosis Nausea- Primary Nausea alone [facility] Diagnostic Procedure Only (Urgent) - Closed Specialty Diagnoses / Procedures Referred By George matta Referred To Contact XR IMAGING Diagnoses Pain of right hip Procedures XR HIP GENERAL 3V PELV/AP/LAT RIGHT RADEX HIP UNILATERAL WITH PELVIS 2-3 VIEWS Avril Rhoades APRN.PRODUCTION SHIFT SUPERVISOR [address] [address] [place] [address] Referral ID Status Reason Start Date Expiration Date V isits Requested Visits Authorized [id number] Closed Auto-Generated Referral Clearance Not Met -Financial Clearance Bypassed 08/24/2023 09/22/2024 1 1 [facility] Reason for Referral Specialty Diagnoses / Procedures Referred By George matta Referred To Contact [facility] Diagnoses Chronic right-sided low back pain with right-sided sciatica Procedures CONSULT TO PHYSICAL THERAPY PHYSICAL THERAPY EVALUATION HIGH COMPLEX 45 MINS Fouzia Amezquita APRN.LIVESTOCK SALES REPRESENTATIVE [address] [place] [address] [facility] [address] [place] [address] Referral ID Status Reason Start Date Expiration Date Visits Requested Visits Authorized [id number] Pending Review Auto-Generat ed Referral 03/11/2022 03/11/2023 1 1 Specialty Diagnoses / Procedures Referred By Contac t Referred To Contact Diagnoses Well woman exam with routine gynecological exam Procedures CONSULT TO CREW SUPERVISOR OFFICE/OUTPATIENT [facility] 60-74 MINUTES Fouzia Amezquita, TECHNICAL MANAGER [employer]MICAL PLANT.LIVESTOCK SALES REPRESENTATIVE [address] [place] [address] Referral ID Status Reason Start Date Expiration Date Visits Requested Visits Authorized [id number] Authorized PCP Requested Referral Auto-Generate d Referral 03/11/2022 03/11/2023 1 1 Specialty Diagnoses / Procedures Referred By Contac t Referred To Contact Orthopedics Diagnoses Injury of left knee, subsequent encounter Acute pain of left knee Procedures CONSULT TO ORTHOPAEDICS OFFICE/OUTPATIENT [facility] 60-74 MINUTES Fouzia Amezquita APRN.LIVESTOCK SALES REPRESENTATIVE [address] [place] [address] Referral ID Status Reason Start Date Expiration Date Visits Requested Visits Authorized [id number] Pending Review PCP Requested Referral 2 09/25/2023 [...] or prosecute any alcohol or drug abuse patient.[facility] the event this information is protected by the Federal Confidentiality of Alcohol and Drug Abuse Patient Records regulations: The Federal rules restrict any use of the information to criminally investigate or prosecute any alcohol or drug abuse patient.[facility] the event this information is protected by the Federal Confidentiality of Alcohol and Drug Abuse Patient Records regulations: The Federal rules restrict any use of the information to criminally investigate or prosecute any alcohol or drug abuse patient.[facility] the event this information is protected by the Federal Confidentiality of Alcohol and Drug Abuse Patient Records regulations: The Federal rules restrict any use of the information to criminally investigate or prosecute any alcohol or drug abuse patient.[facility] the event this information is protected by the Federal Confidentiality of Alcohol and Drug Abuse Patient Records regulations: The Federal rules restrict any use of the information to criminally investigate or prosecute any alcohol or drug abuse patient.[facility] the event this information is protected by the Federal Confidentiality of Alcohol and Drug Abuse Patient Records regulations: The Federal rules restrict any use of the information to criminally investigate or prosecute any alcohol or drug abuse patient.[facility] the event this information is protected by the Federal Confidentiality of Alcohol and Drug Abuse Patient Records regulations: The Federal rules restrict any use of the information to criminally investigate or prosecute any alcohol or drug abuse patient.[facility] the event this information is protected by the Federal Confidentiality of Alcohol and Drug Abuse Patient Records regulations: The Federal rules restrict any use of the information to criminally investigate or prosecute any alcohol or drug abuse patient.[facility] the event this information is protected by the Federal Confidentiality of Alcohol and Drug Abuse Patient Records regulations: The Federal rules restrict any use of the information to criminally investigate or prosecute any alcohol or drug abuse patient.[facility] the event this information is protected by the Federal Confidentiality of Alcohol and Drug Abuse Patient Records regulations: The Federal rules restrict any use of the information to criminally investigate or prosecute any alcohol or drug abuse patient.[facility] the event this information is protected by the Federal Confidentiality of Alcohol and Drug Abuse Patient Records regulations: The Federal rules restrict any use of the information to criminally investigate or prosecute any alcohol or drug abuse patient.[facility] the event this information is protected by the Federal Confidentiality of Alcohol and Drug Abuse Patient Records regulations: The Federal rules restrict any use of the information to criminally investigate or prosecute any alcohol or drug abuse patient.[facility] the event this information is protected by the Federal Confidentiality of Alcohol and Drug Abuse Patient Records regulations: The Federal rules restrict any use of the information to criminally investigate or prosecute any alcohol or drug abuse patient.[facility] the event this information is protected by the Federal Confidentiality of Alcohol and Drug Abuse Patient Records regulations: The Federal rules restrict any use of the information to criminally investigate or prosecute any alcohol or drug abuse patient.[facility] Hospital[facility] the event this information is protected by the Federal Confidentiality of Alcohol and Drug Abuse Patient Records regulations: The Federal rules restrict any use of the information to criminally investigate or prosecute any alcohol or drug abuse patient.[facility] Hospital[facility] the event this information is protected by the Federal Confidentiality of Alcohol and Drug Abuse Patient Records regulations: The Federal rules restrict any use of the information to criminally investigate or prosecute any alcohol or drug abuse patient.[facility] the event this information is protected by the Federal Confidentiality of Alcohol and Drug Abuse Patient Records regulations: The Federal rules restrict any use of the information to criminally investigate or prosecute any alcohol or drug abuse patient.[facility] the event this information is protected by the Federal Confidentiality of Alcohol and Drug Abuse Patient Records regulations: The Federal rules restrict any use of the information to criminally investigate or prosecute any alcohol or drug abuse patient.[facility] the event this information is protected by the Federal Confidentiality of Alcohol and Drug Abuse Patient Records regulations: The Federal rules restrict any use of the information to criminally investigate or prosecute any alcohol or drug abuse patient.[facility] Hospital[facility] the event this information is protected by the Federal Confidentiality of Alcohol and Drug Abuse Patient Records regulations: The Federal rules restrict any use of the information to criminally investigate or prosecute any alcohol or drug abuse patient.[facility] Hospital[facility] the event this information is protected by the Federal Confidentiality of Alcohol and Drug Abuse Patient Records regulations: The Federal rules restrict any use of the information to criminally investigate or prosecute any alcohol or drug abuse patient.[facility] the event this information is protected by the Federal Confidentiality of Alcohol and Drug Abuse Patient Records regulations: The Federal rules restrict any use of the information to criminally investigate or prosecute any alcohol or drug abuse patient.[facility] Hospital[facility] the event this information is protected by the Federal Confidentiality of Alcohol and Drug Abuse Patient Records regulations: The Federal rules restrict any use of the information to criminally investigate or prosecute any alcohol or drug abuse patient.[facility] Reason for Visit (unrecogniz ed section and content) Reason Comments Yearly Exam Specialty Diagnoses / Procedures Referred By Contac t Referred To Contact Diagnoses Well woman exam with routine gynecological exam Procedures CONSULT TO CREW SUPERVISOR OFFICE/OUTPATIENT NEW HIGH MDM 60-74 MINUTES Fouzia Amezquita, TECHNICAL MANAGER [employer]MICAL PLANT.LIVESTOCK SALES REPRESENTATIVE [address] [place] [address] Referral ID Status Reason Start Date Expiration Date V isits Requested Visits Authorized [id number] Closed PCP Requested Referral Auto-Generated Referral 03/11/2022 03/11/2023 1 1 Reason Comments Results New Medication Reason Comments Consult [facility] Assessment In P erson Pt Cancelled Same Day Specialty Diagnoses / Procedures Referred By Contac t Referred To Contact Psychiatry / ADULT PSYCHOLOGY Diagnoses 1st eval Procedures NEW PSYL ADULT Fouzia Amezquita, FRANCES.LIVESTOCK SALES REPRESENTATIVE [address] [place] [address] Alicia, Jhon, INFRASTRUCTURE SOLUTIONS ARCHITECT [address] [place] [address] Referral ID Status Reason Start Date Expiration Date V isits Requested Visits Authorized [id number] Pending Review 03/18/2022 06/16/2022 1 1 Reason Comments Urinary Frequency frequency and lower back pain x 3-4 days Reason Onset Date Comments Refill Request 07/09/2022 Reason Comments F/U 6 Month Specialty Diagnoses / Procedures Referred By Contac t Referred To Contact Internal Medicine / INTERNAL MEDICINE Diagnoses 6 month follow up Procedures 4C Brad Rivera MD [address] [place] [address] Fouzia Amezquita, TECHNICAL MANAGER [employer]MICAL PLANT.LIVESTOCK SALES REPRESENTATIVE [address] [place] [address] Referral ID Status Reason Start Date Expiration Date Visits Re quested Visits Authorized [id number] Closed 09/11/2022 11/15/2022 1 1 Reason Comments Knee Pain L knee. Knee popped out of place while playing pool. (uneven floor?) Specialty Diagnoses / Procedures Referred By Contac t Referred To Contact Internal Medicine / INTERNAL MEDICINE Diagnoses Knee pain left knee Well Now follow up Procedures OFFICE/OUTPATIENT ESTABLISHED MOD MDM 30-39 MIN 4C EST Self Fouzia Amezquita, TECHNICAL MANAGER CHEMICAL PLANT.LIVESTOCK SALES REPRESENTATIVE [address] [place] [address] Referral ID Status Reason Start Date Expiration Date Visits Re quested Visits Authorized [id number] Closed 09/25/2022 11/15/2022 1 1 Reason Onset Date Comments Refill Request 10/15/2022 Reason Comments Follow Up Specialty Diagnoses / Procedures Referred By Contac t Referred To Contact Internal Medicine / INTERNAL MEDICINE Diagnoses 6 month f/u - new to LDT Procedures 4C EST Fouzia Amezquita, TECHNICAL MANAGER [employer]MICAL PLANT.LIVESTOCK SALES REPRESENTATIVE [address] [place] [address] Brad Dolan MD [address] [place] [address] Referral ID Status Reason Start Date Expiration Date Visits Requested Visits Authorized [id number] Denied OON Notification Letter Financial Clearance Required - OON Payor Clearance Not Met - Admin/Tool Room Gear Machine Operator/D irector Advise to Postpone/Resched ule or Not Proceed 2 11/15/2022 1 0 Reason Comments Pain, Throat Pt reported bilatera l ear pain, chills, cough x3 days. Specialty Diagnoses / Procedures Referred By Contac t Referred To Contact [facility] / [facility] Diagnoses ear pain, sore throat, bodyaches, fever, chills, cough Procedures EST SAME DAY Self Chiara Marley, TECHNICAL MANAGER CHEMICAL PLANT.PRODUCTION SHIFT SUPERVISOR [address] [place] [address] Referral ID Status Reason Start Date Expiration Date Visits Re quested Visits Authorized [id number] Closed 03/12/2023 11/15/2023 1 1 Reason Comments [...] Procedures EST SAME DAY Self Avril Rhoades, TECHNICAL MANAGER CHEMICAL PLANT.PRODUCTION SHIFT SUPERVISOR [address] [place] [address] Referral ID Status Reason Start Date Expiration Date Visits Re quested Visits Authorized [id number] Closed 08/24/2023 11/22/2023 1 1 Reason Comments Cough Cough, sinus, HICKS, sn eezing and congestion x 1 day Specialty Diagnoses / Procedures Referred By Contac t Referred To Contact [facility] Diagnoses cough, sinus, headache, sneezing and congestion Procedures EST SAME DAY Self Amalia Gerard, TECHNICAL MANAGER CHEMICAL PLANT.PRODUCTION SHIFT SUPERVISOR [address] [place] [address] Referral ID Status Reason Start Date Expiration Date Visits Re quested Visits Authorized [id number] Closed 09/04/2023 12/03/2023 1 1 Reason Comments Back Pain Mid to lower back pa in x 2 days Reason Comments Rectal Bleeding Reason Comments Patient Question Care Teams (unrecognized sec tion and content) Medical Office Receptionist Assistant Relationship Specialty Start Date End Date Brad Dolan MD [address] [place] [id number] PCP - General Internal Medicine 03/11/22 Medical Office Receptionist Assistant Relationship Specialty Start Date End Date Brad Dolan MD [address] [place] [id number] PCP - General Internal Medicine 03/11/22 Medical Office Receptionist Assistant Relationship Specialty Start Date End Date Brad Dolan MD [address] [place] [address] PCP - General Internal Medicine 03/11/22 Medical Office Receptionist Assistant Relationship Specialty Start Date End Date Brad Dolan MD [address] [place] [address] PCP - General Internal Medicine 03/11/22 Medical Office Receptionist Assistant Relationship Specialty Start Date End Date Brad Dolan MD [address] [place] [id number] PCP - General Internal Medicine 03/11/22 Medical Office Receptionist Assistant Relationship Specialty Start Date End Date Brad Dolan MD [address] [place] [address] PCP - General Internal Medicine 03/11/22 Medical Office Receptionist Assistant Relationship Specialty Start Date End Date Brad Dolan MD [address] [place] [address] PCP - General Internal Medicine 03/11/22 Medical Office Receptionist Assistant Relationship Specialty Start Date End Date Brad Dolan MD [address] [place] [address] PCP - General Internal Medicine 03/11/22 Medical Office Receptionist Assistant Relationship Specialty Start Date End Date Brad Dolan MD [address] [place] [address] PCP - General Internal Medicine 03/11/22 Medical Office Receptionist Assistant Relationship Specialty Start Date End Date Brad Dolan MD [address] [place] [address] PCP - General Internal Medicine 03/11/22 Medical Office Receptionist Assistant Relationship Specialty Start Date End Date Brad Dolan MD [address] [place] [address] PCP - General Internal Medicine 03/11/22 Medical Office Receptionist Assistant Relationship Specialty Start Date End Date Brad Dolan MD [address] [place] [address] PCP - General Internal Medicine 03/11/22 Medical Office Receptionist Assistant Relationship Specialty Start Date End Date Brad Dolan MD [address] [place] [address] PCP - General Internal Medicine 03/11/22 Medical Office Receptionist Assistant Relationship Specialty Start Date End Date Brad Dolan MD [address] [place] [address] PCP - General Internal Medicine 03/11/22 Medical Office Receptionist Assistant Relationship Specialty Start Date End Date Brad Dolan MD [address] [place] [address] PCP - General Internal Medicine 03/11/22 Medical Office Receptionist Assistant Relationship Specialty Start Date End Date Brad Dolan MD [address] [place] [address] PCP - General Internal Medicine 03/11/22 Medical Office Receptionist Assistant Relationship Specialty Start Date End Date Brad Dolan MD [address] [facility], [place] [address] PCP - General Internal Medicine 03/11/22 Medical Office Receptionist Assistant Relationship Specialty Start Date End Date Brad Dolan MD [address] [facility], [place] [id number] PCP - General Internal Medicine 03/11/22 Medical Office Receptionist Assistant Relationship Specialty Start Date End Date Brad Dolan MD [address] [place], [place] [id number] PCP - General Internal Medicine 03/11/22 INFORMATION [...] BE BASED ON THE PRIMARY CLINICAL RECORDS. [facility] [employer] [facility]. provides no warranty or guarantee of the accuracy or completeness of information in this document.
[2023-12-02 07:19] LABS: Internal QC Validated? YES +Cl - CLEAR BKGD; Pregnancy, Urine Negative Negative
[2023-12-02] MEDS: Lactated Ringers 1,000 ML 15 ML IV (07:24)
--- NOTE | 2023-12-02 08:32 | HP.PCM_ITS ---
History and Physical Date of Admission: 12/02/23 33 F who presents to the office today for follow up. PMH migraines, bipolar disorder.? [facility] ED 10.05.23 with abdominal cramping/pain, N/V with single BM of blood; use of ibuprofen 600mg BID for right hip strain. No acute finding and discharged with dicyclomine.?Biochemical?CBC, CMP, lipase without pertinent abnormality?CT abd/pel IV only?small umbilical hernia. No acute/chronic finding.? OV 11.10.23- Pt reports she is still having daily abdominal pain that is worse with eating. Has been constipated. Having a hard BM every few days. Has seen blood only a handful of time since the ER visit. Nausea is controlled. Has not had any GI issues prior and has not had any major surgeries. ? ROS Const Constitutional: No anorexia, fatigue, fever(s), weight change or sleep problems Eyes Eyes: No change in vision ENT ENT: No abnormal hearing, difficulty swallowing, mouth lesions, tongue swelling or throat swelling Resp Respiratory: No cough or shortness of breath Cardio Cardiology: No chest pain at rest, chest pain with exertion, shortness of breath or dyspnea on exertion Gastro GI: No difficulty swallowing Genitourinary-Female: No difficulty urinating or burning urination Musc Musculoskeletal: No joint pain, joint swelling, muscle weakness or decreased muscle mass Skin Skin: No hair loss in leg, yellowing of the eye, itchy eyes, rash, skin ulcer or skin swelling Neuro Neurology: No abnormal hearing, abnormal movements, confusion, unsteady gait/balance or memory loss Psych Psychiatric: No anxiety, No confusion and No memory loss Endo Endocrine: No fatigue or weight change Aller/Imm Allergy/Immunologic: No itchy eyes, throat swelling or tongue swelling Marlo/Lymp Hematologic/Lymphatic: No easy bleeding, easy bruising or enlarged lymph nodes Exam Const General: cooperative and comfortable Nutritional Appearance: average body habitus and well nourished [facility] Head: normal to inspection Ears: hearing grossly normal bilaterally Nose: external nose normal Face and sinus: normal facial exam Mouth: oral mucosae normal Throat: posterior oropharynx normal Eyes General: appearance normal, both eyes and all related structures Neck Neck: normal visual inspection Chest Chest palpation & inspection: normal inspection of the chest and normal palpation of entire chest wall Resp Effort & Inspection: normal respiratory effort Auscultation: Bilateral: Clear to Auscultation Cardio Palpation: normal PMI Rate: regular rate Rhythm: regular rhythm GI Inspection: normal to inspection Auscultation: normal bowel sounds Percussion: normal to percussion Palpation: no hepatosplenomegaly Skin General: no rashes or lesions noted Neuro General: patient alert Extrem General: normal to inspection Psych Affect: normal affect Quality Reporting Tobacco Screening ([facility] 138) Smoking Status: Unknown if ever smoked Assessment and Plan Assessment and Plan (1) GI bleeding: Status: Acute Qualifiers: GI bleed type/associated pathology: unspecified gastrointestinal hemorrhage type Qualified Code(s): K92.2 - Gastrointestinal hemorrhage, unspecified (2) Nausea & vomiting: Status: Acute Qualifiers: Vomiting type: unspecified Qualified Code(s): R11.2 - Nausea with vomiting, unspecified Plan: 33-year-old with past medical history of migraine disorder presents with acute on chronic nausea vomiting associated with abdominal pain and lower GI bleeding. She does take ibuprofen to 3 times a day for uncontrolled migraine disorder. She also has a history of lower GI bleeding which presented to the emergency room. This prompted a CT scan of the abdomen pelvis which did not show any ab normalities. She was given Bentyl which she has been taking on a scheduled basis. She is still having some lower GI bleeding and she still very nauseous and throwing up on a daily basis. She denied marijuana usage, cigarettes or previous abdominal surgeries. She denies any urinary tract infections but did admit to abnormal Pap smear in the past. I urged her to see a fire extinguisher tester. She was also diagnosed with excessive testosterone levels from her previous fire extinguisher tester. I told her it makes it even more important that she does see a fire extinguisher tester or storage battery inspector and tester. She said she would discuss this with her primary. Her differential diagnosis for upper GI symptoms does include gastroparesis, peptic ulcer disease from NSAIDs, IBS, exocrine and endocrine insufficiency, H. pylori gastritis, celiac disease. The differential diagnosis for lower GI bleeding does include hemorrhoidal bleeding, anal fissure, diverticular bleeding, ulcerative colitis and less likely neoplasia. She will undergo an upper and lower endoscopy for evaluation of her lower GI tract. She will also undergo gastric emptying study and possible HIDA scan with ejection fraction in the near future pending blood work, imaging and endoscopic evaluation. Orders: Orders CBC W/Diff, Automated Today K92.2 - Gastrointestinal hemorrhage, unspecified Ferritin Today K92.2 - Gastrointestinal hemorrhage, unspecified BHUMI + Protein Elect, Serum Today K92.2 - Gastrointestinal hemorrhage, unspecified Iron Binding Capacity,Total Today K92.2 - Gastrointestinal hemorrhage, unspecified Retic Panel Count Today K92.2 - Gastrointestinal hemorrhage, unspecified Iron Today K92.2 - Gastrointestinal hemorrhage, unspecified Celiac Disease Profile Today K92.2 - Gastrointestinal hemorrhage, unspecified LDH Today K92.2 - Gastrointestinal hemorrhage, unspecified Haptoglobin Today K92.2 - Gastrointestinal hemorrhage, unspecified ANCA Today K92.2 - Gastrointestinal hemorrhage, unspecified Anti-Smooth Muscle ABS Today K92.2 - Gastrointestinal hemorrhage, unspecified CRP Today K92.2 - Gastrointestinal hemorrhage, unspecified Erythrocyte Sed Rate Today K92.2 - Gastrointestinal hemorrhage, unspecified Immunoglobulin E Today K92.2 - Gastrointestinal hemorrhage, unspecified Miscellaneous Lab Procedure Today K92.2 - Gastrointestinal hemorrhage, unspecified Comprehensive Metabolic Profil Today K92.2 - Gastrointestinal hemorrhage, unspecified Hepatitis Panel Acute Today K92.2 - Gastrointestinal hemorrhage, unspecified Thyroid Stim Hormone (TSH) Today K92.2 - Gastrointestinal hemorrhage, unspecified Allergen, Food Profile 14 Today K92.2 - Gastrointestinal hemorrhage, unspecified Pancreatic Elastase, Fecal Today K92.2 - Gastrointestinal hemorrhage, unspecified Calprotectin, Stool Today K92.2 - Gastrointestinal hemorrhage, unspecified Stool Lactoferrin/WBC Today K58.9 - Irritable bowel syndrome without diarrhea, K92.2 - Gastrointestinal hemorrhage, unspecified Giardia Lamblia, Stool EIA Today K92.2 - Gastrointestinal hemorrhage, unspecified Triglycerides Today K92.2 - Gastrointestinal hemorrhage, unspecified IgG Subclasses Today K92.2 - Gastrointestinal hemorrhage, unspecified UCHE Comprehensive Panel Today K92.2 - Gastrointestinal hemorrhage, unspecified Vitamin B12 Today K92.2 - Gastrointestinal hemorrhage, unspecified Vitamin D 1,25-Dihydroxy Today K92.2 - Gastrointestinal hemorrhage, unspecified Free T3 Today K92.2 - Gastrointestinal hemorrhage, unspecified FSH and LH Today K92.2 - Gastrointestinal hemorrhage, unspecified Gastrin, Serum Today K92.2 - Gastrointestinal hemorrhage, unspecified Gastric Emptying Study Today K92.2 - Gastrointestinal hemorrhage, unspecified, R11.2 - Nausea with vomiting, unspecified Medications: New prochlorperazine maleate 10 mg PO Q8H PRN 90 tabs 0RF nausea and vomiting pantoprazole 20 mg PO BID 30 days 60 tabs 3RF hyoscyamine sulfate 0.125 mg PO BID-QID PRN 30 tabs 1RF abdominal pain I have examined the patient and the H&P has been reviewed. There are no clinical changes since date of exam.
--- NOTE | 2023-12-02 09:00 | OP.CCLET_ITS ---
12/02/2023 Louann Dolan [address] [place] [address] Re : Colonoscopy procedure for Jordyn Araujo Dear Dr. Dolan This procedure was performed on Saturday, December 02, 2023. My impressions and recommendations are as follows: Impressions : - The entire examined colon is normal. Biopsied. - A few ulcers in the terminal ileum. Biopsied. Recommendations : - Discharge patient to home. - Resume previous diet. - Continue present medications. - Await pathology results. - Repeat colonoscopy for surveillance based on pathology results. My findings are described in the full procedure note, which is enclosed. If I can be of further assistance, please feel free to contact me at . Sincerely, Javier Benoit, 12/02/2023 8:59:59 AM This report has been signed electronically.
--- NOTE | 2023-12-02 09:00 | OP.COLON_ITS ---
Patient Name: Jordyn Araujo Procedure Date: 12/02/2023 8:32 AM Date of : 1990 Age: 33 Procedure: Colonoscopy Indications: Suspected Crohn's disease of the small bowel Providers: Javier Benoit DO Referring MD: Javier Benoit DO Medicines: Monitored Anesthesia Care Patient Profile: This is a 33 year old female. Refer to note in patient chart for documentation of history and physical. Last Colonoscopy: none. The patient's first colonoscopy is today. Complications: No immediate complications. Procedure: Pre-Anesthesia Assessment: - Prior to the procedure, a History and Physical was performed, and patient medications and allergies were reviewed. The patient is competent. The risks and benefits of the procedure and the sedation options and risks were discussed with the patient. All questions were answered and informed consent was obtained. Patient identification and proposed procedure were verified by the physician in the pre-procedure area. Mental Status Examination: alert and oriented. Airway Examination: normal oropharyngeal airway and neck mobility. Prophylactic Antibiotics: The patient does not require prophylactic antibiotics. Prior Anticoagulants: The patient has taken no anticoagulant or antiplatelet agents. ASA Grade Assessment: II - A patient with mild systemic disease. After reviewing the risks and benefits, the patient was deemed in satisfactory condition to undergo the procedure. The anesthesia plan was to use monitored anesthesia care (MAC). Immediately prior to administration of medications, the patient was re-assessed for adequacy to receive sedatives. The heart rate, respiratory rate, oxygen saturations, blood pressure, adequacy of pulmonary ventilation, and response to care were monitored throughout the procedure. The physical status of the patient was re-assessed after the procedure. After I obtained informed consent, the scope was passed under direct vision. Throughout the procedure, the patient's blood pressure, pulse, and oxygen saturations were monitored continuously. The Colonoscope was introduced through the anus and advanced to the terminal ileum. The colonoscopy was performed without difficulty. The patient tolerated the procedure well. The quality of the bowel preparation was adequate. The terminal ileum, ileocecal valve, appendiceal orifice, and rectum were photographed. Scope In: 8:43:14 AM Scope Withdrawal Time 0 hours 6 minutes 36 seconds Scope Out: 8:53:36 AM Total Procedure Duration Time 0 hours 10 minutes 22 seconds Findings: The perianal and digital rectal examinations were normal. The colon (entire examined portion) appeared normal. Biopsies for histology were taken with a cold forceps from the entire colon for evaluation of microscopic colitis. Verification of patient identification for the specimen was done. Estimated blood loss was minimal. The terminal ileum contained a few three mm ulcers. No bleeding was present. Biopsies were taken with a cold forceps for histology. Verification of patient identification for the specimen was done. Estimated blood loss was minimal. Impression: - The entire examined colon is normal. Biopsied. - A few ulcers in the terminal ileum. Biopsied. Recommendation: - Discharge patient to home. - Resume previous diet. - Continue present medications. - Await pathology results. - Repeat colonoscopy for surveillance based on pathology results. Procedure Code(s): --- Professional --- 32634, Colonoscopy, flexible; with biopsy, single or multiple CPT copyright 2021 [employer]. All rights reserved. The codes documented in this report are preliminary and upon sql architect review may be revised to meet current compliance requirements. Javier Benoit DO 12/02/2023 8:59:59 AM This report has been signed electronically. Number of Addenda: 0 Note Initiated On: 12/02/2023 8:32 AM
== END 2023-12-02 09:40 | disposition home or self-care (01) ==
LOC: EN 06:52 → AC 06:53
PROVIDERS: Anesthesiology; PCP Internal Medicine; Referring Provider Internal Medicine; Visit Provider Internal Medicine Gastroenterology
PROC: 0DJD8ZZ Inspection of Lower Intestinal Tract, Via Natural or Artificial Opening Endoscopic (ICD-10-PCS; CPT 45378; principal; 2023-12-02 08:10)
DX: K50.00 Crohn's disease of small intestine without complications (principal); J45.909 Unspecified asthma, uncomplicated; K21.9 Gastro-esophageal reflux disease without esophagitis; Z79.899 Other long term (current) drug therapy
CPT/HCPCS: 45380; 81025; 88305; J7120

== ENCOUNTER → 2023-12-16 | Outpatient (CLI) | payer OTHER, SELFPAY ==
--- NOTE | 2023-12-16 12:42 | NM_ITS ---
CLINICAL: 33-year-old female with history of chronic nausea. SEMI-SOLID PHASE 99m Tc SULFUR COLLOID GASTRIC EMPTYING STUDY COMPARISON: CT of the abdomen-pelvis report 10/05/2023 FINDINGS: The patient was administered 1.1 mCi of 99m Tc sulfur colloid mixed with oatmeal and consumed per os. Image acquisitions in the anterior-posterior projections for a total of 60 minutes. There is prompt visualization of the stomach. There is no gastroesophageal reflux identified. First order kinetics are maintained throughout the duration of the acquisitions. The T ? linear fit was extrapolated to be 106.24 minutes, (Normal: 12-56 minutes). NM/Gastric Emptying Study IMPRESSION: 1. ABNORMAL 99m Tc sulfur colloid semi-solid phase (oatmeal) gastric emptying imaging examination. A. There is delayed semi-solid phase gastric emptying compared to normal controls with maintained first order kinetics throughout all components of the examination. (Bijal et al, J Nucl Med Tech 38: 186, 2010). Electronically Signed: Tim Taylor DO at 9:27 EST ,
== END | disposition home or self-care (01) ==
LOC: NM 12:41
PROVIDERS: PCP Internal Medicine; Referring Provider Internal Medicine Gastroenterology; Visit Provider Internal Medicine Gastroenterology
DX: R11.2 Nausea with vomiting, unspecified (principal); K92.2 Gastrointestinal hemorrhage, unspecified
CPT/HCPCS: 78264; A9541

== ENCOUNTER 2024-01-06 08:46 | Emergency (ER) | payer OTHER, SELFPAY ==
[2024-01-06 08:47] VITALS: BP 113/69; PULSE 63; RESP 16; TEMP 36.7; O2SAT 100
--- NOTE | 2024-01-06 09:00 | EX.ED.DYSGE1 ---
HPI History of Present Illness Chief Complaint: General Illness Informant: patient Onset/Context/Timing Onset: Today and Yesterday Context: Gradual Onset Timing: Continuous Current Severity: Mild Maximum Severity: Mild Narrative Narrative: 33-year-old female history of recently diagnosed Crohn's disease and bipolar disorder. States she has had dry heaves with nausea vomiting last 2 days. Watery diarrhea. Also complaining of a headache with a history of migraines. She states the headaches in her mid forehead on both sides and behind both ears. Denies any trauma. She is on no blood thinners. Subjective fever last night. No dysuria. No localizing abdominal pain. Prior similar symptoms: Yes Recent Illness/Hospitalization: No PFSH PFS Medical History Alcohol use Anxiety Arthritis Asthma Back pain Bipolar disorder Easy bruising Gastric reflux History of irregular heartbeat History of pain when walking History of steroid therapy Injury of head and neck Loss of consciousness Low iron Marijuana use Migraine Restless legs Shortness of breath on exertion Syncope Wears glasses Home Medications fluoxetine 40 mg capsule 40 mg PO DAILY 01/13/22 [History Last Taken 12/02/23] tizanidine 4 mg capsule (Zanaflex) 4 mg PO Q8H PRN muscle spasticity #14 caps 04/18/22 [Rx Last Taken Unknown] prochlorperazine maleate 10 mg tablet 10 mg PO Q8H PRN nausea and vomiting #90 tabs 11/10/23 [Rx Last Taken Unknown] pantoprazole 20 mg tablet,delayed release 20 mg PO DAILY 11/19/23 [History Last Taken Unknown] hyoscyamine sulfate 0.125 mg tablet 0.125 mg PO BID PRN abdominal pain #30 tabs 12/02/23 [Rx Last Taken Unknown] budesonide 3 mg capsule,delayed,extended release 6 mg (2 x 3 mg) PO DAILY #60 ea 12/25/23 [Rx Last Taken Unknown] sucralfate 1 gram tablet (Carafate) 1 g PO QAC #90 tabs 12/25/23 [Rx Last Taken Unknown] ketorolac 10 mg tablet 10 mg PO Q8H PRN pain #10 tabs 01/06/24 [Rx Last Taken Unknown] ondansetron 4 mg disintegrating tablet 4 mg PO Q6H PRN nausea and vomiting #7 tabs 01/06/24 [Rx Last Taken Unknown] Allergy/AdvReac Type Severity Reaction Status Date / Time sumatriptan [From Imitrex] Allergy Mild Other Verified 01/06/24 08:50 Surgical History Hx of tonsillectomy Social History Smoking Status: Former smoker alcohol intake: current substance use type: does not use ROS ROS ED ROS Narrative Nausea and vomiting. Diarrhea. Headache. Review of Systems ROS Unobtainable: Denies due to encephalopathy Constitutional Constitutional ED: Reports chills, fever(s) and subjective Eyes Eyes: Denies blurry vision ENT ENT ED: Denies ear pain Cardiovascular Cardiovascular: Denies chest pain Respiratory/Chest Respiratory/Chest: Denies cough or dyspnea Gastrointestinal Gastrointestinal: Reports diarrhea, nausea and vomiting; Denies abdominal pain, constipation or melena Genitourinary Genitourinary ED: Denies dysuria or hematuria Musculoskeletal Musculoskeletal: Denies arthralgias, back pain, myalgias or neck pain Integumentary Denies abscess or Abrasions Neurologic Neurologic: Reports headache(s); Denies paresthesias or weakness Psychiatric Psychiatric: Denies anxiety or depression Endocrine Endocrinology: Denies cold intolerance Hematologic/Lymphatic Hematologic/Lymphatic: Reports none Allergic/Immunologic Allergic/Immunologic ED: Denies mouth swelling, tongue swelling or urticaria EXAM Physical Exam Narrative Exam Narrative: 33-year-old female no acute distress. Vital signs stable afebrile. H EENT exam pupils are reactive light. Extra motions are intact. No facial droop. Normal speech. Mild dry mucous membranes. No trauma to her face or scalp. Neck nontender no lymphadenopathy. No meningismus. Lungs clear to auscultation. Heart regular rhythm rate about 65 no murmur. Chest wall nontender. Abdomen soft nontender. No peritoneal signs. Back unremarkable. Moving all 4 extremities. 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 Dorsi plantarflexion intact. No edema. Nontender. Neurologically she is awake and alert. Answering questions. No focal motor deficits. NIH is 0. Fingertip to nose within normal limits. Const Vital Signs: 01/06/24 08:47 01/06/24 08:46 Temperature 98.1 F Temperature Source Temporal Pulse Rate 63 Respiratory Rate 16 Respiratory Effort Normal Non-Labored Respiratory Pattern Normal Blood Pressure 113/69 Blood Pressure Mean 83 Pulse Ox 100 Oxygen Delivery Method Room Air Positive well nourished and well developed; Negative for cachectic, contractures or unkempt General Appearance ED: well developed and NAD; Negative for unkempt, cachectic, contractures, cyanotic, diaphoretic or pallor Nutritional Appearance: Negative for cachectic HEENT Reports dry mucous membranes; Denies moist mucous membranes Negative for trauma or tenderness Mouth ED: Yes dry mucous membranes Mouth: dry mucous membranes Eyes PERRL and EOMs intact bilaterally General Eye ED: Negative for pale conjunctiva or scleral icterus Neck no lymphadenopathy, supple and no JVD General: Negative for tenderness Lymph Lymphatic: Negative for other Chest Wall inspection of chest normal and palpation of chest normal Chest: Negative for other Resp normal respiratory effort and clear to auscultation bilaterally Effort and Inspection: Negative for retractions Auscultation: Negative for rales, rhonchi or wheezes Cardio regular rate, regular rhythm, S1 normal heart sound, S2 normal heart sound and no murmurs Palpation: Negative for palpable S3 or palpable S4 Rate: Negative for bradycardia or tachycardic Rhythm: Negative for abnormal rhythm GI normal to inspection, nondistended, normoactive bowel sounds, non-tender, non-distended and no masses; Negative for hepatosplenomegaly Inspection: Negative for abdominal distention Auscultation: normoactive bowel sounds Palpation: soft; Negative for tender, guarding, mass or rebound tenderness present Bladder / Kidney Exam: No other Back/Spine no CVA tenderness General Back: Negative for CVA tenderness or other Cervical Spine: Negative for cervical spine tenderness Thoracic Spine / Upper Back: Negative for thoracic spinal tenderness or paraspinal muscle tenderness Lumbar Spine / Lower Back: Negative for lumbar spinal tenderness Extremity normal to inspection General Extremety ED: Negative for edema, tenderness or other findings General Extremity: Negative for edema or other findings Neuro oriented x3 and CN's II-XII intact bilaterally Sensorium / Orientation: alert; Negative for orientation impaired, lethargic or stuporous Motor Exam: strength 5/5 throughout; Negative for general weakness or strength abnormal Psych mental status grossly normal Appearance: Negative for unkempt Attitude: No agitated Mood & Affect: Negative for depressed, anxious or tearful Skin no rashes or lesions noted and no wounds General Skin Exam: Negative for jaundice or pallor Lesions: No lesion noted Rashes: No rashes noted Trauma: Negative for abrasion Wounds: Negative for wounds noted MDM MDM MDM Narrative Medical decision making narrative: 33-year-old female with Crohn's complaining of migraine headache which will be treated with IV fluids, Toradol, Benadryl and Zofran. She is also complaining nausea and vomiting and possibly small amount of blood in her stool. Screening labs will be obtained. I do not think she needs any imaging. Her neurologic exam is normal. Repeat exam at 10:25 AM patient doing well. Headache is resolving. Neurologic exam and the rest of her exam remains normal. She clinically looks and states she feels improved. We went over her normal labs. She is comfortable being discharged home. She will be given off work excuse today. A prescription for Zofran as needed for nausea and Toradol for her migraines. I offered her Imitrex but she said she has an allergy to that. Stated the Toradol worked well today. History & Record Review Discussion w/independent historian: Patient and Family Additional record(s) reviewed:: Prior inpatient record, Prior outpatient record, Prior ED visit and Prior labs Lab Data Attestation: I reviewed the patient's lab results. Lab results narrative: CBC normal. White count 9. H&H 13.6 and 41. Platelets 295. CMP normal. Gap 4. Normal BUN of 17 creatinine 0.8. Liver enzymes normal. Labs: Laboratory Results - last 24 hr 01/06/24 09:20 WBC 9.5 RBC 4.57 Hgb 13.6 Hct 41.4 MCV 90.6 MCH 29.8 MCHC 32.9 RDW Std Deviation 40.6 RDW Coeff of Duy 12.4 Plt Count 295 MPV 9.8 Sodium 137 Potassium 4.1 Chloride 108 H Carbon Dioxide 25.0 Anion Gap 4 L BUN 17 Creatinine 0.88 Est GFR (MDRD) Af Amer 94 Est GFR (MDRD) Non-Af 78 BUN/Creatinine Ratio 19.4 Glucose 96 Calcium 8.7 Total Bilirubin 0.40 AST 15 ALT 11 L Alkaline Phosphatase 70 Total Protein 7.2 Albumin 3.7 Globulin 3.5 Albumin/Globulin Ratio 1.1 Discharge Plan Triage Chief Complaint: General Illness ED Provider: Lauri Mena Dx/Rx/DC Orders Clinical Impression: Migraine, Nausea & vomiting Instructions: ED, Migraine (Classical), ED Vomiting (Adult) Prescriptions: New ondansetron 4 mg tablet,disintegrating 4 mg PO Q6H PRN (Reason: nausea and vomiting) Qty: 7 0RF ketorolac 10 mg tablet 10 mg PO Q8H PRN (Reason: pain) Qty: 10 0RF Rx Instructions: maximum total duration of 5 days from all oral, intranasal, or parenteral formulations No Action prochlorperazine maleate 10 mg tablet 10 mg PO Q8H PRN (Reason: nausea and vomiting) Qty: 90 0RF fluoxetine 40 mg capsule 40 mg PO DAILY Patient Comments: take 1 capsule by mouth once daily tizanidine [Zanaflex] 4 mg capsule 4 mg PO Q8H PRN (Reason: muscle spasticity) Qty: 14 0RF pantoprazole 20 mg tablet,delayed release (DR/EC) 20 mg PO DAILY hyoscyamine sulfate 0.125 mg tablet 0.125 mg PO BID PRN (Reason: abdominal pain) Qty: 30 3RF sucralfate [Carafate] 1 gram tablet 1 g PO QAC Qty: 90 0RF budesonide 3 mg capsule,delayed,extend.release 6 mg PO DAILY Qty: 60 0RF Primary Care Provider: Louann Dolan Referrals: Louann Dolan MD [Primary Care Provider] - 3-5 Days if not improving Activity Restrictions/Additional Instructions: Zofran as needed for nausea. Plenty of fluids and rest. Follow-up with your doctor if not improving or return if worse. If you get another migraine headache you can use one of the Toradol which is an anti-inflammatory painkiller, Zofran for nausea and Benadryl which also helps relieve the headache. Disposition Disposition: Home, Self Care
[2024-01-06] MEDS: Ondansetron 4 MG/2 ML Vial IV (09:16)
[2024-01-06] MEDS: Ketorolac 30 MG/ML Syringe IV (09:16)
[2024-01-06] MEDS: DiphenhydrAMINE 50 MG/ML Syringe 25 MG IV (09:16)
[2024-01-06] MEDS: 0.9% Normal Saline (1000mL) 1,000 ML 1000 ML IV (09:16)
--- OUTSIDE RECORDS SUMMARY | 2024-01-06 09:22 | XMS RPT_ITS | CCD ---
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 Requested Prescriptions Pending Prescriptions Disp Refills FLUoxetine (PROZAC) 40 mg capsule [Pharmacy Med Name: FLUOXETINE HCL 40 MG CAPSULE] 30 capsule 5 Sig: take 1 capsule by mouth once daily Date of last office visit in primary care: 09/28/2023 Date of next office visit in primary care: Visit date not found Please advise. Thank you. Donna Hester LPN. documented in this encounter [facility] 10-14-2023 Miscellaneous Notes Patient returns call and [...] 3) At ER on physical exam dr reyes pt has a lump on the outside [...] she is okay with going outside of [place] to [facility], can refer to GI in [facility] or [place], or other [facility] site that she prefers. With regards [...] Please advise patient. documented in this encounter [facility] 10-05-2023 Miscellaneous Notes Patient call in [...] Has been getting dizzy. Protocols used: Rectal Oyrwtnem-BRDLJ-AL documented in this encounter [facility] 09-28-2023 Note HNO ID: [id number] Author: Issa Bhatti APRN.RUNNING RIGGER Service: ? Author Type: Nurse Practitioner Type: Progress Notes Filed: 09/28/2023 4:38 PM Note Text: SUBJECTIVE Carlos Araujo is a 33 year old female here today for acute concern. Chief Complaint Patient presents with: Same Day Appointment HPI Carlos Araujo is a 33 year old female. [...] 18 Wt 170 lb (77.1kg) SpO2 97% LMP 09/26/2023 Physical Exam Vitals and nursing note [...] necessary edited, so (more content not included)... [facility] 09-28-2023 Note HNO ID: [id number] Author: Jarrett Carcamo MD Service: ? Author [...] walked to appointment desk. Jarrett Carcamo MD [facility] 09-28-2023 History of Presen t illness Narrative [...] Jarrett Carcamo MD documented in this encounter [facility] 09-04-2023 Note HNO ID: [id number] Author: Amalia Gerard APRN.DAR Service: ? Author Type: Nurse Practitioner Type: Progress Notes Filed: 09/04/2023 10:26 AM Note Text: CC: Patient presents with: Cough: Cough, sinus, HICKS, sneezing and congestion x 1 day HPI: Carlos Araujo is a 33 year old female [...] Patient agreeable to treatment plan. Amalia Gerard APRN.[facility] 09-04-2023 History of Presen t illness Narrative CC: Patient presents with: Cough: Cough, sinus, HICKS, sneezing and congestion x 1 day HPI: Carlos Araujo is a 33 year old female [...] Patient agreeable to treatment plan. Amalia Gerard APRN.CNP documented in this encounter [facility] 08-24-2023 Note HNO ID: [id number] Author: Elle Michaud RT(R) Service: Radiology Author Type: Technologist Type: Progress Notes Filed: 08/24/2023 10:04 AM Note Text: Radiology Service Progress Note PATIENT NAME: Carlos Araujo DATE OF SERVICE: August 24, 2023 [...] RT Michael(R) August 24, 2023 9:56 AM [facility] 08-24-2023 Miscellaneous Notes Patient notified of results as listed below, verbalized understanding of instructions given. Margot Grsos MA X-rays normal. Continue care plan as discussed. Avril Rhoades APRN.CNP documented in this encounter [facility] 08-24-2023 Note HNO ID: [id number] Author: Avril Rhoades APRN.CNP Service: ? Author Type: Nurse Practitioner Type: [...] of care. This note was generated using NextUser software. It may contain errors in wording, punctuation, or spelling. Avril Rhoades APRN.[facility] 08-24-2023 History of Presen t illness Narrative [...] of care. This note was generated using NextUser software. It may contain errors in wording, punctuation, or spelling. Avril Rhoades APRN.RUNNING RIGGER documented in this encounter [facility] 07-01-2023 Miscellaneous Notes Last office visit: [...] Angela Stephenson LPN documented in this encounter [facility] 06-25-2023 Miscellaneous Notes Last office visit: 11/07/2022 No future appt Dahiana Arriaga LPN documented in this encounter [facility] 05-13-2023 Miscellaneous Notes Spoke with pt and information listed below given. Pt verbalizes understanding. Marli Cui LPN Left message for patient to return call. Maria E Ashton Negative for flu and covid please notify thank you documented in this encounter [facility] 05-12-2023 Note HNO ID: [id number] Author: Isela Gonzalez APRN.RUNNING RIGGER Service: ? Author Type: Nurse Practitioner Type: Progress Notes Filed: 05/12/2023 7:34 AM Note Text: Subjective Cough Associated symptoms include headaches. Pertinent negatives include no sore throat, no shortness of breath and no wheezing. Carlos Araujo is a 33 year old female [...] Discussed expected course of illness Isela Gonzalez APRN.[facility] 05-12-2023 History of Presen t illness Narrative Subjective Cough Associated symptoms include headaches. Pertinent negatives include no sore throat, no shortness of breath and no wheezing. Carlos Araujo is a 33 year old female [...] Discussed expected course of illness Isela Gonzalez APRN.CNP documented in this encounter [facility] 05-12-2023 Instructions Isela Gonzalez APRN.CNP - 05/12/2023 7:29 AM EDT ASSESSMENT/PLAN: 1. [...] Discussed expected course of illness Isela Gonzalez APRN.CNP Treatment for Viral Upper Respiratory Tract Infections [...] fluids help open respiratory and sinus passages Muse Nasal [place] may offer relief of nasal and head [...] rather than better documented in this encounter [facility] 04-27-2023 Note HNO ID: [id number] Author: CHIVO Umana Service: ? Author Type: Physician Dobby Loom Fixer Type: Progress Notes Filed: 04/27/2023 11:54 AM Note Text: This note was created using eCoastriter. Subjective Carlos Araujo is a 33 year old female. [...] detail warranting prompt ER evaluation. CHIVO Umana [facility] 03-12-2023 Note HNO ID: [id number] Author: Chaira Marley APRN.RUNNING RIGGER Service: ? Author Type: Nurse Practitioner Type: Progress Notes Filed: 03/12/2023 4:29 PM Note Text: Subjective The history is provided by the patient. No pediatric speech language pathologist was used. HPI Carlos Araujo is a 33 year old female [...] have confirmed and edited as necessary, the [facility] Review of Systems Constitutional: Positive [...] warranting prompt ER evaluation. Chiara Marley APRN.CNP [facility] 03-12-2023 Instructions Chiara Marley APRN.CNP - 03/12/2023 [...] inability to swallow. documented in this encounter [facility] 03-12-2023 History of Presen t illness Narrative Subjective The history is provided by the patient. No pediatric speech language pathologist was used. HPI Carlos Araujo is a 33 year old female [...] have confirmed and edited as necessary, the [facility] Review of Systems Constitutional: Positive [...] warranting prompt ER evaluation. Chiara Marley APRN.CNP documented in this encounter [facility] 11-07-2022 History of Presen t illness Narrative VIRTUAL VISIT PROGRESS NOTE This is a virtual visit using QuantiaMD video visit. It required patient-provider interaction for the medical decision making as documented below. Carlos Araujo is a 32 year old female [...] Brad Dolan MD documented in this encounter [facility] 11-07-2022 Miscellaneous Notes Patient switched to video documented in this encounter [facility] 10-15-2022 Miscellaneous Notes Last office visit: 09/25/22 Next appointment scheduled: 11/07/22 Patient phones requesting refills as follows: Requested Prescriptions Pending Prescriptions Disp Refills FLUoxetine (PROZAC) 40 mg capsule 90 capsule 3 Sig: Take 1 capsule by mouth once daily. Please review and advise. Angela Stephenson LPN documented in this encounter [facility] 09-25-2022 History of Presen t illness Narrative SUBJECTIVE: HEPATITIS B(1 of 3 - 3-dose series) Never done HEPATITIS C SCREENING Never done HIV SCREENING Never done COVID-19 VACCINE(2 - Booster for Abdi series) due on 07/15/2021 HPI Carlos Araujo is a 32 year old female. H ACTIVE PROBLEM LIST Polycystic Ovaries States injured [...] now. - CONSULT TO ORTHOPAEDICS Fouzia Amezquita APRN.CNS Medical Decision Making: Problems: Moderate: New problem with uncertain prognosis Risk: Moderate: Drug management Medical Decision Making Level: 4 - Moderate documented in this encounter [facility] 09-11-2022 Instructions Fouzia Amezquita APRN.CNS - 09/11/2022 9:32 AM EDT Check to see if your insurance covers Tdap vaccine and what location to get the vaccine Return here or go to pharmacy for Covid 19 booster documented in this encounter [facility] 09-11-2022 History of Presen t illness Narrative SUBJECTIVE: HEPATITIS B(1 of 3 - 3-dose series) Never done HEPATITIS C SCREENING Never done HIV SCREENING Never done COVID-19 VACCINE(2 - Booster for Abdi series) due on 07/15/2021 DEPRESSION ASSESSMENT Never done HPI Carlos Araujo is a 32 year old female. HPI excerpted from last visit: Presents today for physical exam, to establish care. Presents today to establish care with [facility] provider. Previous PCP: Dr Aleksandr Mares [facility]. Last seen: Jul 2021 Labwork: about Jul 2021, [place] Outside records:none available at the time of her visit. SQL DATABASE DEVELOPER: [facility] Notes seen at [facility] ER for back pain since moving here 6 mos ago, 3-4 times. 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 States she took phentermine for weight loss and for gag reflex in the past per her previous PCP in [place]. History of PCOS, not currently taking metformin. [...] since that time. Has been seen at [facility] ER for this since moving to the [...] HEPLISAV B (HEPATITIS B, ADJUVANT, ADULT) - [email or web address] COVID-19 BIVALENT BOOSTER VACCINE, AGE 12+ YR [...] if needed in the interval Fouzia Amezquita APRN.OLGA Medical Decision Making: Problems: Low: Acute, uncomplicated illness or injury and Stable chronic illness Risk: Moderate: Drug management Medical Decision Making Level: 3 - Low documented in this encounter [facility] 07-09-2022 Miscellaneous Notes Okayed Patient has [...] Meg Joyner LPN documented in this encounter [facility] 06-11-2022 History of Presen t illness [...] Jarrett Carcamo MD documented in this encounter [facility] 03-18-2022 History of Presen t illness Narrative GENERAL PSYCHOLOGY Patient was seen for an initial evaluation. All information is from Patient report except when noted. This evaluation is NOT intended for forensic, disability or child custody purposes. Informed consent was discussed and signed by the patient. -Pt was sent mychart msg with consent for tx -Pt read mychart msg,agreed [facility] Assessment: In Person Wstr Pt cancelled same day SW received a mychart msg from Pt today at 7:57am stating she needed to cancel her appt today due to needing to take her to chemo therapy -[facility] sent mychart msg with an available appt to resched appt -[facility] sent mychart msg with late cancellation ltr KASSY Parks documented in this encounter [facility] 03-14-2022 Miscellaneous Notes Patient notified. Kaitlin Sales RN The following approved medication requests have been transmitted electronically. Signed Prescriptions Disp Refills metroNIDAZOLE (FLAGYL) 500 mg tablet 14 tablet 0 Sig: Take 1 tablet by mouth twice daily for 7 days. Authorizing Provider: KATELYN HOFF Pharmacy Information Pharmacy Address Telephone [facility]/pharmacy #[id number] [place] [address] Left message to call office. Delaney Escamilla RN Please notify pt - vaginal culture positive for bacterial vaginosis. Metronidazole sent to pharmacy. No alcohol during antibiotic or for 2 days after completion of antibiotic. No sexual activity during treatment unless condoms are used. If using oral contraceptives, uses backup control for the remainder of cycle. Probiotic - recommend [employer]. Katelyn Hoff APRN.CNP documented in this encounter [facility] 03-13-2022 History of Presen t illness Narrative Carlos is a 32 year old who presents for an annual gynecologic exam with complaints of increase in vaginal discharge for several months. No itching, irritation or odor. Has been told that she has high testosterone but takes no medication. No history of PCOS that she is aware of. Moved to [place] from [place] 6 months ago due to 's job. Menses: cycles every 30-60 days and 4-5 days of flow. + cramping. Does not keep track of period but knows she has one each month at varying times. 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 HPV vaccine: No Last Pap: 5+ years ago in [facility] - thinks it was normal HPV: negative History of abnormal pap: Yes, had biopsy x 2, unsure of other procedures Last mammogram: never Sexually active: Yes History of STDS: ?HPV Patient concerns for STD exposure: No. Time with current partner: 10 years Pain with intercourse: No Postcoital bleeding: No OB History T2 L2 SAB0 IAB0 Ectopic0 Multiple0 Live Births0 Lead Oracle Developer History LMP: 03/08/2022, Having periods Age at Menarche: Age at First : Age at Menopause: Lead Oracle Developer History Comments: Sexual Activity: Yes; Male Contraception: [...] external genitalia normal, normal Bartholin's glands, urethra, Alsen's glands, no vulvar lesions, no cervical lesions, [...] Katelyn Hoff APRN.DAR documented in this encounter [facility] 03-11-2022 History of Presen t illness Narrative SUBJECTIVE: HEPATITIS C SCREENING Never done HIV SCREENING Never done DTAP,TDAP,TD(1 - Tdap) Never done PAP TESTING Never done HPV TESTING Never done COVID-19 VACCINE(2 - Booster for Abdi series) due on 07/15/2021 HPI Carlos Araujo is a 32 year old female. Presents today for physical exam, to establish care. Presents today to establish care with [facility] provider. Previous PCP: Dr Aleksandr Mares [facility]. Last seen: Jul 2021 Labwork: about Jul 2021, [place] Outside records:none available at the time of her visit. SQL DATABASE DEVELOPER: [place] - [facility] [place] Notes seen at [facility] ER for back pain since moving here 6 mos ago, 3-4 times. 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 States she took phentermine for weight loss and for gag reflex in the past per her previous PCP in [place]. History of PCOS, not currently taking metformin. [...] since that time. Has been seen at [facility] ER for this since moving to the [...] ICD9: V72.31, ICD10: Z01.419 - CONSULT TO SQL DATABASE DEVELOPER 4. Screening for HIV (human immunodeficiency virus) [...] 4 - Moderate documented in this encounter [facility] Encounter for gynecological examination (general) (routine) without abnormal findings- Primary Vaginal discharge Leukorrhea, not specified as infective Screening for cervical cancer Screening for malignant neoplasm of the cervix Encounter for screening for human papillomavirus (HPV) Special screening examination for human papillomavirus (HPV) [facility] Diagnosis BV (bacterial vaginosis)- Primary Vaginitis and vulvovaginitis, unspecified [facility] Diagnosis No-show for appointment- Primary [facility] Diagnosis Acute midline low back pain without sciatica- Primary Urinary frequency [facility] Diagnosis Bilateral wrist pain- Primary Pain [...] depression Dysthymic disorder [facility] Injury of left knee, subsequent encounter- Primary Acute pain of left knee [facility] Diagnosis Anxiety and depression- Primary Dysthymic disorder Missed periods Absence of menstruation [facility] Diagnosis Sore throat- Primary Acute pharyngitis Strep throat Streptococcal sore throat [facility] Diagnosis Viral URI with cough- Primary Acute upper respiratory infections of unspecified site Nausea and vomiting, unspecified vomiting type [facility]* Diagnosis Pain of right hip- Primary [facility] Diagnosis URI, acute- Primary Acute upper respiratory infections of unspecified site [facility]* Diagnosis Acute midline low back pain without sciatica- Primary Dizziness Dizziness and giddiness Nausea and vomiting, unspecified vomiting type [facility]* Diagnosis Nausea- Primary Nausea alone [facility]* Diagnosis Viral syndrome- Primary Unspecified viral infection, in conditions classified elsewhere and of unspecified site documented in this encounter [facility] for referral (narrative)* Diagnostic Procedure Only (Urgent) - Closed Specialty Diagnoses / Procedures Referred By George t Referred To Contact XR IMAGING Diagnoses Pain of right hip Procedures XR HIP GENERAL 3V PELV/AP/LAT RIGHT RADEX HIP UNILATERAL WITH PELVIS 2-3 VIEWS Avril Rhoades APRN.RUNNING RIGGER [address] [place] [address] [place] [id number] Referral ID Status Reason Start Date Expiration Date V isits Requested Visits Authorized [id number] Closed Auto-Generated Referral Clearance Not Met -Financial Clearance Bypassed 08/24/2023 09/22/2024 1 1 [facility] Reason for Referral Specialty Diagnoses / Procedures Referred By Contac t Referred To Contact [facility] Diagnoses Chronic right-sided low back pain with right-sided sciatica Procedures CONSULT TO PHYSICAL THERAPY PHYSICAL THERAPY EVALUATION HIGH COMPLEX 45 MINS Fouzia Amezquita APRN.IND[employer] VAT TENDER CLOTH [address] [place] [address] [facility] [place] [address] [place] [address] Referral ID Status Reason Start Date Expiration Date Visits Requested Visits Authorized [id number] Pending Review Auto-Generat ed Referral 03/11/2022 03/11/2023 1 1 Specialty Diagnoses / Procedures Referred By Contac t Referred To Contact Diagnoses Well woman exam with routine gynecological exam Procedures CONSULT TO SQL DATABASE DEVELOPER OFFICE/OUTPATIENT NEW [facility] MDM 60-74 MINUTES Fouzia Amezquita APRN.[employer] VAT TENDER CLOTH [address] [place] [address] Referral ID Status Reason Start Date Expiration Date Visits Requested Visits Authorized [id number] Authorized PCP Requested Referral Auto-Generate d Referral 03/11/2022 03/11/2023 1 1 Specialty Diagnoses / Procedures Referred By Contac t Referred To Contact Orthopedics Diagnoses Injury of left knee, subsequent encounter Acute pain of left knee Procedures CONSULT TO ORTHOPAEDICS OFFICE/OUTPATIENT NEW HIGH MDM 60-74 MINUTES Fouzia Amezquita, GUN WELDER.INDIGO VAT TENDER CLOTH [address] [place] [address] Referral ID Status Reason Start Date Expiration Date Visits Requested Visits Authorized [id number] Pending Review PCP Requested Referral 09/25/2023 1 1 Health Concerns Infection Onset [...] or prosecute any alcohol or drug abuse patient.[facility] the event this information is protected by the Federal Confidentiality of Alcohol and Drug Abuse Patient Records regulations: The Federal rules restrict any use of the information to criminally investigate or prosecute any alcohol or drug abuse patient.[facility] the event this information is protected by the Federal Confidentiality of Alcohol and Drug Abuse Patient Records regulations: The Federal rules restrict any use of the information to criminally investigate or prosecute any alcohol or drug abuse patient.[facility] HospitalIn the event this information is protected by the Federal Confidentiality of Alcohol and Drug Abuse Patient Records regulations: The Federal rules restrict any use of the information to criminally investigate or prosecute any alcohol or drug abuse patient.[facility] HospitalIn the event this information is protected by the Federal Confidentiality of Alcohol and Drug Abuse Patient Records regulations: The Federal rules restrict any use of the information to criminally investigate or prosecute any alcohol or drug abuse patient.[facility] HospitalIn the event this information is protected by the Federal Confidentiality of Alcohol and Drug Abuse Patient Records regulations: The Federal rules restrict any use of the information to criminally investigate or prosecute any alcohol or drug abuse patient.[facility] HospitalIn the event this information is protected by the Federal Confidentiality of Alcohol and Drug Abuse Patient Records regulations: The Federal rules restrict any use of the information to criminally investigate or prosecute any alcohol or drug abuse patient.[facility] HospitalIn the event this information is protected by the Federal Confidentiality of Alcohol and Drug Abuse Patient Records regulations: The Federal rules restrict any use of the information to criminally investigate or prosecute any alcohol or drug abuse patient.[facility] HospitalIn the event this information is protected by the Federal Confidentiality of Alcohol and Drug Abuse Patient Records regulations: The Federal rules restrict any use of the information to criminally investigate or prosecute any alcohol or drug abuse patient.[facility] HospitalIn the event this information is protected by the Federal Confidentiality of Alcohol and Drug Abuse Patient Records regulations: The Federal rules restrict any use of the information to criminally investigate or prosecute any alcohol or drug abuse patient.[facility] HospitalIn the event this information is protected by the Federal Confidentiality of Alcohol and Drug Abuse Patient Records regulations: The Federal rules restrict any use of the information to criminally investigate or prosecute any alcohol or drug abuse patient.[facility] HospitalIn the event this information is protected by the Federal Confidentiality of Alcohol and Drug Abuse Patient Records regulations: The Federal rules restrict any use of the information to criminally investigate or prosecute any alcohol or drug abuse patient.[facility] HospitalIn the event this information is protected by the Federal Confidentiality of Alcohol and Drug Abuse Patient Records regulations: The Federal rules restrict any use of the information to criminally investigate or prosecute any alcohol or drug abuse patient.[facility] HospitalIn the event this information is protected by the Federal Confidentiality of Alcohol and Drug Abuse Patient Records regulations: The Federal rules restrict any use of the information to criminally investigate or prosecute any alcohol or drug abuse patient.[facility] HospitalIn the event this information is protected by the Federal Confidentiality of Alcohol and Drug Abuse Patient Records regulations: The Federal rules restrict any use of the information to criminally investigate or prosecute any alcohol or drug abuse patient.[facility] HospitalIn the event this information is protected by the Federal Confidentiality of Alcohol and Drug Abuse Patient Records regulations: The Federal rules restrict any use of the information to criminally investigate or prosecute any alcohol or drug abuse patient.[facility] HospitalIn the event this information is protected by the Federal Confidentiality of Alcohol and Drug Abuse Patient Records regulations: The Federal rules restrict any use of the information to criminally investigate or prosecute any alcohol or drug abuse patient.[facility] HospitalIn the event this information is protected by the Federal Confidentiality of Alcohol and Drug Abuse Patient Records regulations: The Federal rules restrict any use of the information to criminally investigate or prosecute any alcohol or drug abuse patient.[facility] HospitalIn the event this information is protected by the Federal Confidentiality of Alcohol and Drug Abuse Patient Records regulations: The Federal rules restrict any use of the information to criminally investigate or prosecute any alcohol or drug abuse patient.[facility] HospitalIn the event this information is protected by the Federal Confidentiality of Alcohol and Drug Abuse Patient Records regulations: The Federal rules restrict any use of the information to criminally investigate or prosecute any alcohol or drug abuse patient.[facility] HospitalIn the event this information is protected by the Federal Confidentiality of Alcohol and Drug Abuse Patient Records regulations: The Federal rules restrict any use of the information to criminally investigate or prosecute any alcohol or drug abuse patient.[facility] HospitalIn the event this information is protected by the Federal Confidentiality of Alcohol and Drug Abuse Patient Records regulations: The Federal rules restrict any use of the information to criminally investigate or prosecute any alcohol or drug abuse patient.[facility] HospitalIn the event this information is protected by the Federal Confidentiality of Alcohol and Drug Abuse Patient Records regulations: The Federal rules restrict any use of the information to criminally investigate or prosecute any alcohol or drug abuse patient.[facility] HospitalIn the event this information is protected by the Federal Confidentiality of Alcohol and Drug Abuse Patient Records regulations: The Federal rules restrict any use of the information to criminally investigate or prosecute any alcohol or drug abuse patient.[facility] HospitalIn the event this information is protected by the Federal Confidentiality of Alcohol and Drug Abuse Patient Records regulations: The Federal rules restrict any use of the information to criminally investigate or prosecute any alcohol or drug abuse patient.[facility] Reason for Visit (unrecogniz ed section and content) Reason Comments Yearly Exam Specialty Diagnoses / Procedures Referred By Contac t Referred To Contact Diagnoses Well woman exam with routine gynecological exam Procedures CONSULT TO SQL DATABASE DEVELOPER OFFICE/OUTPATIENT NEW HIGH MDM 60-74 MINUTES Fouzia Amezquita, GUN WELDER.INDIGO VAT TENDER CLOTH [address] [place] [address] Referral ID Status Reason Start Date Expiration Date V isits Requested Visits Authorized [id number] Closed PCP Requested Referral Auto-Generated Referral 03/11/2022 03/11/2023 1 1 Reason Comments Results New Medication Reason Comments Consult [facility] Assessment In P erson Pt Cancelled Same Day Specialty Diagnoses / Procedures Referred By Contac t Referred To Contact Psychiatry / ADULT PSYCHOLOGY Diagnoses 1st eval Procedures NEW PSYL ADULT Fouzia Amezquita, GUN WELDER.INDIGO VAT TENDER CLOTH [address] [place] [phone] Alicia, Jhon, PHOTONICS TECHNICIAN [address] [place] [address] Referral ID Status Reason Start Date Expiration Date V isits Requested Visits Authorized [id number] Pending Review 03/18/2022 06/16/2022 1 1 Reason Comments Urinary Frequency frequency and lower back pain x 3-4 days Reason Onset Date Comments Refill Request 07/09/2022 Reason Comments F/U 6 Month Specialty Diagnoses / Procedures Referred By Contac t Referred To Contact Internal Medicine / INTERNAL MEDICINE Diagnoses 6 month follow up Procedures 4C EST Brad Dolan MD [address] [place] [phone] Fouzia Amezquita, GUN WELDER.INDIGO VAT TENDER CLOTH [address] [place] [address] Referral ID Status Reason Start Date Expiration Date Visits Re quested Visits Authorized [id number] Closed 09/11/2022 11/15/2022 1 1 Reason Comments Knee Pain L knee. Knee popped out of place while playing pool. (uneven floor?) Specialty Diagnoses / Procedures Referred By Contac t Referred To Contact Internal Medicine / INTERNAL MEDICINE Diagnoses Knee pain left knee Well Now follow up Procedures OFFICE/OUTPATIENT ESTABLISHED MOD MDM 30-39 MIN 4C EST Self Fouzia Amezquita, GUN WELDER.INDIGO VAT TENDER CLOTH [address] [place] [address] Referral ID Status Reason Start Date Expiration Date Visits Re quested Visits Authorized [id number] Closed 09/25/2022 11/15/2022 1 1 Reason Onset Date Comments Refill Request 10/15/2022 Reason Comments Follow Up Specialty Diagnoses / Procedures Referred By Contac t Referred To Contact Internal Medicine / INTERNAL MEDICINE Diagnoses 6 month f/u - new to LDT Procedures 4C EST Fouzia Amezquita, GUN WELDER.INDIGO VAT TENDER CLOTH [address] [place] [address] Brad Dolan MD [address] [place] [address] Referral ID Status Reason Start Date Expiration Date Visits Requested Visits Authorized [id number] Denied OON Notification Letter Financial Clearance Required - OON Payor Clearance Not Met - Admin/Branch Account Executive/D irector Advise to Postpone/Resched ule or Not Proceed 2 11/15/2022 1 0 Reason Comments Pain, Throat Pt reported bilatera l ear pain, chills, cough x3 days. Specialty Diagnoses / Procedures Referred By Contac t Referred To Contact Family Medicine / [facility] Diagnoses ear pain, sore throat, bodyaches, fever, chills, cough Procedures EST SAME DAY Self Chiara Marley, GUN WELDER.RUNNING RIGGER [address] [place] [address] Referral ID Status Reason Start Date Expiration Date Visits Re quested Visits Authorized [id number] Closed 03/12/2023 11/15/2023 1 1 Reason Comments [...] Procedures EST SAME DAY Self Avril Rhoades, GUN WELDER.RUNNING RIGGER [address] [place] [address] Referral ID Status Reason Start Date Expiration Date Visits Re quested Visits Authorized [id number] Closed 08/24/2023 11/22/2023 1 1 Reason Comments Cough Cough, sinus, HICKS, sn eezing and congestion x 1 day Specialty Diagnoses / Procedures Referred By Contac t Referred To Contact Family Medicine / [facility] Diagnoses cough, sinus, headache, sneezing and congestion Procedures EST SAME DAY Self Amalia Gerard APRN.RUNNING RIGGER [address] [place] [address] Referral ID Status Reason Start Date Expiration Date Visits Re quested Visits Authorized [id number] Closed 09/04/2023 12/03/2023 1 1 Reason Comments Back Pain Mid to lower back pa in x 2 days Reason Comments Rectal Bleeding Reason Comments Patient Question Reason Comments Refill Request Reason Comments Nausea & Vomiting Fever, chills, cough , HICKS x1 day Care Teams (unrecognized sec tion and content) Exhibit Carpenter Relationship Specialty Start Date End Date Brad Dolan MD [facility] [place] [address] PCP - General Internal Medicine 03/11/22 Exhibit Carpenter Relationship Specialty Start Date End Date Brad Dolan MD [facility] [place] [address] PCP - General Internal Medicine 03/11/22 Exhibit Carpenter Relationship Specialty Start Date End Date Brad Dolan MD [facility] [place], [place] [id number] PCP - General Internal Medicine 03/11/22 Exhibit Carpenter Relationship Specialty Start Date End Date Brad Dolan MD [facility] [place], [place] [id number] PCP - General Internal Medicine 03/11/22 Exhibit Carpenter Relationship Specialty Start Date End Date Brad Dolan MD [address] [place] [address] PCP - General Internal Medicine 03/11/22 Exhibit Carpenter Relationship Specialty Start Date End Date Brad Dolan MD [address] [place] [address] PCP - General Internal Medicine 03/11/22 Exhibit Carpenter Relationship Specialty [place] [address] [place] [address], [place] [address] PCP - General Internal Medicine 03/11/22 Exhibit Carpenter Relationship Specialty Start Date End Date Brad Dolan MD [address] [place] [address] PCP - General Internal Medicine 03/11/22 Exhibit Carpenter Relationship Specialty Start Date End Date Brad Dolan MD [address] [place] [address] PCP - General Internal Medicine 03/11/22 Exhibit Carpenter Relationship Specialty Start Date End Date Brad Dolan MD [address] [place] [address] PCP - General Internal Medicine 03/11/22 Exhibit Carpenter Relationship Specialty Start Date End Date Brad Dolan MD [address] [place] [address] PCP - General Internal Medicine 03/11/22 Exhibit Carpenter Relationship Specialty Start Date End Date Brad Dolan MD [address] [place] [address] [place] [address] PCP - General Internal Medicine 03/11/22 Exhibit Carpenter Relationship Specialty Start Date End Date Brad Dolan MD [address] [place] [address] PCP - General Internal Medicine 03/11/22 Exhibit Carpenter Relationship Specialty Start Date End Date Brad Dolan MD [address] [place] [address] PCP - General Internal Medicine 03/11/22 Exhibit Carpenter Relationship Specialty Start Date End Date Brad Dolan MD [address] [place] [address] PCP - General Internal Medicine 03/11/22 Exhibit Carpenter Relationship Specialty Start Date End Date Brad Dolan MD [address] [place] [address] PCP - General Internal Medicine 03/11/22 Exhibit Carpenter Relationship Specialty Start Date End Date Brad Dolan MD [address] [place] [address] PCP - General Internal Medicine 03/11/22 Exhibit Carpenter Relationship Specialty Start Date End Date Brad Dolan MD [address] [place] [address] PCP - General Internal Medicine 03/11/22 Exhibit Carpenter Relationship Specialty Start Date End Date Brad Dolan MD [address] [place] [address] PCP - General Internal Medicine 03/11/22 INFORMATION [...] BE BASED ON THE PRIMARY CLINICAL RECORDS. [facility] [facility]. provides no warranty or guarantee of the accuracy or completeness of information in this document.
[2024-01-06 09:33] LABS: Hematocrit 41.4 % (37-47); Hemoglobin 13.6 g/dL (12.0-15.0); Mean Corp Hgb Conc 32.9 g/dL (32-36); Mean Corpuscular Hgb 29.8 pg (27.0-32.0); Mean Corpuscular Volume 90.6 fL (81-99); Mean Platelet Vol. 9.8 fl (6.2-12.0); Platelet Count 295 K/mm3 (150-450); RBC Distribution Width CV 12.4 % (11.6-14.6); RBC Distribution Width SD 40.6 fl (35.1-43.9); Red Blood Count 4.57 M/mm3 (4.2-5.4); White Blood Count 9.5 K/mm3 (4.4-11.0)
[2024-01-06 09:46] LABS: ALB/GLOB Ratio 1.1 RATIO (0.9-2.4); AST(SGOT) 15 U/L (15-37); Alanine Aminotransfer ALT/SGPT 11 U/L (13-56); Albumin, Serum 3.7 g/dL (3.2-5.0); Alkaline Phosphatase 70 U/L (45-117); Anion Gap 4 (5-15); BUN 17 mg/dL (7-18); BUN/Creat Ratio 19.4 RATIO (10-20); Calcium,Total 8.7 mg/dL (8.5-10.1); Chloride 108 mmol/L (98-107); Creatinine, Serum 0.88 mg/dL (0.55-1.02); EST Glomerular Filtration Rate 78 mL/min (>60); Est Glom Filt Rate - Afr Amer 94 mL/min (>60); Globulin 3.5 g/dL (2.2-4.2); Glucose 96 mg/dL (74-106); Potassium 4.1 mmol/L (3.5-5.1); Protein, Total 7.2 g/dL (6.4-8.2); Sodium Level 137 mmol/L (136-145)
[2024-01-06 10:36] VITALS: BP 122/84; PULSE 68; RESP 16; TEMP 36.5; O2SAT 99
== END 2024-01-06 10:37 | disposition home or self-care (01) ==
PROVIDERS: Emergency Provider Emergency Medicine; PCP Internal Medicine; Visit Provider Emergency Medicine
DX: G43.909 Migraine, unspecified, not intractable, without status migrainosus (principal); F31.9 Bipolar disorder, unspecified; K50.90 Crohn's disease, unspecified, without complications; R11.2 Nausea with vomiting, unspecified; R19.7 Diarrhea, unspecified; Z79.899 Other long term (current) drug therapy; Z87.891 Personal history of nicotine dependence
CPT/HCPCS: 80053; 85027; 96361; 96374; 96375; 99283; J7030; A4216; J2405

== ENCOUNTER 2024-02-16 22:21 | Emergency (ER) | payer OTHER, SELFPAY ==
[2024-02-16 22:22] VITALS: BP 124/74; PULSE 85; RESP 16; TEMP 36.3; O2SAT 96; BMI 30.5
--- NOTE | 2024-02-16 22:24 | EX.ED.GENINJ ---
HPI History of Present Illness Chief Complaint: Other, Pain/Inj PFSH PFSH Medical History Alcohol use Anxiety Arthritis Asthma Back pain Bipolar disorder Easy bruising Gastric reflux History of irregular heartbeat History of pain when walking History of steroid therapy Injury of head and neck Loss of consciousness Low iron Marijuana use Migraine Restless legs Shortness of breath on exertion Syncope Wears glasses Home Medications fluoxetine 40 mg capsule 40 mg PO DAILY bipolar 01/13/22 [History Last Taken 12/02/23] prochlorperazine maleate 10 mg tablet 10 mg PO Q8H PRN nausea and vomiting #90 tabs 11/10/23 [Rx Last Taken Unknown] pantoprazole 20 mg tablet,delayed release 20 mg PO DAILY 11/19/23 [History Last Taken Unknown] hyoscyamine sulfate 0.125 mg tablet 0.125 mg PO BID PRN abdominal pain #30 tabs 12/02/23 [Rx Last Taken Unknown] sucralfate 1 gram tablet (Carafate) 1 g PO QAC #90 tabs 12/25/23 [Rx Last Taken Unknown] ketorolac 10 mg tablet 10 mg PO Q8H PRN pain #10 tabs 01/06/24 [Rx Last Taken Unknown] ondansetron 4 mg disintegrating tablet 4 mg PO Q6H PRN nausea and vomiting #7 tabs 01/06/24 [Rx Last Taken Unknown] budesonide 3 mg capsule,delayed,extended release 9 mg (3 x 3 mg) PO DAILY #90 ea 02/02/24 [Rx Last Taken Unknown] ibuprofen 100 mg/5 mL oral suspension 400 mg (20 mL) PO Q6H PRN pain #473 mL 02/16/24 [Rx Last Taken Unknown] Allergy/AdvReac Type Severity Reaction Status Date / Time sumatriptan [From Imitrex] Allergy Mild Other Verified 02/16/24 22:23 Surgical History Hx of tonsillectomy Social History Smoking Status: Former smoker alcohol intake: current substance use type: does not use EXAM Physical Exam Const Vital Signs: 02/16/24 22:22 02/16/24 22:21 Temperature 97.4 F L Temperature Source Temporal Pulse Rate 85 Respiratory Rate 16 Respiratory Effort Normal Respiratory Pattern Normal Blood Pressure 124/74 H Blood Pressure Mean 90 Pulse Ox 96 Oxygen Delivery Method Room Air [place] Narrative Medical decision making narrative: HISTORY OF PRESENT ILLNESS: 34-year-old female presents with decreased range of motion. Stated Adderall popped 3 days ago. States it is locked in place. She further states she has pain particular right jaw area just front of her right ear. No trauma. No falls. No drooling, no pooling secretions, no neck stiffness, no fever, no sore throat. Notes pain is worse with movement, she was limited joint range of motion REVIEW OF SYSTEMS: Pertinent positives: Decreased mobility of her jaw Pertinent negatives: Drooling, neck pain, sore throat, fever, chest pain PHYSICAL EXAM: Nursing triage notes reviewed, Vital signs reviewed Constitutional: please see mdm HENT: MMM, speaking full sentences, normal jaw excursion, no obvious trauma, strong bite, no jaw malocclusion, limited jaw opening mild trismus but no submandibular edema or erythema Eyes: Pupils equal round and reactive to light, Extraocular muscles intact Neck: No stridor, no JVD, full neck ROM Lungs: Clear to auscultation, No wheezing or rales. No increased work of breathing, no conversational dyspnea, no accessory muscle use, no nasal flaring. No respiratory distress noted Heart: Regular rate and rhythm, No murmurs, No rubs and No gallops, 2+ distal pulses (radial, femoral, posterior tibial) in all extremities MEDICAL DECISION MAKING: Chief Complaint: Decreased range of motion External records reviewed: No recent advanced imaging of the jaw Factors affecting care: bipolar disorder, Social determinants of health: Marijuana and alcohol abuse History obtained from others: none Consults: none [facility] Narrative: Patient was hemodynamically stable, afebrile and nontoxic-appearing. Comfortable, no distress. Exam revealed patient speaking in full sentences. Patient is controlling secretions. He was in no respiratory distress. No indication for any emergent interventions at this time I considered the following differential diagnosis: Ligamentous injury about the jaw, jaw fracture/dislocation. Exam consistent with likely TMJ syndrome. There is no trauma to suggest a jaw fracture or dislocation. There is no jaw malocclusion. Recommended anti-inflammatories I recommended liquid ibuprofen and a liquid diet until inflammation resolves The patient and/or family, caregivers express understanding. The patient and/or family, caregivers agrees with the plan. Shared decision making: I will have a discussion with the patient and or visitors regarding risk/benefits of further testing or admission. They will be made aware of of the risk/benefits inherent in this decision they will be given the opportunity to voice understanding. Total critical care time today provided was at least 0 minutes. This excludes separately billable procedures. Critical care time (if documented) is secondary to the patient having high probability of clinically significant/life threatening deterioration in the patient's condition which required my urgent intervention. Impression: 1. TMJ syndrome Dispo: Discharge home This note was generated with [employer] dictation software. It may contain incorrect words, spelling, and punctuation that were not noted in review of the chart prior to signing. Discharge Plan Triage Chief Complaint: Other, Pain/Inj ED Provider: Chino Morris Dx/Rx/DC Orders Instructions: ED TMJ Syndrome Prescriptions: New ibuprofen 100 mg/5 mL suspension 400 mg PO Q6H PRN (Reason: pain) Qty: 473 0RF No Action prochlorperazine maleate 10 mg tablet 10 mg PO Q8H PRN (Reason: nausea and vomiting) Qty: 90 0RF fluoxetine 40 mg capsule 40 mg PO DAILY Patient Comments: take 1 capsule by mouth once daily pantoprazole 20 mg tablet,delayed release (DR/EC) 20 mg PO DAILY ondansetron 4 mg tablet,disintegrating 4 mg PO Q6H PRN (Reason: nausea and vomiting) Qty: 7 0RF ketorolac 10 mg tablet 10 mg PO Q8H PRN (Reason: pain) Qty: 10 0RF Rx Instructions: maximum total duration of 5 days from all oral, intranasal, or parenteral formulations hyoscyamine sulfate 0.125 mg tablet 0.125 mg PO BID PRN (Reason: abdominal pain) Qty: 30 3RF sucralfate [Carafate] 1 gram tablet 1 g PO QAC Qty: 90 0RF budesonide 3 mg capsule,delayed,extend.release 9 mg PO DAILY Qty: 90 1RF Primary Care Provider: Louann Dolan Referrals: Raciel Drake MD [Med Staff - Courtesy Staff] - Louann Dolan MD [Primary Care Provider] - Activity Restrictions/Additional Instructions: Thank you for trusting us with your care today! Please take Tylenol (2 pills, 650 mg), ibuprofen (2 pills, 400 mg) every 6 hours as needed for pain and fever control. Please return to the emergency department if your symptoms change or worsen. Specifically develop drooling, cannot control secretions, you develop sore throat, develop difficulty swallowing, develop neck pain or stiffness, develop chest pain, shortness of breath, if you lose consciousness Please follow with your primary care physician as well as ear nose and throat for further outpatient evaluation and management. Disposition Disposition: Home, Self Care
[2024-02-16] MEDS: Ibuprofen 100 MG/5 ML UDC 200 MG PO (22:49)
== END 2024-02-16 22:51 | disposition home or self-care (01) ==
LOC: ED 22:47
PROVIDERS: Emergency Provider Emergency Medicine; PCP Internal Medicine; Visit Provider Emergency Medicine
DX: M26.621 Arthralgia of right temporomandibular joint (principal); F31.9 Bipolar disorder, unspecified; F10.10 Alcohol abuse, uncomplicated; Z79.899 Other long term (current) drug therapy; Z87.891 Personal history of nicotine dependence
CPT/HCPCS: 99282

== ENCOUNTER 2024-03-03 16:06 | Emergency (ER) | payer OTHER, SELFPAY ==
[2024-03-03 16:06] VITALS: BP 100/59; PULSE 104; RESP 14; TEMP 35.9; O2SAT 95; BMI 31.4
--- NOTE | 2024-03-03 16:58 | EX.ED.GENINJ ---
HPI History of Present Illness Chief Complaint: Laceration Narrative Narrative: 34 old [id number] female opened a new ceramic knife and accidentally cut her left thumb. Bleeding is controlled with gauze. She has no weakness numbness or tingling. Last tetanus unknown. PFSH [facility] Medical History Alcohol use Anxiety Arthritis Asthma Back pain Bipolar disorder Easy bruising Gastric reflux History of irregular heartbeat History of pain when walking History of steroid therapy Injury of head and neck Loss of consciousness Low iron Marijuana use Migraine Restless legs Shortness of breath on exertion Syncope Wears glasses Home Medications fluoxetine 40 mg capsule 40 mg PO DAILY bipolar 01/13/22 [History Last Taken 12/02/23] prochlorperazine maleate 10 mg tablet 10 mg PO Q8H PRN nausea and vomiting #90 tabs 11/10/23 [Rx Last Taken Unknown] pantoprazole 20 mg tablet,delayed release 20 mg PO DAILY 11/19/23 [History Last Taken Unknown] hyoscyamine sulfate 0.125 mg tablet 0.125 mg PO BID PRN abdominal pain #30 tabs 12/02/23 [Rx Last Taken Unknown] sucralfate 1 gram tablet (Carafate) 1 g PO QAC #90 tabs 12/25/23 [Rx Last Taken Unknown] ketorolac 10 mg tablet 10 mg PO Q8H PRN pain #10 tabs 01/06/24 [Rx Last Taken Unknown] ondansetron 4 mg disintegrating tablet 4 mg PO Q6H PRN nausea and vomiting #7 tabs 01/06/24 [Rx Last Taken Unknown] budesonide 3 mg capsule,delayed,extended release 9 mg (3 x 3 mg) PO DAILY #90 ea 02/02/24 [Rx Last Taken Unknown] ibuprofen 100 mg/5 mL oral suspension 400 mg (20 mL) PO Q6H PRN pain #473 mL 02/16/24 [Rx Last Taken Unknown] Allergy/AdvReac Type Severity Reaction Status Date / Time sumatriptan [From Imitrex] Allergy Mild Other Verified 03/03/24 16:09 Surgical History Hx of tonsillectomy Social History Smoking Status: Current every day smoker tobacco type: e-cigarettes alcohol intake: current substance use type: does not use ROS ROS ED ROS Narrative Neuro: Negative for motor/sensory dysfunction. Skin: Positive for laceration. Musc: Negative for joint pain, swelling. EXAM Physical Exam Narrative Exam Narrative: CONST: Patient sitting in no acute distress. EYES: Normal inspection. NECK: Normal inspection. SKIN: 2 cm laceration left hand and webspace between thumb and index finger. EXTREMITIES: Full ROM left wrist thumb and all digits, normal motor and sensory function in median radial and ulnar distributions, no tendon injury, 2+ radial pulse and brisk cap refill. NEURO: Alert and answering questions appropriately. PSYCH: Normal affect. Const Vital Signs: 03/03/24 16:06 Temperature 96.6 F L Temperature Source Temporal Pulse Rate 104 H Respiratory Rate 14 Blood Pressure 100/59 L Blood Pressure Mean 72 Pulse Ox 95 Oxygen Delivery Method Room Air PROC Procedures Lacerations left thumb: Length: 2 cm Depth: Sub Q Shape: Linear Laceration repair: Irrigated and Lidocaine Irrigated (ml): 100 Number of Sutures/Ida: 3 Suture Information: Ethilon and 5-0 MDM MDM MDM Narrative Medical decision making narrative: I repaired a 2 cm laceration on the left hand in the webspace between the thumb and index finger. Extremities neurovascular intact and there is no evidence of tendon injury. There is no concern for foreign body or indication for x-ray. 3 sutures were placed, tetanus updated, wound care instructions given and she was discharged in stable condition. Discharge Plan Triage Chief Complaint: Laceration ED Midlevel Provider: Linh Pete ED Provider: Tracey Coleman Dx/Rx/DC Orders Clinical Impression: Laceration of left thumb Instructions: ED Laceration Extremity Prescriptions: No Action prochlorperazine maleate 10 mg tablet 10 mg PO Q8H PRN (Reason: nausea and vomiting) Qty: 90 0RF fluoxetine 40 mg capsule 40 mg PO DAILY Patient Comments: take 1 capsule by mouth once daily pantoprazole 20 mg tablet,delayed release (DR/EC) 20 mg PO DAILY ibuprofen 100 mg/5 mL suspension 400 mg PO Q6H PRN (Reason: pain) Qty: 473 0RF ondansetron 4 mg tablet,disintegrating 4 mg PO Q6H PRN (Reason: nausea and vomiting) Qty: 7 0RF ketorolac 10 mg tablet 10 mg PO Q8H PRN (Reason: pain) Qty: 10 0RF Rx Instructions: maximum total duration of 5 days from all oral, intranasal, or parenteral formulations hyoscyamine sulfate 0.125 mg tablet 0.125 mg PO BID PRN (Reason: abdominal pain) Qty: 30 3RF sucralfate [Carafate] 1 gram tablet 1 g PO QAC Qty: 90 0RF budesonide 3 mg capsule,delayed,extend.release 9 mg PO DAILY Qty: 90 1RF Primary Care Provider: Louann Dolan Referrals: Louann Dolan MD [Primary Care Provider] - Activity Restrictions/Additional Instructions: You can shower but do not keep your hand submerged underwater. Pat dry and keep covered and clean. Stitches need removed in 7 days. If any signs of infection develop return sooner?this includes redness, swelling, pus, increased pain, or fever. Disposition Disposition: Home, Self Care
[2024-03-03] MEDS: Lidocaine 1% (20 ml mdv) 20 ML Vial INFILT (17:05)
[2024-03-03] MEDS: Diphth,Pertuss(Acell),Tet Vac 0.5 ML Vial IM (17:05)
== END 2024-03-03 17:51 | disposition home or self-care (01) ==
PROVIDERS: Emergency Provider Emergency Medicine; PCP Internal Medicine; Visit Provider Emergency Medicine
DX: S61.012A Laceration without foreign body of left thumb without damage to nail, initial encounter (principal); F31.9 Bipolar disorder, unspecified; W26.0XXA Contact with knife, initial encounter; Z23 Encounter for immunization; F17.290 Nicotine dependence, other tobacco product, uncomplicated; Z79.899 Other long term (current) drug therapy
CPT/HCPCS: 12001; 90471; 90715; 99283

== ENCOUNTER 2024-04-29 14:36 | Emergency (ER) | payer OTHER, SELFPAY ==
[2024-04-29 14:38] VITALS: BP 108/84; PULSE 95; RESP 18; TEMP 35.9; O2SAT 96; BMI 29.7
--- NOTE | 2024-04-29 15:07 | EX.ED.DYSGE1 ---
HPI History of Present Illness Chief Complaint: Chest Other Informant: patient Onset/Context/Timing Onset: Yesterday Context: Gradual Onset Timing: Continuous Quality: Sharp, pressure Location: Epigastric, substernal Worsened by: Nothing Relieved by: Tylenol Narrative Narrative: Patient presents with pain in her epigastric area that radiates up into her chest. Patient states it began last night and has gotten progressively worse. Patient describes her pain as a sharp pain and pressure. Patient admits to some nausea but denies any vomiting. Patient denies any shortness of breath but admits to a slight cough. Patient denies any sputum production. Patient denies any fevers or chills. Patient states she took some Tylenol which helped with her pain. [facility] Medical History Wears glasses Anxiety Alcohol use Marijuana use History of steroid therapy Arthritis Low iron Easy bruising Restless legs Back pain Loss of consciousness Injury of head and neck Syncope Gastric reflux Asthma Shortness of breath on exertion History of pain when walking History of irregular heartbeat Migraine Bipolar disorder Home Medications ?Medication ?Instructions ?Recorded ?Last Taken ?Type fluoxetine 40 mg capsule 40 mg PO DAILY bipolar 01/13/22 12/02/23 History prochlorperazine maleate 10 mg 10 mg PO Q8H PRN nausea and 11/10/23 Unknown Rx tablet vomiting #90 tabs hyoscyamine sulfate 0.125 mg tablet 0.125 mg PO BID PRN abdominal pain 12/02/23 Unknown Rx #30 tabs ketorolac 10 mg tablet 10 mg PO Q8H PRN pain #10 tabs 01/06/24 Unknown Rx ondansetron 4 mg disintegrating 4 mg PO Q6H PRN nausea and 01/06/24 Unknown Rx tablet vomiting #7 tabs budesonide 3 mg 9 mg (3 x 3 mg) PO DAILY #90 ea 02/02/24 Unknown Rx capsule,delayed,extended release ibuprofen 100 mg/5 mL oral 400 mg (20 mL) PO Q6H PRN pain 02/16/24 Unknown Rx suspension #473 mL sucralfate 1 gram tablet 1 g PO DAILY #90 TABLETS 03/14/24 Unknown Rx pantoprazole 20 mg tablet,delayed 20 mg PO BID #60 TABLETS 04/29/24 Unknown Rx release Allergy/AdvReac Type Severity Reaction Status Date / Time sumatriptan (From Imitrex) Allergy Mild Other Verified 04/29/24 14:38 Surgical History Hx of tonsillectomy Social History Smoking Status: Current every day smoker tobacco type: e-cigarettes alcohol intake: current substance use type: does not use ROS ROS ED Constitutional Constitutional ED: Denies chills or fever(s) Eyes Eyes: Reports change in vision; Denies blurry vision ENT ENT ED: Denies rhinorrhea or sore throat Cardiovascular Cardiovascular: Reports chest pain; Denies palpitations Respiratory/Chest Respiratory/Chest: Reports cough; Denies dyspnea or sputum Gastrointestinal Gastrointestinal: Reports nausea; Denies vomiting Genitourinary Genitourinary ED: Denies dysuria or hematuria Musculoskeletal Musculoskeletal: Denies back pain or neck pain Integumentary Denies abscess or rash Neurologic Neurologic: Denies headache(s) or weakness Allergic/Immunologic Allergic/Immunologic ED: Denies mouth swelling or urticaria EXAM Physical Exam Const Vital Signs: 04/29/24 14:38 04/29/24 14:46 Temperature 96.6 F L Temperature Source Temporal Pulse Rate 95 Respiratory Rate 18 Respiratory Effort Normal Non-Labored Respiratory Depth Normal Respiratory Pattern Normal Blood Pressure 108/84 H Blood Pressure Mean 92 Pulse Ox 96 Oxygen Delivery Method Room Air Positive well nourished and well developed General Appearance ED: well developed and NAD HEENT Reports moist mucous membranes Neck supple and no JVD Chest Wall Chest Narrative: There is mild tenderness to palpation over the surgical area. There is no bony crepitance or step-off noted. There is no subcutaneous emphysema palpated. Resp normal respiratory effort and clear to auscultation bilaterally Cardio regular rate and regular rhythm GI non-distended Palpation: soft and tender epigastric; Negative for guarding or rebound tenderness present Extremity normal to inspection General Extremety ED: Negative for edema or tenderness General Extremity: Negative for edema Neuro oriented x3, CN's II-XII intact bilaterally and no sensory deficits noted Sensorium / Orientation: alert Motor Exam: strength 5/5 throughout MDM MDM MDM Narrative Medical decision making narrative: Differential diagnosis includes cardiac dysrhythmia, cardiac ischemia, GERD, cholecystitis, cholelithiasis, pancreatitis, pneumonia, pneumothorax, musculoskeletal pain, and anxiety. EKG will be obtained to assess for cardiac dysrhythmia and cardiac ischemia. Chest x-ray will be obtained to assess for pneumonia and pneumothorax. CBC will be obtained to assess for leukocytosis and anemia. Comprehensive metabolic profile will be obtained to assess for electrolyte abnormality and renal function. Lipase will be obtained to assess for pancreatitis. Serum hCG will be obtained to assess for . Lab Data Attestation: I reviewed the patient's lab results. Lab results narrative: CBC was reviewed and was within normal limits. Comprehensive metabolic profile was reviewed and was within normal limits. Lipase was reviewed and was normal at 23. High-sensitivity troponin was reviewed and was less than 3. Serum hCG was reviewed and was negative. Urinalysis was reviewed. There is no evidence of urinary tract infection or hematuria. Labs: Laboratory Results - last 24 hr 04/29/24 04/29/24 15:20 16:05 WBC 10.1 RBC 4.40 Hgb 13.1 Hct 39.6 MCV 90.0 MCH 29.8 MCHC 33.1 RDW Std Deviation 41.0 RDW Coeff of Duy 12.4 Plt Count 289 MPV 10.1 Immature Gran % (Auto) 0.300 Neut % (Auto) 52.5 Lymph % (Auto) 25.0 [place] % (Auto) 6.4 Eos % (Auto) 14.9 H Baso % (Auto) 0.9 Absolute Neuts (auto) 5.3 Absolute Lymphs (auto) 2.54 Nucleated RBC % 0 Sodium 139 Potassium 3.9 Chloride 106 Carbon Dioxide 25.0 Anion Gap 8 BUN 12 Creatinine 0.88 Estim Creat Clear Calc 86.27 Est GFR (MDRD) Af Amer 93 Est GFR (MDRD) Non-Af 77 BUN/Creatinine Ratio 13.6 Glucose 98 Calcium 9.1 Total Bilirubin 0.40 AST 19 ALT 13 Alkaline Phosphatase 56 Troponin I High Sens < 3 L Total Protein 7.0 Albumin 3.6 Globulin 3.4 Albumin/Globulin Ratio 1.1 Lipase 23 Serum , Qual NEGATIVE Urine Color Yellow Urine Clarity Clear Urine pH 7.0 Ur Specific [place] 1.010 Urine Protein Negative Urine Glucose (UA) Normal Urine Ketones Negative Urine Occult Blood Negative Urine Nitrite Negative Urine Bilirubin Negative Urine Urobilinogen Normal Ur Leukocyte Esterase 25 H Urine RBC 0 SEEN Urine WBC 0-5 SEEN Ur Squamous Epith Cells 0-5 SEEN Urine Bacteria RARE Urine Mucus 0 SEEN EKG Initial EKG: Attestation: I personally reviewed and interpreted this EKG as follows: Interpretation: Sinus Rhythm (63) and No Acute Injury Pattern Comments: EKG was obtained. On my independent interpretation, it showed a normal sinus rhythm with a rate of 63. AL interval, QRS interval, and QTc intervals were all normal. [place] was normal. There are no acute ST or T wave changes. Prior EKG tracings: not available for review Prior: No Prior Treatment and Re-Evaluation :: Patient was given IV fluids. Patient was given a GI cocktail. Patient states the GI cocktail helped which she was still having some pain. Patient was advised that this could be reflux symptoms causing her pain. Patient was advised of her findings. Patient has a HEART score of 0. Patient was advised that this is low risk for acute cardiac event. Patient was given a prescription for omeprazole. Patient was instructed to follow-up with her primary care physician in 5 to 7 days. Patient was instructed to return if worse in any way. Patient understood and was agreeable with the plan. All questions were answered. Discharge Plan Triage Chief Complaint: Chest Other Other Complaint: Shortness of Breath ED Provider: Ernesto Burt Dx/Rx/DC Orders Clinical Impression: GERD (gastroesophageal reflux disease), Chest pain due to GERD Instructions: ED GERD (Adult) Prescriptions: Continued pantoprazole 20 mg tablet,delayed release (DR/EC) 20 mg PO BID Qty: 60 1RF No Action prochlorperazine maleate 10 mg tablet 10 mg PO Q8H PRN (Reason: nausea and vomiting) Qty: 90 0RF fluoxetine 40 mg capsule 40 mg PO DAILY Patient Comments: take 1 capsule by mouth once daily ibuprofen 100 mg/5 mL suspension 400 mg PO Q6H PRN (Reason: pain) Qty: 473 0RF ondansetron 4 mg tablet,disintegrating 4 mg PO Q6H PRN (Reason: nausea and vomiting) Qty: 7 0RF ketorolac 10 mg tablet 10 mg PO Q8H PRN (Reason: pain) Qty: 10 0RF Rx Instructions: maximum total duration of 5 days from all oral, intranasal, or parenteral formulations hyoscyamine sulfate 0.125 mg tablet 0.125 mg PO BID PRN (Reason: abdominal pain) Qty: 30 3RF budesonide 3 mg capsule,delayed,extend.release 9 mg PO DAILY Qty: 90 1RF sucralfate 1 gram tablet 1 g PO DAILY Qty: 90 0RF Primary Care Provider: Louann Dolan Referrals: Louann Dolan MD [Primary Care Provider] - 5-7 Days Print Language: Mongolian Disposition Disposition: Home, Self Care
--- NOTE | 2024-04-29 15:20 | EKG12_ITS ---
Test Reason : CHEST OTHER Blood Pressure : / mmHG Vent. Rate : 063 BPM Atrial Rate : 063 BPM P-R Int : 126 ms QRS Dur : 096 ms QT Int : 428 ms P-R-T Axes : 058 016 034 degrees QTc Int : 437 ms Normal sinus rhythm with sinus arrhythmia Normal ECG Confirmed by IVANA JOHNSON, JL ([id number]), editorial director VINEET RODARTE ([id number]) on 05/02/2024 9:44:55 AM Referred By: Confirmed By:JOSS HEATH MD
--- NOTE | 2024-04-29 15:24 | NURSING ---
NO OLD EKGS
[2024-04-29] MEDS: 0.9% Normal Saline (1000mL) 1,000 ML 999 ML IV (15:28)
[2024-04-29] MEDS: Lidocaine 2% Viscous15 ML UDC 15 ML PO (15:28)
[2024-04-29] MEDS: Mag Hydrox/Al Hydrox/Simeth 30 ML UDC PO (15:28)
[2024-04-29 15:30] LABS: Absolute Lymphocyte Count 2.54 X10^3/uL (0.83-4.51); Absolute Neutrophil Count 5.3 X10^3/uL (2.0-7.7); Basophil# 0.09 X10^3/uL; Basophil% 0.9 % (0-1); Eosinophil# 1.51 X10^3/uL; Eosinophils% 14.9 % (0-5); Hematocrit 39.6 % (37-47); Hemoglobin 13.1 g/dL (12.0-15.0); Lymphocyte # 2.54 X10^3/ul (0.83-4.51); Mean Corp Hgb Conc 33.1 g/dL (32-36); Mean Corpuscular Hgb 29.8 pg (27.0-32.0); Mean Platelet Vol. 10.1 fl (6.2-12.0); Monocyte# 0.65 X10^3/uL; Monocyte% 6.4 % (0-10); NRBC Flagged by Analyzer 0 % (0-5); Neutrophil # 5.32 X10^3/uL (2.7-7.7); Neutrophil % 52.5 % (47-70); Platelet Count 289 K/mm3 (150-450); RBC Distribution Width CV 12.4 % (11.6-14.6); White Blood Count 10.1 K/mm3 (4.4-11.0)
[2024-04-29 16:00] LABS: Internal QC Validated? YES +Cl - CLEAR BKGD; Pregnancy, Serum, hCG Quali. NEGATIVE Negative
[2024-04-29 16:07] LABS: ALB/GLOB Ratio 1.1 RATIO (0.9-2.4); AST(SGOT) 19 U/L (15-37); Alanine Aminotransfer ALT/SGPT 13 U/L (13-56); Albumin, Serum 3.6 g/dL (3.2-5.0); Alkaline Phosphatase 56 U/L (45-117); Anion Gap 8 (5-15); BUN 12 mg/dL (7-18); BUN/Creat Ratio 13.6 RATIO (10-20); Calcium,Total 9.1 mg/dL (8.5-10.1); Chloride 106 mmol/L (98-107); Creatinine, Serum 0.88 mg/dL (0.55-1.02); EST Glomerular Filtration Rate 77 mL/min (>60); Est Glom Filt Rate - Afr Amer 93 mL/min (>60); Estimated Creatinine Clearance 86.27 ml/min; Globulin 3.4 g/dL (2.2-4.2); Glucose 98 mg/dL (74-106); Lipase 23 U/L (13-75); Potassium 3.9 mmol/L (3.5-5.1); Sodium Level 139 mmol/L (136-145); Troponin-I HS < 3 pg/mL (3.0-54.0)
[2024-04-29 16:13] LABS: Mucous, Urine 0 SEEN /hpf (<or=2+); Red Blood Cells-Urine 0 SEEN /hpf (0-5)
[2024-04-29 16:23] LABS: Color, Urine Yellow (Yellow); Glucose, Dipstick Normal (Normal); Ketone-Dipstick Negative (Negative); Leukocyte Esterase-Dipstick 25 /ul (Negative); Nitrite-Dipstick Negative (Negative); Occult Blood-Urine Negative /ul (Negative); Protein-Dipstick Negative (Negative); Urine Bilirubin Dipstick Negative (Negative); Urine Clarity Clear (Clear); Urine Urobilinogen Normal (Normal)
[2024-04-29 16:31] LABS: Bacteria RARE /hpf (None Seen); Squamous Epithelial Cells - UA 0-5 SEEN /hpf (5-10); White Blood Cells 0-5 SEEN /hpf (0-5)
[2024-04-29 17:16] VITALS: BP 128/79; PULSE 82; RESP 16; TEMP 36.6; O2SAT 99
== END 2024-04-29 17:17 | disposition home or self-care (01) ==
PROVIDERS: Emergency Provider Emergency Medicine; PCP Internal Medicine; Visit Provider Emergency Medicine
DX: K21.9 Gastro-esophageal reflux disease without esophagitis (principal); R06.02 Shortness of breath; F17.290 Nicotine dependence, other tobacco product, uncomplicated; Z79.899 Other long term (current) drug therapy
CPT/HCPCS: 80053; 81001; 83690; 84484; 84703; 85025; 93005; 96360; 96361; 99283; J7030; A4216

== ENCOUNTER 2024-07-12 16:39 | Emergency (ER) | payer OTHER, SELFPAY ==
[2024-07-12 16:39] VITALS: BP 117/64; PULSE 83; RESP 18; TEMP 36.4; O2SAT 97; BMI 29.4
--- NOTE | 2024-07-12 17:00 | EX.ED.VIS.HA ---
HPI History of Present Illness Chief Complaint: Headache Informant: patient Onset/Context/Timing Onset: Days (3) Context: Sudden Timing: Continuous Quality -Headache: Positive for Similar Prior Headaches Location: Frontal Worsened by: Light Relieved by: Nothing Associated Symptoms/Injury Associated Symptoms: Positive for Nausea, Blurred Vision and Photophobia; Negative for Fever, Vomiting, Sore Throat, Sinus Pressure, Numbness, Tingling, Preceding Aura, Visual Changes or Visual Loss Injury - HICKS: Negative for Direct Trauma or Fall Narrative Narrative: Patient presents with a migraine headache that has been constant for the past 3 days. Patient states it feels similar to prior migraine headaches. The patient states it is over the frontal area. Patient states it is worse with light. Patient admits to some nausea. Patient also admits to some photophobia and blurry vision. Patient denies any fevers or chills. Patient denies any scotoma. Patient denies any preceding auras. Patient denies any paresthesias. Prior similar symptoms: Yes PFSH [facility] Medical History Crohn disease Wears glasses Anxiety Alcohol use Marijuana use History of steroid therapy Arthritis Low iron Easy bruising Restless legs Back pain Loss of consciousness Injury of head and neck Syncope Gastric reflux Asthma Shortness of breath on exertion History of pain when walking History of irregular heartbeat Migraine Bipolar disorder Home Medications ?Medication ?Instructions ?Recorded ?Last Taken ?Type fluoxetine 40 mg capsule 40 mg PO DAILY bipolar 01/13/22 12/02/23 History ondansetron 4 mg disintegrating 4 mg PO Q6H PRN nausea and 01/06/24 Unknown Rx tablet vomiting #7 tabs ibuprofen 100 mg/5 mL oral 400 mg (20 mL) PO Q6H PRN pain 02/16/24 Unknown Rx suspension #473 mL pantoprazole 20 mg tablet,delayed 20 mg PO BID #60 TABLETS 04/29/24 Unknown Rx release budesonide 3 mg 6 mg (2 x 3 mg) PO DAILY #60 ea 06/23/24 Unknown Rx capsule,delayed,extended release buspirone 5 mg tablet 5 mg PO BID #60 tabs 06/23/24 Unknown Rx metoclopramide HCl 5 mg tablet 5 mg PO TID #90 tabs 06/23/24 Unknown Rx (Reglan) Allergy/AdvReac Type Severity Reaction Status Date / Time sumatriptan (From Imitrex) Allergy Mild Other Verified 07/12/24 16:39 Surgical History Hx of tonsillectomy Social History Smoking Status: Current every day smoker tobacco type: e-cigarettes alcohol intake: current substance use type: does not use ROS ROS ED Constitutional Constitutional ED: Denies chills or fever(s) Eyes Eyes: Reports blurry vision; Denies diplopia ENT ENT ED: Denies rhinorrhea or sore throat Cardiovascular Cardiovascular: Denies chest pain or palpitations Respiratory/Chest Respiratory/Chest: Denies cough or dyspnea Gastrointestinal Gastrointestinal: Reports nausea; Denies vomiting Genitourinary Genitourinary ED: Denies dysuria or hematuria Musculoskeletal Musculoskeletal: Reports back pain and neck pain Integumentary Denies abscess or rash Neurologic Neurologic: Reports headache(s); Denies weakness Allergic/Immunologic Allergic/Immunologic ED: Denies mouth swelling or urticaria EXAM Physical Exam Const Vital Signs: 07/12/24 16:39 07/12/24 18:36 Temperature 97.6 F L Temperature Source Temporal Pulse Rate 83 89 Respiratory Rate 18 16 Blood Pressure 117/64 109/62 Blood Pressure Mean 81 77 Pulse Ox 97 98 Oxygen Delivery Method Room Air Room Air Positive well nourished and well developed Constitutional Narrative: Patient is resting comfortably in a dark room. Patient is text messaging on her phone. General Appearance ED: well developed and NAD HEENT Reports normocephalic Neck supple and no JVD Resp normal respiratory effort and clear to auscultation bilaterally Cardio regular rate and regular rhythm GI non-tender and non-distended Extremity normal to inspection and full ROM Neuro oriented x3, CN's II-XII intact bilaterally and no sensory deficits noted Yovani Coma Scale: document GCS findings Spontaneous Obeys Commands Oriented 15 Sensorium / Orientation: awake and alert Speech: speech normal Motor Exam: strength 5/5 throughout Psych mental status grossly normal MDM MDM MDM Narrative Medical decision making narrative: Differential diagnosis includes migraine headache, tension headache, cluster headache, and anxiety. Since patient states this is similar to prior migraine headaches, I do not feel CT scan of the brain is necessary at this time. Treatment and Re-Evaluation Narrative: Patient was given IV fluids, Reglan, Benadryl, and Toradol. Patient is feeling better on reevaluation. Patient was advised to rest in a dark quiet room. Patient was instructed to drink plenty of fluids. Patient was instructed to follow-up with her primary care physician in 5 to 7 days. Patient understood and was agreeable with plan. All questions were answered. Discharge Plan Triage Chief Complaint: Headache ED Provider: Ernesto Burt Dx/Rx/DC Orders Clinical Impression: Headache, migraine, Nausea Instructions: ED, Migraine (Classical) Prescriptions: No Action budesonide 3 mg capsule,delayed,extend.release 6 mg PO DAILY Qty: 60 2RF metoclopramide HCl [Reglan] 5 mg tablet 5 mg PO TID Qty: 90 1RF Rx Instructions: administer 30 minutes before meals buspirone 5 mg tablet 5 mg PO BID Qty: 60 1RF fluoxetine 40 mg capsule 40 mg PO DAILY Patient Comments: take 1 capsule by mouth once daily ibuprofen 100 mg/5 mL suspension 400 mg PO Q6H PRN (Reason: pain) Qty: 473 0RF pantoprazole 20 mg tablet,delayed release (DR/EC) 20 mg PO BID Qty: 60 1RF ondansetron 4 mg tablet,disintegrating 4 mg PO Q6H PRN (Reason: nausea and vomiting) Qty: 7 0RF Primary Care Provider: Louann Dolan Referrals: Louann Dolan MD [Primary Care Provider] - Print Language: Tamazight Disposition Disposition: Home, Self Care
[2024-07-12] MEDS: 0.9% Normal Saline (1000mL) 1,000 ML 999 ML IV (17:17)
[2024-07-12] MEDS: Ketorolac 30 MG/ML Syringe IV (17:17)
[2024-07-12] MEDS: DiphenhydrAMINE 50 MG/ML Syringe 25 MG IV (17:17)
[2024-07-12] MEDS: Metoclopramide 10 MG/2 ML Vial IV (17:18)
[2024-07-12 18:36] VITALS: BP 109/62; PULSE 89; RESP 16; O2SAT 98
[2024-07-12 19:11] VITALS: BP 109/62; PULSE 89; RESP 16; TEMP 36.4; O2SAT 98
== END 2024-07-12 19:17 | disposition home or self-care (01) ==
PROVIDERS: Emergency Provider Emergency Medicine; PCP Internal Medicine; Visit Provider Emergency Medicine
DX: G43.909 Migraine, unspecified, not intractable, without status migrainosus (principal); M54.2 Cervicalgia; R11.0 Nausea; F17.290 Nicotine dependence, other tobacco product, uncomplicated; Z79.899 Other long term (current) drug therapy
CPT/HCPCS: 96361; 96374; 96375; 99283; J7030; A4216

== ENCOUNTER 2024-08-02 12:23 | Emergency (ER) | payer OTHER, SELFPAY ==
[2024-08-02 12:24] VITALS: BP 100/63; PULSE 68; RESP 16; TEMP 36.3; O2SAT 100; BMI 29.7
--- NOTE | 2024-08-02 13:03 | CT_ITS ---
EXAM: CT HEAD WITHOUT INTRAVENOUS CONTRAST CLINICAL INDICATION: Pain TECHNIQUE: Multiple axial images were obtained of the head without intravenous contrast. This CT exam was performed using one or more of the following dose reduction techniques: automated exposure control, adjustment of the mA and/or kV according to patient size, and/or use of iterative reconstruction technique. RADIATION DOSE: CTDIvol = 44.99 mGy, DLP = 745.49 mGy-cm COMPARISON: No relevant prior studies available. FINDINGS: BRAIN AND EXTRA-AXIAL SPACES: Unremarkable. No intra- or extra-axial hemorrhage. No evidence of acute infarct. No intracranial mass or mass effect. There is preservation of the gunn/white matter interface. Posterior fossa structures are unremarkable. Ventricles are appropriate for age. No hydrocephalus. Basal cisterns are patent. BONES/JOINTS: Unremarkable. No discrete lytic or blastic abnormalities. SINUSES: Unremarkable as visualized. Clear. MASTOID AIR CELLS: Unremarkable. Clear. ORBITS: Visualized globes, extraocular muscles, optic nerves and retrobulbar fat appear unremarkable. CT/Brain/Head without Contrast IMPRESSION: Negative head/brain CT without intravenous contrast. Electronically Signed: Steve Barry MD at 13:55 EDT ,
--- NOTE | 2024-08-02 13:03 | EX.ED.VIS.HA ---
HPI History of Present Illness Chief Complaint: Headache Informant: patient Narrative Narrative: Patient states she was awakened about 6 hours ago by what feels like a severe migraine but states it is different than her typical migraine. She states she gets them frequently. She took Excedrin Migraine and it did not help and she has been nauseated with a couple dry heaves, she states sometimes it helps her migraines and sometimes it does not. She usually has bifrontal headaches this 1 is left occipital/parietal/retro-orbital. The retro-orbital component is bilateral. She feels like it is sharp behind her eye as well. She has some blurry vision and photophobia, but no peripheral neurologic symptoms or problems walking. No recent illness or head injury. She states it is unusual that it woke her up. She states her grandmother she thinks had a cerebral aneurysm but no one else in the family that she knows of. She has never been diagnosed with 1. When she gets her migraines they are typically or not any classic triggers, they occur randomly. [facility] Medical History Crohn disease Wears glasses Anxiety Alcohol use Marijuana use History of steroid therapy Arthritis Low iron Easy bruising Restless legs Back pain Loss of consciousness Injury of head and neck Syncope Gastric reflux Asthma Shortness of breath on exertion History of pain when walking History of irregular heartbeat Migraine Bipolar disorder Home Medications ?Medication ?Instructions ?Recorded ?Last Taken ?Type fluoxetine 40 mg capsule 40 mg PO DAILY bipolar 01/13/22 12/02/23 History ondansetron 4 mg disintegrating 4 mg PO Q6H PRN nausea and 01/06/24 Unknown Rx tablet vomiting #7 tabs ibuprofen 100 mg/5 mL oral 400 mg (20 mL) PO Q6H PRN pain 02/16/24 Unknown Rx suspension #473 mL pantoprazole 20 mg tablet,delayed 20 mg PO BID #60 TABLETS 04/29/24 Unknown Rx release budesonide 3 mg 6 mg (2 x 3 mg) PO DAILY #60 ea 06/23/24 Unknown Rx capsule,delayed,extended release buspirone 5 mg tablet 5 mg PO BID #60 tabs 06/23/24 Unknown Rx metoclopramide HCl 5 mg tablet 5 mg PO TID #90 tabs 06/23/24 Unknown Rx (Reglan) Allergy/AdvReac Type Severity Reaction Status Date / Time sumatriptan (From Imitrex) AdvReac Mild Other Verified 08/02/24 12:25 Surgical History Hx of tonsillectomy Social History Smoking Status: Current every day smoker tobacco type: e-cigarettes alcohol intake: current substance use type: does not use ROS ROS ED Constitutional Constitutional ED: Denies chills or fever(s) Eyes Eyes: Reports blurry vision and photophobia; Denies diplopia ENT ENT ED: Denies ear pain or sore throat Cardiovascular Cardiovascular: Denies chest pain or palpitations Respiratory/Chest Respiratory/Chest: Denies cough or dyspnea Gastrointestinal Gastrointestinal: Reports nausea and vomiting; Denies abdominal pain or diarrhea Genitourinary Genitourinary ED: Denies dysuria or urinary frequency Musculoskeletal Musculoskeletal: Denies back pain or myalgias Integumentary Denies abscess or rash Neurologic Neurologic: Reports headache(s); Denies paresthesias or weakness EXAM Physical Exam Const Vital Signs: 08/02/24 12:24 08/02/24 14:23 Temperature 97.4 F L Temperature Source Temporal Pulse Rate 68 67 Respiratory Rate 16 14 Blood Pressure 100/63 108/46 L Blood Pressure Mean 75 66 Pulse Ox 100 98 Oxygen Delivery Method Room Air Room Air Positive well nourished and well developed Constitutional Narrative: Lying in bed wearing sunglasses in dark room General Appearance ED: well developed and NAD HEENT Reports normocephalic and moist mucous membranes atraumatic Eyes PERRL, EOMs intact bilaterally and conjunctivae normal Eyes Narrative: photophobia Neck no lymphadenopathy, supple and no meningeal signs Resp normal respiratory effort and clear to auscultation bilaterally GI non-tender and non-distended Palpation: soft Extremity normal to inspection and full ROM Neuro oriented x3 and CN's II-XII intact bilaterally Sensorium / Orientation: awake and alert Speech: speech normal Gait (Neuro): normal gait Motor Exam: strength 5/5 throughout Psych mental status grossly normal Skin Lesions: no lesions Rashes: no rashes MDM MDM MDM Narrative Medical decision making narrative: Given that the patient is having severe headache, there are many migraine features, but she states is different than her usual headache, awaiting CT of the head to evaluate for hemorrhage. I reviewed the images and report which I agree with, it is negative. Although it has been 6 hours since she had the onset of headache, this does make the CT a little less sensitive for subarachnoid hemorrhage, but after giving her Reglan and Benadryl she is feeling significant improvement, and I am at a low suspicion that this is actually a subarachnoid hemorrhage. For this reason I do not think she needs an emergent LP at this time. She is in agreement. After Toradol she is doing much better and her headache is most completely gone. She is requesting discharge which is reasonable. Follow-up as needed. Radiography Diagnostic Testing: Clinical Impression(s) from Imaging Studies Brain CT 08/02/24 13:03 IMPRESSION: Negative head/brain CT without intravenous contrast. Electronically Signed: Steve Barry MD at 13:55 EDT Reading Location ID and State: [facility] [place] , Service support , Discharge Plan Triage Chief Complaint: Headache ED Provider: Michel Fernandez Dx/Rx/DC Orders Clinical Impression: Headache, migraine Instructions: ED, Migraine (Classical) Prescriptions: No Action budesonide 3 mg capsule,delayed,extend.release 6 mg PO DAILY Qty: 60 2RF metoclopramide HCl [Reglan] 5 mg tablet 5 mg PO TID Qty: 90 1RF Rx Instructions: administer 30 minutes before meals buspirone 5 mg tablet 5 mg PO BID Qty: 60 1RF fluoxetine 40 mg capsule 40 mg PO DAILY Patient Comments: take 1 capsule by mouth once daily ibuprofen 100 mg/5 mL suspension 400 mg PO Q6H PRN (Reason: pain) Qty: 473 0RF pantoprazole 20 mg tablet,delayed release (DR/EC) 20 mg PO BID Qty: 60 1RF ondansetron 4 mg tablet,disintegrating 4 mg PO Q6H PRN (Reason: nausea and vomiting) Qty: 7 0RF Primary Care Provider: Louann Dolan Referrals: Louann Dolan MD [Primary Care Provider] - 3-5 Days if not improving Print Language: Jamaican Disposition Disposition: Home, Self Care
[2024-08-02] MEDS: 0.9% Normal Saline (1000mL) 1,000 ML 999 ML IV (13:18)
[2024-08-02] MEDS: DiphenhydrAMINE 50 MG/ML Syringe 25 MG IV (13:18)
[2024-08-02] MEDS: Metoclopramide 10 MG/2 ML Vial IV (13:18)
[2024-08-02 14:23] VITALS: BP 108/46; PULSE 67; RESP 14; O2SAT 98
[2024-08-02] MEDS: Ketorolac 30 MG/ML Syringe IV (15:04)
[2024-08-02 15:26] VITALS: BP 112/73; PULSE 76; RESP 16; TEMP 36.5; O2SAT 98
== END 2024-08-02 15:30 | disposition home or self-care (01) ==
PROVIDERS: Emergency Provider Emergency Medicine; PCP Internal Medicine; Visit Provider Emergency Medicine
DX: G43.909 Migraine, unspecified, not intractable, without status migrainosus (principal); F17.290 Nicotine dependence, other tobacco product, uncomplicated
CPT/HCPCS: 70450; 96361; 96374; 96375; 99283; J7030; A4216

== ENCOUNTER 2024-12-08 16:14 | Emergency (ER) | payer OTHER, SELFPAY ==
[2024-12-08 16:14] VITALS: BP 96/80; PULSE 97; RESP 15; TEMP 35.8; O2SAT 98; BMI 30.1
--- NOTE | 2024-12-08 16:35 | EDS_ITS ---
HPI <TRUONG Orozco - Last Filed: 12/08/24 17:11> History of Present Illness Chief Complaint: Back Narrative Narrative: Patient is a 34-year-old female with history of chronic back pain, Crohn's disease, migraine headaches who presents to the [facility] for lower back pain. Patient states that she thinks she twisted wrong today at roughly 45 minutes ago, patient states the pain shoots down her lower back to her left lower leg. Denies any bowel or bladder cons. Does have history of this pain. Denies any fall or trauma. [facility] <TRUONG Orozco - Last Filed: 12/08/24 17:11> [facility] Medical History Crohn disease Wears glasses Anxiety Alcohol use Marijuana use History of steroid therapy Arthritis Low iron Easy bruising Restless legs Back pain Loss of consciousness Injury of head and neck Syncope Gastric reflux Asthma Shortness of breath on exertion History of pain when walking History of irregular heartbeat Migraine Bipolar disorder Home Medications ?Medication ?Instructions ?Recorded ?Last Taken ?Type fluoxetine 40 mg capsule 40 mg PO DAILY bipolar 01/13/22 12/02/23 History ondansetron 4 mg disintegrating 4 mg PO Q6H PRN nausea and 01/06/24 Unknown Rx tablet vomiting #7 tabs ibuprofen 100 mg/5 mL oral 400 mg (20 mL) PO Q6H PRN pain 02/16/24 Unknown Rx suspension #473 mL pantoprazole 20 mg tablet,delayed 20 mg PO BID #60 TABLETS 04/29/24 Unknown Rx release metoclopramide HCl 5 mg tablet 5 mg PO TID #90 tabs 06/23/24 Unknown Rx (Reglan) buspirone 5 mg tablet 5 mg PO BID #60 TABLETS 09/29/24 Unknown Rx budesonide 3 mg 6 mg (2 x 3 mg) PO DAILY #60 ea 10/28/24 Unknown Rx capsule,delayed,extended release hyoscyamine sulfate 0.125 mg tablet 0.125 mg PO BID PRN abdominal pain 10/28/24 Unknown Rx #30 tabs Allergy/AdvReac Type Severity Reaction Status Date / Time sumatriptan (From Imitrex) AdvReac Mild Other Verified 12/08/24 16:14 Surgical History Hx of tonsillectomy Social History Smoking Status: Current every day smoker tobacco type: e-cigarettes alcohol intake: current substance use type: does not use ROS <TRUONG Orozco - Last Filed: 12/08/24 17:11> ROS ED ROS Narrative Constitutional: Negative for fever, chills, weight loss, weakness Eyes: Negative for vision loss, vision change, double vision ENT: Negative for any sore throat, ear pain, congestion Cardiovascular: Negative for any chest pain, tightness, palpitations Respiratory: Negative for any cough, sputum production, hemoptysis, dyspnea, dyspnea on exertion, orthopnea Gastrointestinal: Negative for any abdominal pain, nausea, vomiting, diarrhea, constipation, blood in stool, blood in vomit : Negative for any urinary frequency, dysuria, retention, blood in urine Muscle skeletal: Negative for any neck pain. Positive for lower back pain Neurological: Negative for any headache, syncope, dizziness Skin: Negative for any rashes, itching, abrasions, lacerations Psychiatric: Negative for any depression, anxiety, stress, suicidal ideation, homicidal ideation Hematologic: Negative for any excessive bruising, easy bleeding EXAM <TRUONG Orozco - Last Filed: 12/08/24 17:11> Physical Exam Narrative Exam Narrative: Vital signs reviewed. HEET: Head normocephalic atraumatic, TMs clear bilaterally. Posterior pharynx is clear, moist mucous membranes. Nares clear bilaterally. Neck: Supple with no lymphadenopathy or tenderness. No signs of meningismus. Cardiac: Regular rate and rhythm no murmurs gallops or rubs, equal peripheral pulses bilaterally. Respiratory: Lungs clear to auscultation bilaterally. No chest tenderness. Abdomen: Soft, nontender, nondistended. No abdominal bruit or pulsatile masses. No hepatosplenomegaly Extremities: No peripheral edema, no signs of gross trauma or deformity. Active full range of motion of all extremities. Equal strength of bilateral lower ex tremities. Neuro: Cranial nerves II through XII intact, no focal neurological deficits. Skin: Clean dry and intact with no rash, purpura, petechiae, vesicles or pustules. No signs of trauma Backs/flank: No CVA tenderness, no midline spinal tenderness, no deformity. Psych: Normal mood and affect. No SI, HI or acute psychosis. Const Vital Signs: 12/08/24 16:14 Temperature 96.5 F L Temperature Source Temporal Pulse Rate 97 Respiratory Rate 15 Blood Pressure 96/80 Blood Pressure Mean 85 Pulse Ox 98 Oxygen Delivery Method Room Air Positive well nourished and well developed General Appearance ED: well developed <Dr. Lauri Mena MD - Last Filed: 12/08/24 17:29> Physical Exam Const Vital Signs: 12/08/24 16:14 Temperature 96.5 F L Temperature Source Temporal Pulse Rate 97 Respiratory Rate 15 Blood Pressure 96/80 Blood Pressure Mean 85 Pulse Ox 98 Oxygen Delivery Method Room Air MDM <TRUONG Orozco - Last Filed: 12/08/24 17:11> [facility] Treatment and Re-Evaluation :: Differential diagnosis includes however is not limited to: Lumbar strain, compression fracture, acute on chronic back pain, sciatica Patient appears generally well, vital signs are stable, patient is nontoxic- appearing. Presenting to the emergency department with complaints of pain to the lower lumbar spine after twisting wrong. Physical examination yields no red flag signs. Patient will receive IM Toradol, IM Norflex, Lidoderm patch. Patient will be reevaluated. On reevaluation, the patient felt improved. At this time, patient will be using [id number] ibuprofen, Tylenol at home. Instructed to perform gentle stretching. Ice and heat. Patient did receive a work note for today. Stable for discharge <Dr. Lauri Mena MD - Last Filed: 12/08/24 17:29> [facility] Narrative Medical decision making narrative: I have personally performed a face to face assessment of the patient and have reviewed the LOUISE Note. I performed a substantive portion of the visit including all aspects of the following. My vergara findings include: History is 34-year-old female history low back pain. No prior surgery. No prior MRI. Twisted and felt pain down her left leg. No weakness or numbness. No bowel or bladder retention or incontinence. No fever. No recent trauma. Exam is [well-appearing 34-year-old female. Vital signs are stable afebrile. H EENT exam pupils round react to light. Mytrex membranes. Lungs clear to auscultation. Heart regular rhythm no murmur. Rate about 95. Chest wall ribs nontender. Abdomen soft nontender. Moving all 4 extremities. Neurovascular intact. 5/5 medical coordinator pesticide use strength. Dorsi plantarflexion intact. No cauda equina. No saddle anesthesia. Normal medial thigh sensation. Negative straight leg raise bilaterally. Back reproducible pain on the paralumbar spine and over her left SI joint. This is either lumbar strain or acute sciatica.] Medical Decision Making [treated with Toradol and IM Norflex. And patient be discharged home.] Other additions or changes: [None] Discharge Plan Triage Chief Complaint: Back ED Midlevel Provider: [place] Eil ED Provider: Lauri Mena Dx/Rx/DC Orders Clinical Impression: Acute lumbar myofascial strain Instructions: Treating?Strains and Sprains, Understanding Lumbosacral Strain Prescriptions: No Action metoclopramide HCl [Reglan] 5 mg tablet 5 mg PO TID Qty: 90 1RF Rx Instructions: administer 30 minutes before meals fluoxetine 40 mg capsule 40 mg PO DAILY Patient Comments: take 1 capsule by mouth once daily ibuprofen 100 mg/5 mL suspension 400 mg PO Q6H PRN (Reason: pain) Qty: 473 0RF pantoprazole 20 mg tablet,delayed release (DR/EC) 20 mg PO BID Qty: 60 1RF ondansetron 4 mg tablet,disintegrating 4 mg PO Q6H PRN (Reason: nausea and vomiting) Qty: 7 0RF buspirone 5 mg tablet 5 mg PO BID Qty: 60 0RF budesonide 3 mg capsule,delayed,extend.release 6 mg PO DAILY Qty: 60 2RF hyoscyamine sulfate 0.125 mg tablet 0.125 mg PO BID PRN (Reason: abdominal pain) Qty: 30 3RF Stand Alone Forms: ED Work / School Excuse Primary Care Provider: Louann Dolan Referrals: Louann Dolan MD [Primary Care Provider] - Activity Restrictions/Additional Instructions: Please perform gentle stretching, ice and heat. Use [id number] ibuprofen, Tylenol. Print Language: Andorran Disposition Disposition: Home, Self Care
[2024-12-08] MEDS: Ketorolac 30 MG/ML Syringe IM (16:45)
[2024-12-08] MEDS: Orphenadrine 60 MG/2 ML Ampul IM (16:46)
[2024-12-08] MEDS: Lidocaine 5% Patch 1 PATCH TOPICAL (16:46)
[2024-12-08 17:28] VITALS: BP 101/77
[2024-12-08 17:34] VITALS: BP 101/77; PULSE 74; RESP 18; TEMP 36.7; O2SAT 99
== END 2024-12-08 17:35 | disposition home or self-care (01) ==
PROVIDERS: Emergency Provider Emergency Medicine; PCP Internal Medicine; Visit Provider Emergency Medicine
DX: S39.012A Strain of muscle, fascia and tendon of lower back, initial encounter (principal); X50.1XXA Overexertion from prolonged static or awkward postures, initial encounter; F17.290 Nicotine dependence, other tobacco product, uncomplicated
CPT/HCPCS: 96372; 99282

== ENCOUNTER 2025-02-16 10:26 | Emergency (ER) | payer OTHER, SELFPAY ==
[2025-02-16 10:27] VITALS: BP 109/60; PULSE 92; RESP 18; TEMP 36.3; O2SAT 97; BMI 29.0
--- NOTE | 2025-02-16 11:12 | CT_ITS ---
PROCEDURE: ABDOMEN/PELVIS WITH CONTRAST 02/16/2025 REASON FOR EXAM: ABD PAIN, HX CROHNS Bloody stool. TECHNIQUE: Abdomen and pelvis CT with intravenous contrast. Coronal and Sagittal reconstruction series were provided. PATIENT PREPARATION: Per protocol CONTRAST: Isovue-300 VOLUME: 99 mL One or more dose reduction techniques were used (e.g., Automated exposure control, adjustment of the mA and/or kV according to patient size, use of iterative reconstruction technique. RADIATION DOSE SUMMARY: CTDlvol: 9.7 mGy DLP: 518.23 mGycm COMPARISON: None FINDINGS: Lung bases: Unremarkable Liver: Normal size. No mass. Gallbladder: Unremarkable Spleen: Normal size. Pancreas: Normal size without evidence of mass surrounding inflammation or ductal dilation. Adrenals: Unremarkable Kidneys: Normal renal sizes. No hydronephrosis. Bladder: Unremarkable Reproductive Organs: Normal uterine size and contour. Ovaries are unremarkable. Bowel: Mild degree of circumferential wall thickening of the terminal ileum in keeping with the patient's history of Crohn's disease. No evidence of bowel obstruction. No evidence of abscess or fluid collection. Appendix: Unremarkable Lymph nodes: No suspicious lymph node enlargement. Vasculature: The abdominal aorta and IVC are normal. Peritoneum / Retroperitoneum: Unremarkable Bones: Degenerative changes of the spine. CT/Abdomen/Pelvis WITH Contrast IMPRESSION: Mild degree of circumferential wall thickening of the terminal ileum in keeping with the patient's history of Crohn's disease. No evidence of small-bowel obstruction or abnormal fluid/abscess collection. Reading Location: [place] [id number]
--- NOTE | 2025-02-16 11:13 | EX.ED.DYSGE1 ---
HPI History of Present Illness Chief Complaint: Nausea/Vomiting/Diarrhea Informant: patient Narrative Narrative: History of Crohn's and gastroparesis followed by Dr. Benoit. Reports right side abdominal pain 2 days had diarrhea that was bloody 2 days ago none since. Vomiting up to yesterday. No hematemesis. Has not drank p.o. fluids. In her PCP office blood pressure in the 90s. Was sent here. Due to her symptoms unable to take her medications for her Crohn's. Last upper and lower endoscopy a year ago by Dr. Benoit. She states she had a recent capsule study. No abdominal surgeries. Reports fevers. No urinary symptoms. Is due for menstrual period soon. History ovarian cyst with no intervention. Prior similar symptoms: Yes PFSH [facility] Medical History Crohn disease Wears glasses Anxiety Alcohol use Marijuana use History of steroid therapy Arthritis Low iron Easy bruising Restless legs Back pain Loss of consciousness Injury of head and neck Syncope Gastric reflux Asthma Shortness of breath on exertion History of pain when walking History of irregular heartbeat Migraine Bipolar disorder Home Medications ?Medication ?Instructions ?Recorded ?Last Taken ?Type fluoxetine 40 mg capsule 40 mg PO DAILY bipolar 01/13/22 12/02/23 History ondansetron 4 mg disintegrating 4 mg PO Q6H PRN nausea and 01/06/24 Unknown Rx tablet vomiting #7 tabs ibuprofen 100 mg/5 mL oral 400 mg (20 mL) PO Q6H PRN pain 02/16/24 Unknown Rx suspension #473 mL metoclopramide HCl 5 mg tablet 5 mg PO TID #90 tabs 06/23/24 Unknown Rx (Reglan) budesonide 3 mg 6 mg (2 x 3 mg) PO DAILY #60 ea 10/28/24 Unknown Rx capsule,delayed,extended release buspirone 5 mg tablet 5 mg PO BID #60 TABLETS 02/07/25 Unknown Rx hyoscyamine sulfate 0.125 mg tablet 0.125 mg PO BID PRN abdominal pain 02/07/25 Unknown Rx #30 tabs pantoprazole 20 mg tablet,delayed 20 mg PO BID #60 TABLETS 02/07/25 Unknown Rx release ciprofloxacin HCl 500 mg tablet 500 mg PO BID #20 TABLETS 02/16/25 Unknown Rx metronidazole 500 mg tablet 500 mg PO Q8H #30 tabs 02/16/25 Unknown Rx ondansetron 4 mg disintegrating 4 mg PO Q8H PRN PRN Nausea #10 tabs 02/16/25 Unknown Rx tablet oxycodone-acetaminophen 5 mg-325 1 tab PO Q6H PRN PRN Pain 3 days 02/16/25 Unknown Rx mg tablet #12 TABLETS prednisone 20 mg tablet 40 mg (2 x 20 mg) PO DAILY #60 02/16/25 Unknown Rx TABLETS Allergy/AdvReac Type Severity Reaction Status Date / Time sumatriptan (From Imitrex) AdvReac Mild Other Verified 02/16/25 10:27 Surgical History Hx of tonsillectomy Social History Smoking Status: Never smoker alcohol intake: current substance use type: does not use ROS ROS ED Constitutional Constitutional ED: Reports fever(s); Denies chills or sweats ENT ENT ED: Denies sore throat Cardiovascular Cardiovascular: Denies chest pain, leg edema, palpitations or racing heartbeat Respiratory/Chest Respiratory/Chest: Denies cough, dyspnea or dyspnea on exertion Gastrointestinal Gastrointestinal: Reports abdominal pain, diarrhea, nausea, vomiting and other Details: Blood in her stools 2 days ago. Genitourinary Genitourinary ED: Denies dysuria, hematuria or urinary frequency Musculoskeletal Musculoskeletal: Denies back pain, extremity pain or neck pain Integumentary Denies rash or wounds Neurologic Neurologic: Denies headache(s), paresthesias or weakness EXAM Physical Exam Const Vital Signs: 02/16/25 10:27 02/16/25 11:26 02/16/25 12:00 Temperature 97.3 F L Temperature Source Temporal Pulse Rate 92 69 65 Respiratory Rate 18 15 13 Blood Pressure 109/60 108/64 107/72 Blood Pressure Mean 76 78 83 Pulse Ox 97 Oxygen Delivery Method Room Air Room Air Room Air 02/16/25 13:00 02/16/25 14:39 Temperature 98.4 F Temperature Source Pulse Rate 68 82 Respiratory Rate 16 16 Blood Pressure 98/60 102/64 Blood Pressure Mean 72 76 Pulse Ox 96 Oxygen Delivery Method Positive well nourished and well developed General Appearance ED: well developed and NAD HEENT Reports moist mucous membranes normocephalic and atraumatic Eyes General Eye ED: Yes normal appearance of both eyes Neck full ROM Chest Wall Chest: Negative for tenderness Resp normal respiratory effort and normal air movement Effort and Inspection: symmetric chest movement; Negative for respiratory distress Cardio regular rate, regular rhythm and no murmurs Peripheral Pulses: pulses 2+ throughout GI normal to inspection, nondistended, normoactive bowel sounds GI Narrative: Mild tenderness right lower quadrant no guarding or rebound. Negative Goode's. Palpation: Negative for guarding or rebound tenderness present Extremity normal to inspection General Extremety ED: Negative for edema or tenderness General Extremity: Negative for edema Neuro oriented x3 and no sensory deficits noted Sensorium / Orientation: awake and alert Skin no rashes or lesions noted and no wounds MDM MDM MDM Narrative Medical decision making narrative: Interventions / MDM: Differential diagnosis: Crohn's disease vomiting diarrhea bloody stools, Diagnosis considered but do not suspect: N/A My EKG interpretation: N/A Imaging independently reviewed and interpreted by myself: CT abdomen pelvis p.o. and IV contrast: Terminal ileum thickening read by radiologist. No obstructions. External documents reviewed: N/A Test considered but not ordered:N/A ED course: Patient reports 2 days abdominal pain bloody stools 2 days ago's resolved. Vomiting up to yesterday. Has not taken p.o. intake. Vitals are stable. Minimal right lower quadrant pain. Will check abdominal labs, CT abdomen pelvis with p.o. and IV contrast with her Crohn's history for further evaluation. Fluids ordered Zofran morphine. Will reevaluate. 1335: Labs are all stable white count 8.9. Creatinine 0.[address] scan terminal ileum thickening. No obstruction. 1410: I spoke with her GI doctor Dr. Benoit, would like her to be given Solu-Medrol 80 mg IV in the department. Will plan for 40 mg p.o. prednisone daily until he follows up with her on the . Will write for a month supply. He will taper when he sees her in the office. Will start Cipro and Flagyl for 10 days. Plan of care discussed with the patient. Additional Zofran short course oxycodone for pain control. OARRS report negative. All patient's questions were answered. Re-evaluation: stable Disposition discussed with patient/family/significant other: Patient Case discussed with consulting clinician: Gastroenterology This note was generated with [employer] dictation software. It may contain incorrect words, spelling, and punctuation that were not noted in checking the note before signing. Lab Data Attestation: I reviewed the patient's lab results. Labs: Laboratory Results - last 24 hr 02/16/25 11:30 WBC 8.9 RBC 4.91 Hgb 14.6 Hct 43.3 MCV 88.2 MCH 29.7 MCHC 33.7 RDW Std Deviation 40.8 RDW Coeff of Duy 12.5 Plt Count 282 MPV 9.6 Immature Gran % (Auto) 0.300 Neut % (Auto) 64.9 Lymph % (Auto) 26.1 [place] % (Auto) 6.1 Eos % (Auto) 1.9 Baso % (Auto) 0.7 Absolute Neuts (auto) 5.8 Absolute Lymphs (auto) 2.32 Nucleated RBC % 0 Sodium 137 Potassium 4.1 Chloride 105 Carbon Dioxide 21.6 Anion Gap 10 BUN 10 Creatinine 0.76 Estim Creat Clear Calc 97.91 Est GFR (MDRD) Non-Af 103 BUN/Creatinine Ratio 12.6 Glucose 84 Calcium 9.0 Total Bilirubin 0.67 AST 21 ALT 6 Alkaline Phosphatase 64 Total Protein 7.5 Albumin 4.3 Globulin 3.1 Albumin/Globulin Ratio 1.4 Lipase 20 Serum , Qual NEGATIVE Radiography Diagnostic Testing: Clinical Impression(s) from Imaging Studies Abdomen/Pelvis CT 02/16/25 11:12 IMPRESSION: Mild degree of circumferential wall thickening of the terminal ileum in keeping with the patient's history of Crohn's disease. No evidence of small-bowel obstruction or abnormal fluid/abscess collection. Reading Location: [place] [address] Discharge Plan Triage Chief Complaint: Nausea/Vomiting/Diarrhea ED Provider: Silvestre Pearl Dx/Rx/DC Orders Clinical Impression: Crohn's disease, Nausea & vomiting, Blood in stool, Abdominal pain Instructions: ED Crohn's Disease Prescriptions: New prednisone 20 mg tablet 40 mg PO DAILY Qty: 60 0RF metronidazole 500 mg tablet 500 mg PO Q8H Qty: 30 0RF ciprofloxacin HCl 500 mg tablet 500 mg PO BID Qty: 20 0RF oxycodone-acetaminophen 5-325 mg tablet 1 tab PO Q6H PRN PRN (Reason: Pain) 3 Days Qty: 12 0RF ondansetron 4 mg tablet,disintegrating 4 mg PO Q8H PRN PRN (Reason: Nausea) Qty: 10 0RF No Action metoclopramide HCl [Reglan] 5 mg tablet 5 mg PO TID Qty: 90 1RF Rx Instructions: administer 30 minutes before meals fluoxetine 40 mg capsule 40 mg PO DAILY Patient Comments: take 1 capsule by mouth once daily ibuprofen 100 mg/5 mL suspension 400 mg PO Q6H PRN (Reason: pain) Qty: 473 0RF ondansetron 4 mg tablet,disintegrating 4 mg PO Q6H PRN (Reason: nausea and vomiting) Qty: 7 0RF budesonide 3 mg capsule,delayed,extend.release 6 mg PO DAILY Qty: 60 2RF hyoscyamine sulfate 0.125 mg tablet 0.125 mg PO BID PRN (Reason: abdominal pain) Qty: 30 3RF buspirone 5 mg tablet 5 mg PO BID Qty: 60 3RF pantoprazole 20 mg tablet,delayed release (DR/EC) 20 mg PO BID Qty: 60 2RF Stand Alone Forms: ED Work / School Excuse Primary Care Provider: Louann Dolan Referrals: Louann Dolan MD [Primary Care Provider] - Javier Benoit DO [Med Staff - Active Staff] - Keep Kael appointment Activity Restrictions/Additional Instructions: CT scan thickening of the terminal ileum. Labs are stable. Discussed with Dr. Benoit take prednisone as prescribed 2 tabs daily to 80 cm he will taper, when he sees you. Take antibiotic as prescribed. Avoid alcohol or alcohol products while on Flagyl. Pain medicines as needed nausea meds as needed. Continue oral fluids for hydration. Keep your follow-up with him on the . Print Language: Albanian Disposition Disposition: Home, Self Care Discharge Date/Time: 02/16/25 14:50
[2025-02-16 11:26] VITALS: BP 108/64; PULSE 69; RESP 15
[2025-02-16] MEDS: Ondansetron 4 MG/2 ML Vial IV (11:29)
[2025-02-16] MEDS: 0.9% Normal Saline (1000mL) 1,000 ML 999 ML IV (11:29)
[2025-02-16] MEDS: Morphine 4 MG/ML Syringe IV (11:30)
[2025-02-16 11:35] LABS: Absolute Lymphocyte Count 2.32 X10^3/uL (0.83-4.51); Absolute Neutrophil Count 5.8 X10^3/uL (2.0-7.7); Basophil# 0.06 X10^3/uL; Basophil% 0.7 % (0-1); Eosinophil# 0.17 X10^3/uL; Eosinophils% 1.9 % (0-5); Hematocrit 43.3 % (37-47); Hemoglobin 14.6 g/dL (12.0-15.0); Lymphocyte # 2.32 X10^3/ul (0.83-4.51); Lymphocyte % 26.1 % (19-41); Mean Corp Hgb Conc 33.7 g/dL (32-36); Mean Corpuscular Hgb 29.7 pg (27.0-32.0); Mean Corpuscular Volume 88.2 fL (81-99); Mean Platelet Vol. 9.6 fl (6.2-12.0); Monocyte# 0.54 X10^3/uL; Monocyte% 6.1 % (0-10); NRBC Flagged by Analyzer 0 % (0-5); Neutrophil # 5.78 X10^3/uL (2.7-7.7); Neutrophil % 64.9 % (47-70); Platelet Count 282 K/mm3 (150-450); RBC Distribution Width CV 12.5 % (11.6-14.6); RBC Distribution Width SD 40.8 fl (35.1-43.9); Red Blood Count 4.91 M/mm3 (4.2-5.4); White Blood Count 8.9 K/mm3 (4.4-11.0)
[2025-02-16 12:00] VITALS: BP 107/72; PULSE 65; RESP 13
[2025-02-16 12:04] LABS: Internal QC Validated? YES +Cl - CLEAR BKGD; Pregnancy, Serum, hCG Quali. NEGATIVE Negative
[2025-02-16 12:16] LABS: Lipase 20 U/L (13-75)
[2025-02-16 12:33] LABS: ALB/GLOB Ratio 1.4 RATIO (0.9-2.4); AST(SGOT) 21 U/L (<=31); Albumin, Serum 4.3 g/dL (3.5-5.0); Alkaline Phosphatase 64 U/L (35-104); Anion Gap 10 (5-15); BUN 10 mg/dL (4-19); BUN/Creat Ratio 12.6 RATIO (10-20); Carbon Dioxide 21.6 mmol/L (21.0-32.0); Chloride 105 mmol/L (98-108); Creatinine, Serum 0.76 mg/dL (0.70-1.20); EST Glomerular Filtration Rate 103 (>60); Estimated Creatinine Clearance 97.91 ml/min (50-250); Globulin 3.1 g/dL (2.2-4.2); Glucose 84 mg/dL (70-99); Potassium 4.1 mmol/L (3.3-5.1); Protein, Total 7.5 g/dL (5.9-8.4); Sodium Level 137 mmol/L (133-145); Total Bilirubin 0.67 mg/dL (0.00-1.30)
[2025-02-16 12:40] LABS: Alanine Aminotransfer ALT/SGPT 6 U/L (<=34)
[2025-02-16 13:00] VITALS: BP 98/60; PULSE 68; RESP 16
[2025-02-16] MEDS: metroNIDAZOLE 500 MG Tablet PO (14:29)
[2025-02-16] MEDS: Ciprofloxacin 500 MG Tablet PO (14:29)
[2025-02-16] MEDS: MethylPREDNISolone 125 MG/2 ML Vial 80 MG IV (14:30)
[2025-02-16 14:39] VITALS: BP 102/64; PULSE 82; RESP 16; TEMP 36.9; O2SAT 96
== END 2025-02-16 14:50 | disposition home or self-care (01) ==
PROVIDERS: Emergency Provider Emergency Medicine; PCP Internal Medicine; Visit Provider Emergency Medicine
DX: K50.90 Crohn's disease, unspecified, without complications (principal)
CPT/HCPCS: 74177; 80053; 83690; 84703; 85025; 96361; 96374; 96375; 99284; Q9967; J2405

== ENCOUNTER → 2025-03-06 | Outpatient (CLI) | payer OTHER, SELFPAY ==
[2025-03-06 09:48] LABS: Absolute Lymphocyte Count 4.92 X10^3/uL (0.83-4.51); Absolute Neutrophil Count 8.1 X10^3/uL (2.0-7.7); Basophil# 0.07 X10^3/uL; Basophil% 0.5 % (0-1); Eosinophil# 0.14 X10^3/uL; Hematocrit 39.8 % (37-47); Hemoglobin 13.6 g/dL (12.0-15.0); Lymphocyte # 4.92 X10^3/ul (0.83-4.51); Lymphocyte % 34.8 % (19-41); Mean Corp Hgb Conc 34.2 g/dL (32-36); Mean Corpuscular Hgb 30.8 pg (27.0-32.0); Mean Corpuscular Volume 90.2 fL (81-99); Mean Platelet Vol. 9.5 fl (6.2-12.0); Monocyte% 6.4 % (0-10); NRBC Flagged by Analyzer 0 % (0-5); Neutrophil # 8.05 X10^3/uL (2.7-7.7); Neutrophil % 56.9 % (47-70); Platelet Count 287 K/mm3 (150-450); RBC Distribution Width CV 13.5 % (11.6-14.6); RBC Distribution Width SD 44.8 fl (35.1-43.9); Red Blood Count 4.41 M/mm3 (4.2-5.4); White Blood Count 14.1 K/mm3 (4.4-11.0)
[2025-03-06 09:55] LABS: Erythrocyte Sedimentation Rate 8 mm/hr (0-30)
[2025-03-06 12:22] LABS: Amylase 72 U/L (28-100); CRP < 3.00 mg/L (0.0-3.0); LDH 210 U/L (84-246); Lipase 33 U/L (13-75)
[2025-03-09 13:08] LABS: ACCA 19 units (0-90); ALCA 25 units (0-60); AMCA 21 units (0-100); Albumin 3.5 g/dL (2.9-4.4); Alpha-1-Globulins 0.2 g/dL (0.0-0.4); Alpha-2-Globulins 0.6 g/dL (0.4-1.0); Endomysial Antibody IgA Negative (Negative); Gamma Globulin 0.9 g/dL (0.4-1.8); HEPATITIS B SURFACE AG Negative (Negative); Hep C Antibodies Non Reactive (Non Reactive); Hepatitis A IgM Antibody Negative (Negative); Hepatitis B Core AB IgM Negative (Negative); Immunoglobulin A 109 mg/dL (87-352); Immunoglobulin G 908 mg/dL (586-1602); Immunoglobulin M 168 mg/dL (26-217); QNTFERON TB Mitogen Value > 10.00 IU/mL (.); QNTFERON TB Nil Value 0.08 IU/mL (.); QNTFERON TB1+ Ag Value 0.12 IU/mL (.); QNTFERON TB2+ Ag Value 0.12 IU/mL (.); QNTIFERON TB Positive Criteria Negative (Negative); gASCA 22 units (0-50); t-Transglutaminase IgA <2 U/mL (0-3)
== END | disposition home or self-care (01) ==
LOC: LAB 09:04
PROVIDERS: PCP Internal Medicine; Referring Provider Internal Medicine Gastroenterology; Visit Provider Internal Medicine Gastroenterology
DX: K50.90 Crohn's disease, unspecified, without complications (principal); R76.8 Other specified abnormal immunological findings in serum; K31.84 Gastroparesis; R11.2 Nausea with vomiting, unspecified; K92.2 Gastrointestinal hemorrhage, unspecified
CPT/HCPCS: 36415; 80074; 82150; 82784; 83516; 83615; 83690; 84165; 85025; 85652; 86003; 86005; 86036; 86140; 86255; 86334; 86480; 86671

== ENCOUNTER → 2025-03-29 | Outpatient (CLI) | payer OTHER, SELFPAY ==
--- NOTE | 2025-03-29 11:46 | NM_ITS ---
PROCEDURE: HEPATOBILLIARY IMG W/PHARM INT 03/29/2025 REASON FOR EXAM: ABDOMINAL PAIN TECHNIQUE: Intravenous Choletec with planar imaging of the abdomen. Gallbladder ejection fraction was calculated following cholecystokinin administration. RADIOPHARMACEUTICAL: 5.8 mCi technetium 99 M mebrofenin intravenous. COMPARISON: Abdomen and pelvis CT examination of 02/16/2025. FINDINGS: There is good uptake of the radiopharmaceutical by the liver. Satisfactory hepatic uptake excretion is seen. Small bowel activity seen by the 10 minute film. Normal gallbladder visualization with the gallbladder identified by 10 minutes. Following cholecystokinin administration, a gallbladder ejection fraction was calculated at 84 %, at the 32 minute timeframe. NM/Hepatobilliary Img w/Pharm Int IMPRESSION: 1. Normal hepatobiliary scan. 2. Normal gallbladder ejection fraction. Reading Location: [place] [address]
== END | disposition home or self-care (01) ==
LOC: NM 11:46
PROVIDERS: PCP Internal Medicine; Referring Provider Internal Medicine Gastroenterology; Visit Provider Internal Medicine Gastroenterology
DX: K50.90 Crohn's disease, unspecified, without complications (principal); R76.8 Other specified abnormal immunological findings in serum
CPT/HCPCS: 78227; A9537; J2805

== ENCOUNTER → 2025-09-13 | Outpatient (CLI) | payer OTHER, SELFPAY ==
[2025-09-13 15:36] LABS: Hematocrit 41.9 % (37-47); Hemoglobin 14.5 g/dL (12.0-15.0); Immature Granulocytes Count 0.040 X10^3/uL (0.0-0.0); Mean Corp Hgb Conc 34.6 g/dL (32-36); Mean Corpuscular Volume 89.1 fL (81-99); Mean Platelet Vol. 9.7 fl (6.2-12.0); NRBC Flagged by Analyzer 0 % (0-5); Platelet Count 369 K/mm3 (150-450); RBC Distribution Width CV 12.8 % (11.6-14.6); RBC Distribution Width SD 42.0 fl (35.1-43.9); Red Blood Count 4.70 M/mm3 (4.2-5.4); White Blood Count 11.8 K/mm3 (4.4-11.0)
[2025-09-13 15:42] LABS: AST(SGOT) 29 U/L (<=31); Alanine Aminotransfer ALT/SGPT 12 U/L (<=34); Albumin, Serum 4.2 g/dL (3.5-5.0); Alkaline Phosphatase 59 U/L (35-104); Anion Gap 10 (5-15); BUN 7 mg/dL (4-19); BUN/Creat Ratio 8.3 RATIO (10-20); Calcium,Total 9.1 mg/dL (7.6-11.0); Carbon Dioxide 24.1 mmol/L (21.0-32.0); Chloride 105 mmol/L (98-108); Globulin 2.9 g/dL (2.2-4.2); Glucose 84 mg/dL (70-99); Potassium 3.7 mmol/L (3.3-5.1)
[2025-09-13 16:47] LABS: Amylase 57 U/L (28-100); CRP 5.59 mg/L (0.0-3.0); Lipase 26 U/L (13-75)
== END | disposition home or self-care (01) ==
LOC: LAB 14:42
PROVIDERS: Referring Provider Internal Medicine Gastroenterology; Visit Provider Internal Medicine Gastroenterology
DX: K50.90 Crohn's disease, unspecified, without complications (principal); K31.84 Gastroparesis
CPT/HCPCS: 36415; 80053; 82150; 83690; 85025; 85652; 86140

== ENCOUNTER 2025-10-04 13:50 | Emergency (ER) | payer OTHER, SELFPAY ==
[2025-10-04 13:52] VITALS: BP 107/66; PULSE 112; RESP 18; TEMP 35.9; O2SAT 99; BMI 30.9
[2025-10-04] MEDS: 0.9% Normal Saline (1000mL) 1,000 ML 999 ML IV (14:25)
[2025-10-04 14:30] LABS: Hematocrit 41.5 % (37-47); Hemoglobin 13.8 g/dL (12.0-15.0); Immature Granulocytes Count 0.070 X10^3/uL (0.0-0.0); Mean Corp Hgb Conc 33.3 g/dL (32-36); Mean Corpuscular Volume 91.6 fL (81-99); Mean Platelet Vol. 10.0 fl (6.2-12.0); NRBC Flagged by Analyzer 0 % (0-5); Platelet Count 333 K/mm3 (150-450); RBC Distribution Width CV 12.7 % (11.6-14.6); RBC Distribution Width SD 42.3 fl (35.1-43.9); Red Blood Count 4.53 M/mm3 (4.2-5.4); White Blood Count 12.8 K/mm3 (4.4-11.0)
[2025-10-04 14:43] LABS: Internal QC Validated? YES +Cl - CLEAR BKGD; Pregnancy, Serum, hCG Quali. NEGATIVE Negative; Record Kit Lot#, Serum Preg. 980607
[2025-10-04 14:48] LABS: AST(SGOT) 21 U/L (<=31); Alanine Aminotransfer ALT/SGPT < 5 U/L (<=34); Albumin, Serum 4.4 g/dL (3.5-5.0); Alkaline Phosphatase 65 U/L (35-104); Anion Gap 10 (5-15); BUN 13 mg/dL (4-19); BUN/Creat Ratio 16.8 RATIO (10-20); Bilirubin, Direct 0.18 mg/dL (0.00-0.30); Calcium,Total 8.9 mg/dL (7.6-11.0); Carbon Dioxide 25.2 mmol/L (21.0-32.0); Chloride 103 mmol/L (98-108); Estimated Creatinine Clearance 101.07 ml/min (50-250); Globulin 2.7 g/dL (2.2-4.2); Glucose 92 mg/dL (70-99); Lipase 38 U/L (13-75); Potassium 4.0 mmol/L (3.3-5.1)
--- NOTE | 2025-10-04 14:50 | CT_ITS ---
PROCEDURE: ABDOMEN/PELVIS W IV CONT ONLY 10/04/2025 REASON FOR EXAM: ABDOMINAL PAIN COLITIS TECHNIQUE: Procedure Code: [id number] Modality: CT Procedure: ABDOMEN/PELVIS W IV CONT ONLY Coronal and Sagittal reconstruction series were provided. CONTRAST: Isovue-300 VOLUME: 96 mL One or more dose reduction techniques were used (e.g., Automated exposure control, adjustment of the mA and/or kV according to patient size, use of iterative reconstruction technique. RADIATION DOSE SUMMARY: CTDlvol: 9+ 10 mGy DLP: 597 mGycm COMPARISON: 02/16/2025. FINDINGS: The peripheral soft tissues unremarkable. Degenerative changes of the spine most pronounced at L3-4 and L4-5. Normal caliber abdominal aorta no suspicious lymphadenopathy. The liver, gallbladder, pancreas, spleen, adrenals are unremarkable. Symmetric enhancement of the bilateral kidneys. No hydroureteronephrosis. The urinary bladder is unremarkable. Anteverted uterus. Normal caliber large and small bowel without surrounding inflammatory changes. CT/Abdomen/Pelvis W IV Cont ONLY IMPRESSION: No acute abnormalities of the abdomen or pelvis. Reading Location: [address]
--- NOTE | 2025-10-04 15:22 | ED.VIS.GI ---
HPI HPI - GI History of Present Illness Chief Complaint: Abd Pain Informant: patient Narrative Narrative: 35-year-old female presenting to the emergency room with abdominal pain and nausea. Patient states she has a history of Crohn's disease and follows with Dr. Blanco from [facility]. She is unsure what medicine she is on. She states she has had Crohn's for about 1 year. She states that typically she has joy consistency stools but today has been watery. No reported fever. PFSH PFSH Medical History Crohn disease Wears glasses Anxiety Alcohol use Marijuana use History of steroid therapy Arthritis Low iron Easy bruising Restless legs Back pain Loss of consciousness Injury of head and neck Syncope Gastric reflux Asthma Shortness of breath on exertion History of pain when walking History of irregular heartbeat Migraine Bipolar disorder Home Medications ?Medication ?Instructions ?Recorded ?Last Taken ?Type fluoxetine 40 mg capsule 40 mg PO DAILY bipolar 01/13/22 12/02/23 History budesonide 3 mg 6 mg (2 x 3 mg) PO DAILY #60 ea 09/13/25 Unknown Rx capsule,delayed,extended release dicyclomine 20 mg tablet 20 mg PO TID #90 TABLETS 09/13/25 Unknown Rx hyoscyamine sulfate 0.125 mg tablet 0.125 mg PO BID PRN abdominal pain 09/13/25 Unknown Rx #30 tabs ondansetron 4 mg disintegrating 4 mg PO Q8H PRN PRN Nausea #60 tabs 09/13/25 Unknown Rx tablet pantoprazole 20 mg tablet,delayed 20 mg PO BID #60 TABLETS 09/13/25 Unknown Rx release prednisone 20 mg tablet 40 mg (2 x 20 mg) PO DAILY 7 days 10/04/25 Unknown Rx #14 TABLETS Allergy/AdvReac Type Severity Reaction Status Date / Time sumatriptan (From Imitrex) AdvReac Mild Other Verified 10/04/25 13:51 Surgical History Hx of tonsillectomy Social History housing: house Smoking Status: Never smoker alcohol intake: current substance use type: does not use ROS ROS ED Constitutional Constitutional ED: Denies chills, fever(s) or weight loss Eyes Eyes: Denies change in vision or diplopia ENT ENT ED: Denies ear pain, rhinorrhea or sore throat Cardiovascular Cardiovascular: Denies chest pain, orthopnea, palpitations or racing heartbeat Respiratory/Chest Respiratory/Chest: Denies cough, dyspnea or orthopnea Gastrointestinal Gastrointestinal: Reports abdominal pain, diarrhea and nausea; Denies vomiting Genitourinary Genitourinary ED: Denies dysuria, hematuria or urinary frequency Musculoskeletal Musculoskeletal: Reports arthralgias; Denies myalgias Integumentary Denies abscess or rash Neurologic Neurologic: Denies headache(s) or weakness Psychiatric Psychiatric: Denies anxiety, depression, suicidal ideation or suicidal thoughts Endocrine Endocrinology: Denies polydipsia, polyphagia or polyuria Allergic/Immunologic Allergic/Immunologic ED: Denies mouth swelling, tongue swelling or urticaria EXAM Physical Exam Const Vital Signs: 10/04/25 13:52 10/04/25 15:51 Temperature 96.6 F L Temperature Source Temporal Pulse Rate 112 H 70 Respiratory Rate 18 16 Blood Pressure 107/66 111/70 Blood Pressure Mean 79 83 Pulse Ox 99 99 Oxygen Delivery Method Room Air Positive well nourished and well developed General Appearance ED: well developed HEENT Reports normocephalic, head/scalp atraumatic and moist mucous membranes Eyes PERRL and EOMs intact bilaterally Neck no lymphadenopathy, supple and no JVD Resp normal respiratory effort and clear to auscultation bilaterally Cardio regular rate, regular rhythm and no murmurs GI Auscultation: normoactive bowel sounds Palpation: soft and tender other (Diffuse); Negative for guarding or rebound tenderness present Back/Spine no CVA tenderness and normal ROM Extremity normal to inspection General Extremety ED: Negative for edema General Extremity: Negative for edema Neuro oriented x3 and CN's II-XII intact bilaterally Sensorium / Orientation: alert Motor Exam: strength 5/5 throughout Psych mental status grossly normal Mood & Affect: Negative for depressed or tearful Skin no rashes or lesions noted and no wounds MDM MDM MDM Narrative Medical decision making narrative: Differential diagnosis includes but not limited to colitis Crohn's disease bowel obstruction dehydration electrolyte abnormalities gallbladder disease pancreatitis Basic blood work shows a white count of 12.8 73.7 neutrophils. BMP liver enzymes and lipase within normal limits. test is negative. CT of the abdomen pelvis was obtained. Please see radiologist read for full details. 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 Rearranges started her on prednisone 40 mg days. Return if worsening follow-up with GI if not improving History & Record Review Discussion w/independent historian: Patient Additional record(s) reviewed:: Prior outpatient record, Prior ED visit and Prior labs Lab Data Attestation: I reviewed the patient's lab results. Labs: Laboratory Results - last 24 hr 10/04/25 14:10 WBC 12.8 H RBC 4.53 Hgb 13.8 Hct 41.5 MCV 91.6 MCH 30.5 MCHC 33.3 RDW Std Deviation 42.3 RDW Coeff of Duy 12.7 Plt Count 333 MPV 10.0 Immature Gran % (Auto) 0.500 Neut % (Auto) 73.7 H Lymph % (Auto) 17.7 L [place] % (Auto) 5.9 Eos % (Auto) 1.5 Baso % (Auto) 0.7 Absolute Neuts (auto) 9.4 H Absolute Lymphs (auto) 2.27 Nucleated RBC % 0 Sodium 138 Potassium 4.0 Chloride 103 Carbon Dioxide 25.2 Anion Gap 10 BUN 13 Creatinine 0.76 Estim Creat Clear Calc 101.07 Est GFR (MDRD) Non-Af 103 BUN/Creatinine Ratio 16.8 Glucose 92 Calcium 8.9 Total Bilirubin 0.40 Direct Bilirubin 0.18 AST 21 ALT < 5 Alkaline Phosphatase 65 Total Protein 7.1 Albumin 4.4 Globulin 2.7 Lipase 38 Serum , Qual NEGATIVE Radiography Diagnostic Testing: Clinical Impression(s) from Imaging Studies Abdomen/Pelvis CT 10/04/25 14:50 IMPRESSION: No acute abnormalities of the abdomen or pelvis. Reading Location: [address] Management Discussion w/another healthcare provider: Chief Operator [employer] (Dr Benoit) Discharge Plan Triage Chief Complaint: Abd Pain ED Provider: Vince Serna Dx/Rx/DC Orders Clinical Impression: Crohn disease, Diarrhea, Abdominal pain Instructions: ED Crohn's Disease Prescriptions: New prednisone 20 mg tablet 40 mg PO DAILY 7 Days Qty: 14 0RF No Action budesonide 3 mg capsule,delayed,extend.release 6 mg PO DAILY Qty: 60 2RF dicyclomine 20 mg tablet 20 mg PO TID Qty: 90 1RF hyoscyamine sulfate 0.125 mg tablet 0.125 mg PO BID PRN (Reason: abdominal pain) Qty: 30 3RF ondansetron 4 mg tablet,disintegrating 4 mg PO Q8H PRN PRN (Reason: Nausea) Qty: 60 2RF pantoprazole 20 mg tablet,delayed release (DR/EC) 20 mg PO BID Qty: 60 2RF fluoxetine 40 mg capsule 40 mg PO DAILY Patient Comments: take 1 capsule by mouth once daily Primary Care Provider: Louann Dolan Referrals: Louann Dolan MD [Primary Care Provider, Internal Medicine] - As Needed Friend,DO Javier [Med Staff - Active Staff, Gastroenterology] - 1 Week if not improving Print Language: Swazi Disposition Disposition: Home, Self Care
[2025-10-04 15:51] VITALS: BP 111/70; PULSE 70; RESP 16; O2SAT 99
[2025-10-04 16:26] VITALS: BP 111/70; PULSE 70; RESP 16; TEMP 36.8; O2SAT 99
== END 2025-10-04 16:27 | disposition home or self-care (01) ==
PROVIDERS: Emergency Provider Emergency Medicine; PCP Internal Medicine; Visit Provider Emergency Medicine
DX: R10.9 Unspecified abdominal pain (principal); K50.90 Crohn's disease, unspecified, without complications; F31.9 Bipolar disorder, unspecified; Z79.899 Other long term (current) drug therapy; R19.7 Diarrhea, unspecified; J45.909 Unspecified asthma, uncomplicated; Z79.51 Long term (current) use of inhaled steroids
CPT/HCPCS: 74177; 80048; 80076; 83690; 84703; 85025; 96360; 96361; 99282; Q9967; A4216